=== PATIENT | male | born 1950 | race Hispanic/Latino ===

== ENCOUNTER 2018-12-19 23:35 | Inpatient (IN) | payer OTHER ==
[2018-12-20] MEDS ORDERED: ALBUTEROL 2.5 MG/3 ML NEB SOL ONE (00:13)
[2018-12-20 00:27] LABS: Absolute Monocytes 0.5 K/uL (0.1-1.3); Absolute Neutrophil 3.6 K/uL (1.8-8.0); Basophils % 1.2 % (0-1.3); Eosinophils % 5.4 % (0-4.4); Hematocrit 48.1 % (39.6-49.0); RBC Red Blood Cell Count 5.34 M/uL (4.33-5.43)
[2018-12-20 00:29] LABS: Protime INR 0.92
[2018-12-20 00:40] LABS: ALT/SGPT 19 U/L (12-78); AST/SGOT 14 U/L (15-37); Albumin 3.7 g/dL (3.4-5.0); Alkaline Phosphatase 126 U/L (45-117); BUN Blood Urea Nitrogen 6 mg/dL (7-18); Bicarbonate 24 mmol/L (21-32); Bilirubin Direct < 0.1 mg/dL (0-0.2); Bilirubin Total 0.3 mg/dL (0.2-1.0); CKMB Creatine Kinase MB 4.4 ng/mL (0.3-3.6); Creatine Phosphokinase 112 U/L (39-308); Glucose Level 225 mg/dL (74-106); Lipase 159 U/L (73-393); NT PRO-BNP 84 pg/mL (<125); Potassium 3.4 mmol/L (3.5-5.1); Protein, Total 7.7 g/dL (6.4-8.2); Sodium Level 139 mmol/L (136-145); Troponin (Emerg Dept Use Only) < 0.02 ng/mL (0.0-0.045)
--- NOTE | 2018-12-20 02:30 | ER ---
Nurse's Notes [facility] Name: Prakash Bailey Age: 68 yrs Sex: Male : 1950 Arrival Date: 12/19/2018 Time: 23:44 Bed 14 Private MD: Diagnosis: Chronic obstructive pulmonary disease, unspecified;Hypoxemia Presentation: 12/19 23:30 Presenting complaint: EMS states: general weakness and wheezing. Transition of care: cc3 patient was not received from another setting of care. Onset of symptoms was December 19, 2018. Risk Assessment: Do you want to hurt yourself or someone else? Patient reports no desire to harm self or others. Initial Sepsis Screen: Does the patient meet any 2 criteria? No. Patient's initial sepsis screen is negative. Does the patient have a suspected source of infection? No. Patient's initial sepsis screen is negative. Care prior to arrival: Medication(s) given: Albuterol Neb x 1, Atrovent Neb x 1, given by EMS. 23:30 Method Of Arrival: EMS: [facility] cc3 23:30 Acuity: BILL 3 cc3 Triage Assessment: 23:30 General: Appears in no apparent distress. unkempt, Behavior is calm, cooperative. Pain: cc3 Denies pain. EENT: No signs and/or symptoms were reported regarding the EENT system. Neuro: Level of Consciousness is awake, alert, obeys commands, Oriented to person, place, time, situation, Appropriate for age. Cardiovascular: Denies chest pain. Respiratory: Airway is patent Respiratory effort is even, unlabored, Respiratory pattern is regular, symmetrical. GI: Abdomen is round non-distended. : No signs and/or symptoms were reported regarding the genitourinary system. Derm: No signs and/or symptoms reported regarding the dermatologic system. Musculoskeletal: Circulation, motion, and sensation intact. Range of motion: intact in all extremities. Historical: - Allergies: 23:30 Aspirin; cc3 - PMHx: 23:30 Diabetes - IDDM; Hypertension; Substance Abuse; cc3 - Immunization history:: Adult Immunizations not up to date. - Social history:: Smoking status: Patient uses tobacco products, smokes one pack cigarettes per day. - Ebola Screening: : No symptoms or risks identified at this time. Screenin:30 Abuse screen: Denies threats or abuse. Denies injuries from another. Nutritional cc3 screening: No deficits noted. Tuberculosis screening: No symptoms or risk factors identified. Fall Risk Ambulatory Aid- None/Bed Rest/Nurse Assist (0 pts). Gait- Normal/Bed Rest/Wheelchair (0 pts) Mental Status- Oriented to own ability (0 pts). Assessment: 23:30 General: see triage assessment. cc3 12/20 00:30 Reassessment: Patient appears in no apparent distress at this time. Patient and/or cc3 family updated on plan of care and expected duration. Pain level reassessed. Patient is alert, oriented x 3, equal unlabored respirations, skin warm/dry/pink. 01:09 Reassessment: Patient appears in no apparent distress at this time. Patient and/or cc3 family updated on plan of care and expected duration. Pain level reassessed. Patient is alert, oriented x 3, equal unlabored respirations, skin warm/dry/pink. 02:26 Reassessment: Patient appears in no apparent distress at this time. Patient and/or cc3 family updated on plan of care and expected duration. Pain level reassessed. Patient is alert, oriented x 3, equal unlabored respirations, skin warm/dry/pink. 03:30 Reassessment: Patient appears in no apparent distress at this time. Patient and/or cc3 family updated on plan of care and expected duration. Pain level reassessed. Patient is alert, oriented x 3, equal unlabored respirations, skin warm/dry/pink. Patient came back from CT scan, awaiting result. Patient for admission, Dr. Quach said to wait for the CT scan result before sending the patient for admission. 04:00 Reassessment: Patient appears in no apparent distress at this time. Patient and/or cc3 family updated on plan of care and expected duration. Pain level reassessed. Patient is alert, oriented x 3, equal unlabored respirations, skin warm/dry/pink. CT report is now available with result of negative for PE. Room available at 412, called for report but was told that the nurse who will receive will just call me back. 04:41 Reassessment: Called again extension [phone] for report but was told that the nurse who cc3 will receive will call me back, charge nurse Sangeetha informed. 04:58 Reassessment: Report handed over to RACHEL Arndt for continuity of care. cc3 05:10 Reassessment: Patient appears in no apparent distress at this time. Patient and/or cc3 family updated on plan of care and expected duration. Pain level reassessed. Patient is alert, oriented x 3, equal unlabored respirations, skin warm/dry/pink. Patient left ER for admission vitally stable by wheelchair escorted by senior electronics technician Sathish. Vital Signs: 12/19 23:30 BP 151 / 99; Pulse 103; Resp 20 S; Temp 98.4(O); Pulse Ox 86% on R/A; Weight 63.5 kg cc3 (R); Height 5 ft. 7 in. (170.18 cm) (R); 12/20 00:30 BP 125 / 89; Pulse 98; Resp 18 S; Pulse Ox 90% on 2 lpm NC; cc3 01:08 BP 141 / 75; Pulse 110; Resp 20 S; Pulse Ox 90% on 2 lpm NC; cc3 02:27 BP 134 / 77; Pulse 108; Resp 20 S; Pulse Ox 83% on R/A; cc3 03:10 BP 126 / 77; Pulse 105; Resp 17 S; Pulse Ox 93% on 2 lpm NC; cc3 04:10 BP 124 / 68; Pulse 95; Resp 17 S; Pulse Ox 92% on 2 lpm NC; cc3 04:30 BP 126 / 71; Pulse 106; Resp 18 S; Pulse Ox 95% on 2 lpm NC; cc3 04:50 BP 125 / 67; Pulse 108; Resp 17 S; Pulse Ox 94% on 2 lpm NC; cc3 12/19 23:30 Body Mass Index 21.93 (63.50 kg, 170.18 cm) cc3 12/19 23:30 90% on 2 LPM via nasal cannula cc3 ED Course: 23:30 Patient has correct armband on for positive identification. Bed in low position. Call cc3 light in reach. Side rails up X2. Pulse ox on. NIBP on. 23:30 Arm band placed on right wrist. Patient notified of wait time. cc3 23:30 Maintain EMS IV. Dressing intact. Good blood return noted. Site clean \T\ dry. Gauge \T\ cc 3 site: gauge 20 right forearm. 23:44 Patient arrived in ED. fc 23:45 Main, Eh, MD is Attending Physician. tw4 23:46 Usha Gamez is Primary Nurse. cc3 23:50 Triage completed. cc3 12/20 00:11 X-ray completed. Portable x-ray completed in exam room. Patient tolerated procedure jb2 well. 00:29 XRAY CXR (1 view) In Process Unspecified. EDMS 02:28 Carolyn Rivas MD is Hospitalizing Provider. tw4 03:[address] via stretcher. kw1 03:26 CT completed. Patient tolerated procedure well. Patient moved back from CT. kw1 04:30 No provider procedures requiring assistance completed. Patient admitted, IV remains in cc3 place. Administered Medications: 00:00 Drug: Albuterol 2.5 mg Route: Inhalation; cc3 00:30 Drug: Albuterol 2.5 mg Route: Inhalation; cc3 00:57 Drug: Albuterol 2.5 mg Route: Inhalation; cc3 02:38 Drug: SOLU-Medrol 125 mg Route: IVP; Site: right forearm; cc3 03:00 Follow up: Response: No adverse reaction cc3 Outcome: 02:29 Decision to Hospitalize by Provider. tw4 04:58 Admitted to Tele accompanied by nurse, via stretcher, room 412, with oxygen, with cc3 chart, Report called to Fariha Arndt 04:58 Condition: stable 04:58 Instructed on the need for admit, Demonstrated understanding of instructions. 05:13 Patient left the ED. cc3 Signatures: Dispatcher [employer] EDTX Owen Marie jb2 Sangeetha Elizalde RN RN Fifi Dave kw1 Eh Quach MD MD tw4 Usha Gamez cc3 Corrections: (The following items were deleted from the chart) 01:16 00:30 BP 125 / 89; Pulse 98bpm; Resp 18bpm; Spontaneous; Pulse Ox 94% 2 lpm Nasal cc3 Cannula; cc3 01:16 01:08 BP 141 / 75; Pulse 110bpm; Resp 20bpm; Spontaneous; Pulse Ox 94% 2 lpm Nasal cc3 Cannula; cc3
--- NOTE | 2018-12-20 02:30 | EDPHYS ---
Physician Documentation [facility] Name: Prakash Bailey Age: 68 yrs Sex: Male : 1950 Arrival Date: 12/19/2018 Time: 23:44 Bed 14 Private MD: ED Physician Eh Quach HPI: 12/20 03:24 This 68 yrs old Male presents to ER via EMS with complaints of COPD tw4 Exacerbation. 03:24 The patient has shortness of breath at rest. Onset: The symptoms/episode began/occurred tw4 yesterday. Duration: The symptoms are continuous, and are unchanged since they started. The patient has not experienced similar symptoms in the past. Historical: - Allergies: 12/19 23:30 Aspirin; cc3 - PMHx: 23:30 Diabetes - IDDM; Hypertension; Substance Abuse; cc3 - Immunization history:: Adult Immunizations not up to date. - Social history:: Smoking status: Patient uses tobacco products, smokes one pack cigarettes per day. - Ebola Screening: : No symptoms or risks identified at this time. ROS: 12/20 03:24 Constitutional: Negative for fever, chills, and weight loss, Eyes: Negative for injury, tw4 pain, redness, and discharge, Cardiovascular: Negative for chest pain, palpitations, and edema, Abdomen/GI: Negative for abdominal pain, nausea, vomiting, diarrhea, and constipation, Back: Negative for injury and pain, MS/Extremity: Negative for injury and deformity, Skin: Negative for injury, rash, and discoloration. Respiratory: Positive for cough, shortness of breath, at rest. Negative for dyspnea on exertion, hemoptysis, orthopnea, pleurisy. Exam: 03:24 Constitutional: This is a well developed, well nourished patient who is awake, alert, tw4 and in no acute distress. Head/Face: Normocephalic, atraumatic. Chest/axilla: Normal chest wall appearance and motion. Nontender with no deformity. No lesions are appreciated. Cardiovascular: Regular rate and rhythm with a normal S1 and S2. No gallops, murmurs, or rubs. Normal PMI, no JVD. No pulse deficits. Abdomen/GI: Soft, non-tender, with normal bowel sounds. No distension or tympany. No guarding or rebound. No evidence of tenderness throughout. Back: No spinal tenderness. No costovertebral tenderness. Full range of motion. MS/ Extremity: Pulses equal, no cyanosis. Neurovascular intact. Full, normal range of motion. Neuro: Awake and alert, GCS 15, oriented to person, place, time, and situation. Cranial nerves II-XII grossly intact. Motor strength 5/5 in all extremities. Sensory grossly intact. Cerebellar exam normal. Normal gait. 03:24 Respiratory: mild respiratory distress is noted, Respirations: normal, Breath sounds: wheezing: expiratory is heard diffusely. Vital Signs: 12/19 23:30 BP 151 / 99; Pulse 103; Resp 20 S; Temp 98.4(O); Pulse Ox 86% on R/A; Weight 63.5 kg cc3 (R); Height 5 ft. 7 in. (170.18 cm) (R); 12/20 00:30 BP 125 / 89; Pulse 98; Resp 18 S; Pulse Ox 90% on 2 lpm NC; cc3 01:08 BP 141 / 75; Pulse 110; Resp 20 S; Pulse Ox 90% on 2 lpm NC; cc3 02:27 BP 134 / 77; Pulse 108; Resp 20 S; Pulse Ox 83% on R/A; cc3 03:10 BP 126 / 77; Pulse 105; Resp 17 S; Pulse Ox 93% on 2 lpm NC; cc3 04:10 BP 124 / 68; Pulse 95; Resp 17 S; Pulse Ox 92% on 2 lpm NC; cc3 04:30 BP 126 / 71; Pulse 106; Resp 18 S; Pulse Ox 95% on 2 lpm NC; cc3 04:50 BP 125 / 67; Pulse 108; Resp 17 S; Pulse Ox 94% on 2 lpm NC; cc3 12/19 23:30 Body Mass Index 21.93 (63.50 kg, 170.18 cm) cc3 12/19 23:30 90% on 2 LPM via nasal cannula cc3 MDM: 23:45 Patient medically screened. tw4 12/20 03:24 Differential diagnosis: Anemia Anxiety Reaction pneumonia, Pneumothorax pulmonary tw4 edema, reactive airway disease. Data reviewed: vital signs, nurses notes. Counseling: I had a detailed discussion with the patient and/or guardian regarding: the historical points, exam findings, and any diagnostic results supporting the discharge/admit diagnosis. Physician consultation: Carolyn Rivas MD was called at 02:36, regarding admission, patient's condition, need to evaluate the patient as soon as possible, and will see patient in inpatient room. 03:26 Medication response: albuterol nebulizer treatment(s) partially relieved the patient's tw4 wheezing. Response to treatment: the patient's symptoms have mildly improved after treatment, and as a result, I will admit patient. 12/19 23:54 Order name: Blood Culture Adult (2) 12/19 23:54 Order name: BMP; Complete Time: 02:27 12/20 02:27 Interpretation: Normal except: K 3.4; GLUC 225; BUN 6. 12/19 23:54 Order name: CBC with Diff 12/19 23:54 Order name: Ckmb; Complete Time: 02:27 12/20 02:27 Interpretation: Normal except: CKMB 4.4. 12/19 23:54 Order name: CPK; Complete Time: 02:27 12/20 02:27 Interpretation: Within normal limits: CPK 112. 12/19 23:54 Order name: D-Dimer 12/19 23:54 Order name: Hepatic Function; Complete Time: 02:27 12/20 02:27 Interpretation: Normal except: AST 14; ALK 126; GLOB 4.0; A/G 0.9. 12/19 23:54 Order name: Lipase; Complete Time: 02:27 12/20 02:27 Interpretation: Within normal limits: LIP 159. 12/19 23:54 Order name: Magnesium; Complete Time: 02:27 12/20 02:27 Interpretation: Within normal limits: MG 2.0. 12/19 23:54 Order name: NT PRO-BNP; Complete Time: 02:12/20 02:28 Interpretation: Within normal limits: NT PRO-BNP 84. 12/19 23:54 Order name: PT-INR 12/19 23:54 Order name: Ptt, Activated 12/19 23:54 Order name: Troponin (emerg Dept Use Only); Complete Time: 02:12/20 02:28 Interpretation: Within normal limits: TROPED < 0.02. 12/20 02:10 Order name: Urine Dipstick--Ancillary (enter results) 2 12/19 23:54 Order name: Call for Old EKG; Complete Time: 00:29 12/19 23:54 Order name: XRAY CXR (1 view) 12/19 23:54 Order name: EKG; Complete Time: 23:55 12/20 02:43 Order name: NPO EDMS 12/20 02:43 Order name: Urinalysis EDMS 12/20 02:43 Order name: CBC with Automated Diff EDMS 12/20 02:43 Order name: CBC with Automated Diff EDMS 12/20 02:43 Order name: Comprehensive Metabolic Panel EDMS 12/20 02:43 Order name: Comprehensive Metabolic Panel EDMS 12/20 02:43 Order name: Magnesium EDMS 12/20 02:43 Order name: Magnesium EDMS 12/20 02:43 Order name: Phosphorus EDMS 12/20 02:43 Order name: Phosphorus EDMS 12/20 02:44 Order name: CT Chest For PE Angio 12/19 23:54 Order name: Cardiac monitoring; Complete Time: 23:59 12/19 23:54 Order name: EKG - Nurse/Tech; Complete Time: 00:31 12/19 23:54 Order name: IV Saline Lock; Complete Time: 00:30 12/19 23:54 Order name: Labs collected and sent; Complete Time: 00:30 12/19 23:54 Order name: O2 Per Protocol; Complete Time: 00:00 12/19 23:54 Order name: O2 Sat Monitoring; Complete Time: 00:00 EC:24 Rate is 103 beats/min. Rhythm is regular, Sinus tachycardia. QRS [place] is Normal. DE tw4 interval is normal. QRS interval is normal. QT interval is normal. No Q waves. T waves are Normal. No ST changes noted. Clinical impression: Sinus tachycardia. Interpreted by me. Reviewed by me. Administered Medications: 00:00 Drug: Albuterol 2.5 mg Route: Inhalation; cc3 00:30 Drug: Albuterol 2.5 mg Route: Inhalation; cc3 00:57 Drug: Albuterol 2.5 mg Route: Inhalation; cc3 02:38 Drug: SOLU-Medrol 125 mg Route: IVP; Site: right forearm; cc3 03:00 Follow up: Response: No adverse reaction cc3 Disposition: 12/20/18 02:29 Hospitalization ordered by Carolyn Rivas for Observation. Preliminary diagnosis are Chronic obstructive pulmonary disease, unspecified, Hypoxemia. - Bed requested for Telemetry/MedSurg (observation). - Status is Observation. cc3 - Condition is Fair. - Problem is an ongoing problem. - Symptoms are unchanged. UTI on Admission? No Signatures: Dispatcher [employer] Natasha Pat, RN RN cg Eh Quach MD MD tw4 Usha Gamez cc3 Corrections: (The following items were deleted from the chart) 03:09 02:29 Hospitalization Ordered by Carolyn Rivas MD for Observation. Preliminary cg diagnosis is Chronic obstructive pulmonary disease, unspecified; Hypoxemia. Bed requested for Telemetry/MedSurg (observation). Status is Observation. Condition is Fair. Problem is an ongoing problem. Symptoms are unchanged. UTI on Admission? No. tw4 05:13 03:09 12/20/2018 02:29 Hospitalization Ordered by Carolyn Rivas MD for Observation. cc3 Preliminary diagnosis is Chronic obstructive pulmonary disease, unspecified; Hypoxemia. Bed requested for Telemetry/MedSurg (observation). Status is Observation. Condition is Fair. Problem is an ongoing problem. Symptoms are unchanged. UTI on Admission? No. cg
[2018-12-20] MEDS ORDERED: MAGNESIUM HYDROXIDE 8% 30 ML PO PRN (02:38)
[2018-12-20] MEDS ORDERED: ALPRAZOLAM 0.25 MG TABLET PO PRN (02:38)
[2018-12-20] MEDS ORDERED: ACETAMINOPHEN 500 MG TAB PO PRN (02:38)
[2018-12-20] MEDS ORDERED: ONDANSETRON 4 MG/2 ML VIAL IV PRN (02:38)
[2018-12-20] MEDS ORDERED: METHYLPREDNISOLONE 125 MG INJ ONE (02:44)
[2018-12-20 02:54] LABS: Urine Blood NEGATIVE (NEG); Urine Glucose 1+ (NEG); Urine Protein NEGATIVE (NEG); Urine Specific Gravity <1.005 (1.005-1.030); Urine pH 5.5 (5.0-7.0)
[2018-12-20] MEDS: PANTOPRAZOLE 40MG TABLET PO SCH (05:41)
[2018-12-20] MEDS: LEVOTHYROXINE SOD 0.05 MG TABLET PO SCH (05:42)
[2018-12-20] MEDS ORDERED: METHYLPREDNISOLONE 125 MG INJ IV SCH (06:00)
[2018-12-20 06:02] VITALS: BMI 25.0
[2018-12-20 06:09] LABS: Urine Culture Reflex Order NOT NEEDED; Urine RBC NONE SEEN /HPF (NONE SEEN)
[2018-12-20 06:10] LABS: Urine Bacteria <20 /HPF (NONE SEEN)
[2018-12-20] MEDS: ALBUTEROL 2.5 MG/3 ML NEB SOL NEB SCH ×3 (07:35→20:00)
[2018-12-20] MEDS: IPRATROPIUM BROM 0.5MG/2.5ML NEB SCH ×3 (07:35→20:00)
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
--- NOTE | 2018-12-20 08:16 | RAD REPORT ---
EXAM DESCRIPTION: RAD - Chest Single View - 12/20/2018 12:13 am CLINICAL HISTORY: COUGH Chest pain. COMPARISON: Chest Single View dated 03/04/2017; Chest Single View dated 01/29/2017; Chest Single View dated 01/28/2017; Chest Single View dated 10/14/2016 FINDINGS: Portable technique limits examination quality. The lungs are grossly clear. The heart is normal in size. No displaced fractures.Aortic atheroscleros is. IMPRESSION: No acute intrathoracic process suspected.
--- NOTE | 2018-12-20 08:19 | RAD REPORT ---
EXAM DESCRIPTION: CT - Chest For Pe Angio - 12/20/2018 6:52 am CLINICAL HISTORY: Chest pain. COPD COMPARISON: CTANGIO CHEST FOR PE dated 08/11/2012 TECHNIQUE: CT angiogram of the pulmonary arteries was performed with MIP. All CT scans are performed using dose optimization technique as appropriate and may include automated exposure control or mA/KV adjustment according to patient size. FINDINGS: No evidence of pulmonary thromboembolism. No acute aortic finding demonstrated. The lungs are grossly clear with motion artifact mildly limiting assessment. No significant pericardial or pleural fluid. No concerning bony finding. IMPRESSION: No evidence of pulmonary thromboembolism.
[2018-12-20] MEDS ORDERED: CEFTRIAXONE 1 GM/NS 50 ML 1 GM/50 ML BAG IV SCH (09:00)
[2018-12-20] MEDS ORDERED: PNEUMOCOCCAL VACCINE 0.5 ML IMVAC ONE (09:00)
[2018-12-20] MEDS: CEFTRIAXONE/SWI 1gm 1 GM/10 ML SYR IV SCH ×2 (09:05→22:44)
[2018-12-20] MEDS: ENOXAPARIN 40 MG/0.4 ML SQ SCH (09:05)
[2018-12-20] MEDS ORDERED: INSULIN -REGULAR HUMAN 50 UNIT/0.5 ML ML SQ ONE (11:25)
[2018-12-20] MEDS ORDERED: GLUCAGON 1 MG/VIAL IM PRN ×2 (11:25→14:28)
[2018-12-20] MEDS ORDERED: D50W 25 GM/50 ML SYRINGE IV PRN ×2 (11:25→14:28)
[2018-12-20] MEDS: INSULIN -REGULAR HUMAN 50 UNIT/0.5 ML ML SQ SCH ×2 (15:47→22:44)
--- NOTE | 2018-12-20 17:10 | EKG ---
Test Date: 2018-12-20 Test Time: 00:20:13 Manager Book: VALDO MEASUREMENT RESULTS: Intervals: Rate: 103 FL: 194 QRSD: 74 QT: 354 QTc: 463 [place]: P: 77 FL: 194 QRS: 85 T: 75 INTERPRETIVE STATEMENTS: Sinus tachycardia Otherwise normal ECG Compared to ECG 03/04/2017 19:20:02 Sinus rhythm no longer present Electronically Signed On 12-20-18 17:07:08 RN CORRECTIONAL by Nathan Luis
[2018-12-20 17:23] LABS: Urine Appearance CLEAR; Urine Bilirubin NEGATIVE (NEG); Urine Blood NEGATIVE (NEG); Urine Color YELLOW; Urine Glucose 3+ (NEG); Urine Protein NEGATIVE (NEG); Urine Specific Gravity >=1.030 (1.005-1.030); Urine Urobilinogen 0.2 mg/dL (0.2-1.0); Urine pH 5.5 (5.0-7.0)
[2018-12-20 17:30] LABS: Urine Microscopic Reflex NO UMIC
[2018-12-20] MEDS: NICOTINE 21 MG/PAT TD SCH (18:15)
[2018-12-20] MEDS ORDERED: ALPRAZOLAM 0.25 MG TABLET PO ONE (22:16)
[2018-12-20] MEDS ORDERED: MORPHINE 2 MG/ML SYR IV ONE (22:16)
[2018-12-20] MEDS ORDERED: MORPHINE 4 MG/ML SYR ONE (22:51)
[2018-12-20 23:02] LABS: CKMB Creatine Kinase MB 2.8 ng/mL (0.3-3.6); Creatine Phosphokinase 70 U/L (39-308); Troponin I < 0.02 ng/mL (0.0-0.045)
[2018-12-21] MEDS: ALBUTEROL 2.5 MG/3 ML NEB SOL NEB SCH (02:00)
[2018-12-21] MEDS: IPRATROPIUM BROM 0.5MG/2.5ML NEB SCH (02:00)
[2018-12-21] MEDS ORDERED: ALBUTEROL 2.5 MG/3 ML NEB SOL NEB PRN (02:28)
[2018-12-21] MEDS ORDERED: IPRATROPIUM BROM 0.5MG/2.5ML NEB PRN (02:29)
[2018-12-21 04:19] LABS: Absolute Lymphocytes (CBC) 1.1 K/uL (0.7-4.9); Absolute Monocytes 0.7 K/uL (0.1-1.3); Absolute Neutrophil 16.1 K/uL (1.8-8.0); Basophils % 0.4 % (0-1.3); Hematocrit 42.5 % (39.6-49.0); Lymphocytes % 6.4 % (15.3-44.8); MPV 8.8 fL (7.6-11.3); Monocytes % 3.9 % (3.3-12.3); RBC Red Blood Cell Count 4.66 M/uL (4.33-5.43)
[2018-12-21 04:31] LABS: ALT/SGPT 12 U/L (12-78); AST/SGOT 10 U/L (15-37); Albumin 3.2 g/dL (3.4-5.0); Alkaline Phosphatase 77 U/L (45-117); BUN Blood Urea Nitrogen 16 mg/dL (7-18); Bicarbonate 26 mmol/L (21-32); Bilirubin Total 0.4 mg/dL (0.2-1.0); Glucose Level 218 mg/dL (74-106); Magnesium 1.9 mg/dL (1.8-2.4); Phosphorus 2.8 mg/dL (2.5-4.9); Potassium 4.1 mmol/L (3.5-5.1); Protein, Total 6.9 g/dL (6.4-8.2); Sodium Level 139 mmol/L (136-145)
[2018-12-21 05:24] LABS: Blood Morphology Comment NOT SEEN (NOT SEEN); Platelet Estimate ADEQ
[2018-12-21] MEDS: PANTOPRAZOLE 40MG TABLET PO SCH (06:08)
[2018-12-21] MEDS: LEVOTHYROXINE SOD 0.05 MG TABLET PO SCH (06:08)
--- NOTE | 2018-12-21 06:59 | EKG ---
Test Date: 2018-12-20 Test Time: 22:15:15 Executive Creative Director: RT MEASUREMENT RESULTS: Intervals: Rate: 99 AR: 202 QRSD: 86 QT: 362 QTc: 464 [place]: P: 70 AR: 202 QRS: 63 T: 63 INTERPRETIVE STATEMENTS: Normal sinus rhythm Normal ECG Compared to ECG 12/20/2018 00:20:13 Sinus tachycardia no longer present Electronically Signed On 12-21-18 06:50:55 NUCLEAR EQUIPMENT RESEARCH ENGINEER by Nathan Luis
[2018-12-21] MEDS: INSULIN -REGULAR HUMAN 50 UNIT/0.5 ML ML SQ SCH ×2 (08:42→12:06)
[2018-12-21] MEDS: ENOXAPARIN 40 MG/0.4 ML SQ SCH (08:43)
[2018-12-21] MEDS: CEFTRIAXONE/SWI 1gm 1 GM/10 ML SYR IV SCH (08:43)
[2018-12-21] MEDS: NICOTINE 21 MG/PAT TD SCH (08:44)
[2018-12-21 12:52] VITALS: BP 133/69; TEMP 98.7
[2018-12-21 13:09] VITALS: O2SAT 92
[2018-12-21] MEDS ORDERED: IPRATROPIUM BROM 0.5MG/2.5ML NEB SCH (14:00)
[2018-12-21] MEDS ORDERED: LEVALBUTEROL 0.63 MG/3 ML NEB NEB SCH (14:00)
--- NOTE | 2018-12-21 16:03 | ECHO ---
HEIGHT: 5 ft 7 in WEIGHT: 160 lb 0 oz DATE OF STUDY: 12/21/[address]: Lacy Story MD 2-DIMENSIONAL: YES M.MODE: YES DOPPLER: YES COLOR FLOW: YES TDS: YES PORTABLE: NO DEFINITY: NO BUBBLE STUDY: NO DIAGNOSIS: CHRONIC OBSTRUCTIVE PULMONARY DISEASE CARDIAC HISTORY: CATHERIZATION: NO SURGERY: NO PROSTHETIC VALVE: NO PACEMAKER: NO MEASUREMENTS (cm) DIASTOLIC (NORMALS) SYSTOLIC (NORMALS) IVSd 1.0 (0.6-1.2) LA Diam 3.0 (1.9-4.0) LVEF 60% LVIDd 2.9 (3.5-5.7) LVIDs 2.0 (2.0-3.5) %FS 31% LVPWd 1.3 (0.6-1.2) Ao Diam 2.8 (2.0-3.7) 2 DIMENSIONAL ASSESSMENT: RIGHT ATRIUM: NORMAL LEFT ATRIUM: NORMAL RIGHT VENTRICLE: NORMAL LEFT VENTRICLE: NORMAL TRICUSPID VALVE: NORMAL MITRAL VALVE: NORMAL PULMONIC VALVE: NORMAL AORTIC VALVE: SCLEROSIS PERICARDIAL EFFUSION: NONE AORTIC ROOT: NORMAL LEFT VENTRICULAR WALL MOTION: NORMAL. DOPPLER/COLOR FLOW: NO AORTIC STENOSIS OR AORTIC REGURGITATION. MILD TRICUSPID REGURGITATION. NORMAL RIGHT VENTRICULAR SYSTOLIC PRESSURE. COMMENTS: NORMAL LEFT VENTRICULAR EJECTION FRACTION. AORTIC SCLEROSIS WITH NO AORTIC STENOSIS OR AORTIC REGURGITATION. MILD TRICUSPID REGURGITATION. TECHNOLOGIST: COLIN VILLASEÑOR
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
== END 2018-12-21 18:01 | disposition home or self-care (01) | DRG 191 ==
LOC: ER 23:35 → ERHOLD 12-20 02:44 → 4TH 12-20 05:02
PROVIDERS: ADMIT Hospitalist; ATTEND Family Medicine
DX: J44.1 Chronic obstructive pulmonary disease with (acute) exacerbation (principal); F31.4 Bipolar disorder, current episode depressed, severe, without psychotic features; F17.210 Nicotine dependence, cigarettes, uncomplicated; I10 Essential (primary) hypertension; E11.9 Type 2 diabetes mellitus without complications; Z79.4 Long term (current) use of insulin; E78.5 Hyperlipidemia, unspecified; E03.9 Hypothyroidism, unspecified; K21.9 Gastro-esophageal reflux disease without esophagitis
CPT/HCPCS: 36415; 71045; 71275; 80048; 80053; 80076; 81003; 81015; 82550; 82553; 82947; 82962; 83690; 83735; 83880; 84100; 84484; 85025; 85379; 85610; 85730; 87040; 87205; 93005; 93306; 96374; 99285; J0696; J1650; J2930; Q9967

== ENCOUNTER 2019-01-31 21:49 | Emergency (ER) | payer OTHER ==
[2019-01-31] MEDS ORDERED: IPRATROPIUM BROM 0.5MG/2.5ML ONE (22:30)
[2019-01-31] MEDS ORDERED: ALBUTEROL 2.5 MG/3 ML NEB SOL ONE (22:30)
[2019-01-31 23:07] LABS: Absolute Lymphocytes (CBC) 0.9 K/uL (0.7-4.9); Absolute Monocytes 0.7 K/uL (0.1-1.3); Absolute Neutrophil 8.4 K/uL (1.8-8.0); Basophils % 0.8 % (0-1.3); Eosinophils % 0.4 % (0-4.4); Lymphocytes % 8.5 % (15.3-44.8); MPV 8.6 fL (7.6-11.3); Monocytes % 7.2 % (3.3-12.3)
[2019-01-31 23:08] LABS: Protime INR 1.12
[2019-01-31 23:17] LABS: BUN Blood Urea Nitrogen 11 mg/dL (7-18); Bicarbonate 27 mmol/L (21-32); Glucose Level 150 mg/dL (74-106); NT PRO-BNP 240 pg/mL (<125); Potassium 3.3 mmol/L (3.5-5.1); Sodium Level 138 mmol/L (136-145); Troponin (Emerg Dept Use Only) < 0.02 ng/mL (0.0-0.045)
--- NOTE | 2019-02-01 01:19 | ER ---
Nurse's Notes [facility] Name: Prakash Bailey Age: 68 yrs Sex: Male : 1950 Arrival Date: 01/31/2019 Time: 21:50 Bed 19 Private MD: Diagnosis: Acute bronchitis;Epilepsy and recurrent seizures;Abuse of non-psychoactive substances;Alcohol abuse Presentation: 01/31 21:51 Presenting complaint: EMS states: Hi son said he has been missing for about a week and ed1 he came over for dinner tonight and he has been drinking and smoking synthetic. He may have had a seizure. Transition of care: patient was not received from another setting of care. Onset of symptoms was January 31, 2019. Risk Assessment: Do you want to hurt yourself or someone else? Patient reports no desire to harm self or others. Initial Sepsis Screen: Does the patient meet any 2 criteria? No. Patient's initial sepsis screen is negative. Does the patient have a suspected source of infection? No. Patient's initial sepsis screen is negative. Care prior to arrival: Glucose check: 203. 21:51 Method Of Arrival: EMS: [facility] ed1 21:51 Acuity: BILL 3 ed1 Triage Assessment: 21:52 General: Appears unkempt, Behavior is calm, cooperative, Smells of alcohol, urine. ed1 Pain: Denies pain. EENT: No signs and/or symptoms were reported regarding the EENT system. Neuro: Level of Consciousness is awake, alert, obeys commands, Oriented to person, place. Cardiovascular: Denies chest pain, Heart tones S1 S2 present. Respiratory: Reports shortness of breath at rest Airway is patent Respiratory effort is even, unlabored, Respiratory pattern is regular, symmetrical, Breath sounds are clear bilaterally. Onset: The symptoms/episode began/occurred today, the patient has mild shortness of breath. GI: Abdomen is non-distended, Bowel sounds present X 4 quads. Abd is soft and non tender X 4 quads. Patient currently denies diarrhea, nausea, vomiting. : No signs and/or symptoms were reported regarding the genitourinary system. Derm: Skin is intact, is healthy with good turgor, Skin is dry, Skin is normal, Skin temperature is warm. Musculoskeletal: Circulation, motion, and sensation intact. Range of motion: intact in all extremities. Historical: - Allergies: 21:52 Aspirin; ed1 - Home Meds: 21:52 Unable to obtain [Active]; ed1 - PMHx: 21:52 Diabetes - IDDM; Hypertension; Substance Abuse; ed1 - PSHx: 21:52 Unable to obtain; ed1 - Immunization history:: Adult Immunizations unknown, Flu vaccine status is unknown. - Social history:: Smoking status: Patient uses tobacco products, smokes one pack cigarettes per day. Patient uses alcohol, street drugs. - Ebola Screening: : Patient negative for fever greater than or equal to 101.5 degrees Fahrenheit, and additional compatible Ebola Virus Disease symptoms Patient denies exposure to infectious person Patient denies travel to an Ebola-affected area in the 21 days before illness onset No symptoms or risks identified at this time. Screenin:52 Abuse screen: Denies threats or abuse. Denies injuries from another. Nutritional ed1 screening: No deficits noted. Tuberculosis screening: No symptoms or risk factors identified. Fall Risk None identified. Assessment: 21:55 General: See triage assessment. Cardiovascular: Rhythm is regular. ed1 22:32 Reassessment: Patient appears in no apparent distress at this time. No changes from ed1 previously documented assessment. Patient and/or family updated on plan of care and expected duration. Pain level reassessed. 23:18 Reassessment: Patient appears in no apparent distress at this time. Patient and/or ed1 family updated on plan of care and expected duration. Pain level reassessed. Patient denies pain at this time. Respiratory: Airway is patent Respiratory effort is even, unlabored, Respiratory pattern is regular, symmetrical, Breath sounds are coarse bilaterally. 23:18 Neuro: Level of Consciousness is awake, alert, Oriented to person, place. ed1 0313 00:14 Reassessment: Patient appears in no apparent distress at this time. Patient and/or ed1 family updated on plan of care and expected duration. Pain level reassessed. 01:17 Reassessment: Patient appears in no apparent distress at this time. Patient and/or ed1 family updated on plan of care and expected duration. Pain level reassessed. Patient denies pain at this time. Neuro: Level of Consciousness is awake, alert. 01:33 Reassessment: Patient appears in no apparent distress at this time. Patient and/or ed1 family updated on plan of care and expected duration. Pain level reassessed. Pt medically discharged. No contact information for family member to pick pt up. Pt unable to provide contact information. Rhona Charge Nurse, notified. Ok for pt to stay in bed until morning. 02:35 Reassessment: Patient appears in no apparent distress at this time. Respiratory: Airway ed1 is patent Respiratory effort is even, unlabored, Respiratory pattern is regular, symmetrical. 03:35 Reassessment: Patient appears in no apparent distress at this time. Respiratory: Airway ed1 is patent Respiratory effort is even, unlabored, Respiratory pattern is regular, symmetrical. 04:35 Reassessment: Patient appears in no apparent distress at this time. Respiratory: Airway ed1 is patent Respiratory effort is even, unlabored, Respiratory pattern is regular, symmetrical. 05:15 Reassessment: Pt awake. Pt still unable to provide contact information for ed1 transportation home. Rhona Charge Nurse, notified. Pt assisted with self care, provided with belongings bag and given clean gown. Pt able to clean self and stand to walk to wheelchair. Neuro: Level of Consciousness is awake, alert, obeys commands, Oriented to person, place, situation. 05:42 Reassessment: Upon discharge to the [facility] pt. began to have seizure like activity.. Pt ed1 returned to exam room. Dr. Thrasher at bedside. 05:50 Neuro: Level of Consciousness is post ictal, Oriented to none Seizure activity Patient ed1 is post-ictal at this time. Respiratory: Airway is patent Respiratory effort is even, unlabored, Respiratory pattern is regular, symmetrical. 06:53 Reassessment: Patient appears in no apparent distress at this time. Neuro: Level of ed1 Consciousness is confused, Oriented to none. 07:45 Reassessment: Patient appears in no apparent distress at this time. Patient and/or hb family updated on plan of care and expected duration. Pain level reassessed. Pt resting with eyes closed, arousable to verbal stimuli. No seizure activity noted. Smells strongly of ETOH. 08:45 Reassessment: Patient appears in no apparent distress at this time. No changes from hb previously documented assessment. 09:22 Reassessment: Pt climbed out of bed, removed gown and urinated on the floor, found hb walking hallway naked, refused to get back in bed, very steady on feet. Pt cleaned of incontinence, placed in gown, and assisted back to bed. Dr. Park notified. Smells strongly of ETOH. No new orders at this time. 10:00 Reassessment: Patient appears in no apparent distress at this time. Pt resting with hb eyes closed. 11:00 Reassessment: Patient appears in no apparent distress at this time. No changes from hb previously documented assessment. Patient and/or family updated on plan of care and expected duration. Pain level reassessed. 11:15 Reassessment: Per Dr. Park, let pt sleep until sober. hb 12:00 Reassessment: Patient appears in no apparent distress at this time. No changes from hb previously documented assessment. Patient and/or family updated on plan of care and expected duration. Pain level reassessed. 13:00 Reassessment: Patient appears in no apparent distress at this time. Pt lethargic, hb answering questions appropriately. VSS. 14:15 Reassessment: Pt alert, sitting up in bed eating lunch tray. Unable to contact family hb members, all numbers provided are not in service. Winston called for pt. Vital Signs: 0312 21:52 BP 177 / 103; Pulse 88; Resp 20; Temp 98.3(O); Pulse Ox 100% on R/A; Pain 0/10; ed1 22:32 BP 145 / 76; Pulse 94; Resp 26; Pulse Ox 98% on R/A; Pain 0/10; ed1 23:18 BP 116 / 100; Pulse 79; Resp 17; Pulse Ox 88% on R/A; Pain 0/10; ed1 23:32 BP 122 / 64; Pulse 80; Resp 20; Pulse Ox 92% on 2 lpm NC; ed1 02/01 00:14 BP 119 / 71; Pulse 77; Resp 18; Pulse Ox 94% on 2 lpm NC; Pain 0/10; ed1 01:17 BP 109 / 67; Pulse 59; Resp 18; Pulse Ox 92% on 2 lpm NC; Pain 0/10; ed1 05:42 BP 166 / 94; Pulse 98; Resp 17; Pulse Ox 97% on 2 lpm NC; ed1 06:53 BP 142 / 75; Pulse 76; Resp 20; Pulse Ox 94% on 2 lpm NC; ed1 07:45 BP 138 / 78; Pulse 74; Resp 15; Pulse Ox 96% on R/A; Pain 0/10; hb 10:00 BP 136 / 76; Pulse 70; Resp 16; Pulse Ox 100% on R/A; hb 12:00 BP 130 / 70; Pulse 74; Resp 15; Pulse Ox 100% ; Pain 0/10; hb 14:00 BP 128 / 68; Pulse 70; Resp 16; Pulse Ox 100% on R/A; Pain 0/10; hb 03/12 23:18 O2 applied at 2L NC ed1 ED Course: 21:50 Patient arrived in ED. ed1 21:50 Jamar Thrasher MD is Attending Physician. gs 21:52 Triage completed. ed1 21:52 Arm band placed on. ed1 21:52 Patient has correct armband on for positive identification. Placed in gown. Bed in low ed1 position. Call light in reach. Side rails up X2. Pulse ox on. NIBP on. Warm blanket given. 22:05 Brenda Landaverde RN is Primary Nurse. ed1 22:26 XRAY Chest (1 view) In Process Unspecified. EDMS 22:26 Missed attempt(s): 22 gauge in right forearm. Bleeding controlled, band aid applied, ed1 catheter tip intact. 22:36 Inserted saline lock: 22 gauge in left forearm, using aseptic technique. Blood oe collected. 23:18 Oxygen administration via nasal cannula \T\ 2L/min Response to oxygen therapy: symptoms ed1 improved. 03/13 00:16 Repeat lab(s) drawn. by nv, sent to lab. ed1 01:33 No provider procedures requiring assistance completed. IV discontinued, intact, ed1 bleeding controlled, No redness/swelling at site. Pressure dressing applied. 01:35 Appears to be sleeping. Awaiting transportation. ed1 02:35 Appears to be sleeping. Awaiting transportation. ed1 03:35 Appears to be sleeping. Awaiting transportation. ed1 04:35 Appears to be sleeping. Awaiting transportation. ed1 05:42 Inserted saline lock: 22 gauge in left forearm, using aseptic technique. Oxygen ed1 administration via nasal cannula \T\ 2L/min. 06:53 CT completed. Pt tolerated procedure poorly. Patient moved to CT via stretcher. Patient eh moved back from CT. 07:01 CT Head Brain wo Cont In Process Unspecified. EDMS 07:09 Primary Nurse role handed off by Brenda Landaverde RN ed1 07:45 Shaunna Adam, RN is Primary Nurse. hb Administered Medications: 03 22:23 Drug: Albuterol 2.5 mg Route: Inhalation; tl2 23:00 Follow up: Response: No adverse reaction; No change in condition ed1 22:23 Drug: AtroVENT Aerosol 0.5 mg Route: Inhalation; tl2 23:00 Follow up: Response: No adverse reaction; Marked relief of symptoms ed1 02/01 06:01 Drug: Ativan 2 mg Route: IVP; Site: left forearm; ed1 07:00 Follow up: Response: No adverse reaction hb 08:08 Drug: Potassium Effervescent Tablet 50 mEq Route: PO; hb 08:40 Follow up: Response: No adverse reaction hb 08:08 Drug: Thiamine 100 mg Route: IV; Rate: bolus; Site: left forearm; hb 08:40 Follow up: Response: No adverse reaction; IV Status: Completed infusion hb Outcome: 01:19 Discharge ordered by MD. gonsalves 05:26 Discharged to [facility] ed1 05:26 Condition: good 05:26 Discharge instructions given to patient, Instructed on discharge instructions, follow up and referral plans. Demonstrated understanding of instructions, follow-up care. 05:26 Patient left the ED. ed1 08:26 Discharge ordered by . umer 14:57 Patient left the ED. hb Signatures: Dispatcher [employer] James Donahue MD MD cha Hagler, Ervin Brenda Landaverde RN RN ed1 Shaunna Adam RN RN Toya Pham RN RN tl2 Reid Dykes Gregory, MD MD gs Corrections: (The following items were deleted from the chart) 01/31 21:55 21:52 Pulse 88bpm; Resp 20bpm; Pulse Ox 100% RA; Temp 98.3F Oral; Pain 0/10; ed1 ed1 02/01 00:15 03 22:32 Reassessment: Patient appears in no apparent distress at this time. No ed1 changes from previously documented assessment. Patient and/or family updated on plan of care and expected duration. Pain level reassessed. Patient is alert, oriented x 3, equal unlabored respirations, skin warm/dry/pink. ed1 03/13 01:19 0312 23:18 Reassessment: Patient appears in no apparent distress at this time. Patient ed1 and/or family updated on plan of care and expected duration. Pain level reassessed. Patient is alert, oriented x 3, equal unlabored respirations, skin warm/dry/pink. Patient denies pain at this time. ed1 02/01 01:19 00:14 Reassessment: Patient appears in no apparent distress at this time. Patient ed1 and/or family updated on plan of care and expected duration. Pain level reassessed. Patient is alert, oriented x 3, equal unlabored respirations, skin warm/dry/pink. ed1 13:37 07:45 Reassessment: Patient appears in no apparent distress at this time. Patient hb and/or family updated on plan of care and expected duration. Pain level reassessed. Pt resting with eyes closed, arousable to verbal stimuli 13:37 09:22 Reassessment: Pt climbed out of bed, removed gown and urinated on the floor, hb found walking hallway naked, refused to get back in bed, very steady on feet. Pt cleaned of incontinence, placed in gown, and assisted back to bed. Dr. Park notified. No new orders at this time
--- NOTE | 2019-02-01 01:19 | EDPHYS ---
Physician Documentation [facility] Name: Prakash Bailey Age: 68 yrs Sex: Male : 1950 Arrival Date: 01/31/2019 Time: 21:50 Bed 19 Private MD: ED Physician Jamar Thrasher HPI: 02/01 00:21 This 68 yrs old Male presents to ER via EMS with complaints of Shortness Of gs Breath. 00:21 Onset: The symptoms/episode began/occurred yesterday. Severity of symptoms: At their gs worst the symptoms were moderate, in the emergency department the symptoms are unchanged. Modifying factors: the symptoms are aggravated by smoke. Associated signs and symptoms: Pertinent negatives: fever, vomiting. The patient has experienced similar episodes in the past, several times. Historical: - Allergies: 01/31 21:52 Aspirin; ed1 - Home Meds: 21:52 Unable to obtain [Active]; ed1 - PMHx: 21:52 Diabetes - IDDM; Hypertension; Substance Abuse; ed1 - PSHx: 21:52 Unable to obtain; ed1 - Immunization history:: Adult Immunizations unknown, Flu vaccine status is unknown. - Social history:: Smoking status: Patient uses tobacco products, smokes one pack cigarettes per day. Patient uses alcohol, street drugs. - Ebola Screening: : Patient negative for fever greater than or equal to 101.5 degrees Fahrenheit, and additional compatible Ebola Virus Disease symptoms Patient denies exposure to infectious person Patient denies travel to an Ebola-affected area in the 21 days before illness onset No symptoms or risks identified at this time. ROS: 02/01 00:21 All other systems are negative. gs Exam: 00:21 Head/Face: Normocephalic, atraumatic. Eyes: Pupils equal round and reactive to light, gs extra-ocular motions intact. Lids and lashes normal. Conjunctiva and sclera are non-icteric and not injected. Cornea within normal limits. Periorbital areas with no swelling, redness, or edema. ENT: Nares patent. No nasal discharge, no septal abnormalities noted. Tympanic membranes are normal and external auditory canals are clear. Oropharynx with no redness, swelling, or masses, exudates, or evidence of obstruction, uvula midline. Mucous membranes moist. Neck: Trachea midline, no thyromegaly or masses palpated, and no cervical lymphadenopathy. Supple, full range of motion without nuchal rigidity, or vertebral point tenderness. No Meningismus. Chest/axilla: Normal chest wall appearance and motion. Nontender with no deformity. No lesions are appreciated. Cardiovascular: Regular rate and rhythm with a normal S1 and S2. No gallops, murmurs, or rubs. Normal PMI, no JVD. No pulse deficits. Abdomen/GI: Soft, non-tender, with normal bowel sounds. No distension or tympany. No guarding or rebound. No evidence of tenderness throughout. Back: No spinal tenderness. No costovertebral tenderness. Full range of motion. Skin: Warm, dry with normal turgor. Normal color with no rashes, no lesions, and no evidence of cellulitis. MS/ Extremity: Pulses equal, no cyanosis. Neurovascular intact. Full, normal range of motion. Neuro: Awake and alert, GCS 15, oriented to person, place, time, and situation. Cranial nerves II-XII grossly intact. Motor strength 5/5 in all extremities. Sensory grossly intact. Cerebellar exam normal. Normal gait. 00:21 Constitutional: The patient appears in no acute distress, alert, awake. 00:21 Respiratory: the patient does not display signs of respiratory distress, Respirations: normal, symetrical, no use of accessory muscles, Breath sounds: wheezing: that is mild, is scattered. 00:21 ECG was reviewed by the Attending Physician. Vital Signs: 01/31 21:52 BP 177 / 103; Pulse 88; Resp 20; Temp 98.3(O); Pulse Ox 100% on R/A; Pain 0/10; ed1 22:32 BP 145 / 76; Pulse 94; Resp 26; Pulse Ox 98% on R/A; Pain 0/10; ed1 23:18 BP 116 / 100; Pulse 79; Resp 17; Pulse Ox 88% on R/A; Pain 0/10; ed1 23:32 BP 122 / 64; Pulse 80; Resp 20; Pulse Ox 92% on 2 lpm NC; ed1 0313 00:14 BP 119 / 71; Pulse 77; Resp 18; Pulse Ox 94% on 2 lpm NC; Pain 0/10; ed1 01:17 BP 109 / 67; Pulse 59; Resp 18; Pulse Ox 92% on 2 lpm NC; Pain 0/10; ed1 05:42 BP 166 / 94; Pulse 98; Resp 17; Pulse Ox 97% on 2 lpm NC; ed1 06:53 BP 142 / 75; Pulse 76; Resp 20; Pulse Ox 94% on 2 lpm NC; ed1 07:45 BP 138 / 78; Pulse 74; Resp 15; Pulse Ox 96% on R/A; Pain 0/10; hb 10:00 BP 136 / 76; Pulse 70; Resp 16; Pulse Ox 100% on R/A; hb 12:00 BP 130 / 70; Pulse 74; Resp 15; Pulse Ox 100% ; Pain 0/10; hb 14:00 BP 128 / 68; Pulse 70; Resp 16; Pulse Ox 100% on R/A; Pain 0/10; hb 03/12 23:18 O2 applied at 2L NC ed1 MDM: 21:56 Patient medically screened. 02/01 06:43 Differential Diagnosis: Bronchitis Viral Syndrome Pneumonia Other cad. Data reviewed: vital signs, nurses notes, lab test result(s), EKG, radiologic studies. Response to treatment: the patient's symptoms have markedly improved after treatment, the patient's condition has returned to base line, and as a result, I will discharge patient. ED course: pt had sz after discharge returned to room small lac left side of tongue, will observe. 01/31 22:01 Order name: Basic Metabolic Panel; Complete Time: 23:48 01/31 22:01 Order name: CBC with Diff; Complete Time: 23:48 01/31 22:01 Order name: NT PRO-BNP; Complete Time: 23:48 01/31 22:01 Order name: PT-INR; Complete Time: 23:48 01/31 22:01 Order name: Troponin (emerg Dept Use Only); Complete Time: 23:48 02/01 00:00 Order name: Troponin (emerg Dept Use Only); Complete Time: 01:18 01/31 22:01 Order name: XRAY Chest (1 view) 01/31 22:01 Order name: EKG; Complete Time: 22:05 02/01 06:18 Order name: CT Head Brain wo Cont 01/31 22:01 Order name: Cardiac monitoring; Complete Time: 22:06 01/31 22:01 Order name: EKG - Nurse/Tech; Complete Time: 22:25 01/31 22:01 Order name: IV Saline Lock; Complete Time: 22:32 01/31 22:01 Order name: Labs collected and sent; Complete Time: 22:32 01/31 22:01 Order name: O2 Per Protocol; Complete Time: 22:06 01/31 22:01 Order name: O2 Sat Monitoring; Complete Time: 22:06 02/01 07:41 Order name: Diet Heart Healthy; Complete Time: 07:42 [facility] 02/01 07:41 Order name: Seizure Precautions; Complete Time: 07:46 [facility] 02/01 13:29 Order name: Diet Regular; Complete Time: 13:30 hb EC:21 Rate is 69 beats/min. Rhythm is regular. RI interval is normal. QRS interval is normal. gs No Q waves. T waves are Normal. No ST changes noted. Clinical impression: Normal ECG. Interpreted by me. Administered Medications: 01/31 22:23 Drug: Albuterol 2.5 mg Route: Inhalation; tl2 23:00 Follow up: Response: No adverse reaction; No change in condition ed1 22:23 Drug: AtroVENT Aerosol 0.5 mg Route: Inhalation; tl2 23:00 Follow up: Response: No adverse reaction; Marked relief of symptoms ed1 02/01 06:01 Drug: Ativan 2 mg Route: IVP; Site: left forearm; ed1 07:00 Follow up: Response: No adverse reaction hb 08:08 Drug: Potassium Effervescent Tablet 50 mEq Route: PO; hb 08:40 Follow up: Response: No adverse reaction hb 08:08 Drug: Thiamine 100 mg Route: IV; Rate: bolus; Site: left forearm; hb 08:40 Follow up: Response: No adverse reaction; IV Status: Completed infusion hb Disposition: 02/01/19 08:26 Discharged to Home. Impression: Acute bronchitis, Epilepsy and recurrent seizures, Abuse of non-psychoactive substances, Alcohol abuse. - Condition is Stable. - Discharge Instructions: Alcohol Intoxication, Alcohol Abuse and Nutrition, Acute Bronchitis, Adult, Seizure, Adult. - Prescriptions for Albuterol Sulfate 90 mcg/actuation - inhale 1-2 puff by INHALATION route every 4-6 hours; 1 Inhaler. - Medication Reconciliation Form, Thank You Letter, Antibiotic Education, Prescription Opioid Use form. - Follow up: Private Physician; When: 2 - 3 days; Reason: Re-evaluation by your physician. Signatures: Dispatcher [employer] EDMS [place] MD MD cha Riggs, Erika RN RN ed1 Shaunna Adam, RACHEL RN Toya Pham, RN RN tl2 Jamar Thrasher MD MD gs Corrections: (The following items were deleted from the chart) 05:26 01:19 02/01/2019 01:19 Discharged to Home. Impression: Acute bronchitis. Condition is ed1 Stable. Forms are Medication Reconciliation Form, Thank You Letter, Antibiotic Education, Prescription Opioid Use. Follow up: Private Physician; When: 2 - 3 days; Reason: Re-evaluation by your physician. 06:48 05:02/01/2019 01:19 Discharged to Home. Impression: Acute bronchitis. Condition is gs Stable. Discharge Instructions: Acute Bronchitis, Adult. Forms are Medication Reconciliation Form, Thank You Letter, Antibiotic Education, Prescription Opioid Use. Follow up: Private Physician; When: 2 - 3 days; Reason: Re-evaluation by your physician. ed1 14:57 08:26 02/01/2019 08:26 Discharged to Home. Impression: Acute bronchitis; Epilepsy and hb recurrent seizures; Abuse of non-psychoactive substances; Alcohol abuse. Condition is Stable. Discharge Instructions: Acute Bronchitis, Adult, Seizure, Adult, Alcohol Intoxication, Alcohol Abuse and Nutrition. Prescriptions for Albuterol Sulfate 90 mcg/actuation - inhale 1-2 puff by INHALATION route every 4-6 hours; 1 Inhaler. and Forms are Medication Reconciliation Form, Thank You Letter, Antibiotic Education, Prescription Opioid Use. Follow up: Private Physician; When: 2 - 3 days; Reason: Re-evaluation by your physician. umer
[2019-02-01 05:32] VITALS: TEMP 98.3
[2019-02-01] MEDS ORDERED: LORazepam 2 MG/ML VIAL ONE (06:04)
--- NOTE | 2019-02-01 08:09 | RAD REPORT ---
EXAM DESCRIPTION: RAD - Chest Single View - 01/31/2019 10:26 pm CLINICAL HISTORY: COPD Chest pain. COMPARISON: Chest Single View dated 12/20/2018; Chest Single View dated 03/04/2017; Chest Single View dated 01/29/2017; Chest Single View dated 01/28/2017 FINDINGS: Portable technique limits examination quality. The lungs are emphysematous but grossly clear. The heart is normal in size. No displaced fractures. IMPRESSION: No acute intrathoracic process suspected. COPD.
[2019-02-01] MEDS ORDERED: POTASSIUM 25 MEQ EFFERV TAB ONE (08:12)
[2019-02-01] MEDS ORDERED: FOLIC ACID 5 MG/ML VIAL ONE (08:12)
--- NOTE | 2019-02-01 08:17 | RAD REPORT ---
EXAM DESCRIPTION: CT - Head Brain Wo Cont - 02/01/2019 7:00 am CLINICAL HISTORY: SEIZURE Headache, drowsiness, seizure COMPARISON: Head Brain Wo Cont dated 09/10/2017; Head Brain Wo Cont dated 01/28/2017 TECHNIQUE: All CT scans are performed using dose optimization technique as appropriate and may inclu de automated exposure control or mA/KV adjustment according to patient size. FINDINGS: No intracranial hemorrhage, hydrocephalus or extra-axial fluid collection.No areas of brai n edema or evidence of midline shift. The paranasal sinuses and mastoids are clear. The calvarium is intact. IMPRESSION: No acute intracranial abnormality.
[2019-02-01 15:16] VITALS: O2SAT 100
[2019-02-01 15:17] VITALS: BP 130/70
--- NOTE | 2019-02-02 10:29 | EKG ---
Test Date: 2019-01-31 Test Time: 22:09:48 Percussion Instructor: ADAMS MEASUREMENT RESULTS: Intervals: Rate: 69 KS: 156 QRSD: 86 QT: 380 QTc: 407 [place]: P: 66 KS: 156 QRS: 75 T: 66 INTERPRETIVE STATEMENTS: Normal sinus rhythm with sinus arrhythmia Normal ECG Compared to ECG 12/20/2018 22:15:15 No significant changes Electronically Signed On 02-01-19 08:09:03 CDT by Nehemiah Skaggs
== END 2019-02-01 14:57 | disposition home or self-care (01) ==
LOC: ER 21:49
DX: J20.9 Acute bronchitis, unspecified (principal); F10.10 Alcohol abuse, uncomplicated; F55.8 Abuse of other non-psychoactive substances; G40.909 Epilepsy, unspecified, not intractable, without status epilepticus
CPT/HCPCS: 36415; 70450; 71045; 80048; 83880; 84484; 85025; 85610; 93005; 96365; 96375; 99285

== ENCOUNTER 2019-02-22 17:54 | Emergency (ER) | payer OTHER ==
[2019-02-22 18:32] LABS: Absolute Lymphocytes (CBC) 2.4 K/uL (0.7-4.9); Absolute Monocytes 0.4 K/uL (0.1-1.3); Absolute Neutrophil 2.2 K/uL (1.8-8.0); Basophils % 1.3 % (0-1.3); Eosinophils % 1.4 % (0-4.4); Hematocrit 44.2 % (39.6-49.0); Lymphocytes % 46.6 % (15.3-44.8); Monocytes % 7.1 % (3.3-12.3)
[2019-02-22 18:40] LABS: Urine Blood TRACE (NEG); Urine Glucose 2+ (NEG); Urine Protein NEGATIVE (NEG); Urine Specific Gravity <1.005 (1.005-1.030)
[2019-02-22 18:49] LABS: Barbiturates NEGATIVE (NEGATIVE); Benzodiazepines NEGATIVE (NEGATIVE); Cocaine NEGATIVE (NEGATIVE); METHAMPHETAM NEGATIVE (NEGATIVE); Methadone NEGATIVE (NEGATIVE); Opiates NEGATIVE (NEGATIVE); Phencyclidine NEGATIVE (NEGATIVE); THC Cannibis POSITIVE (NEGATIVE)
[2019-02-22 19:09] LABS: ALT/SGPT 18 U/L (12-78); AST/SGOT 14 U/L (15-37); Albumin 3.4 g/dL (3.4-5.0); Alkaline Phosphatase 122 U/L (45-117); BUN Blood Urea Nitrogen 5 mg/dL (7-18); Bicarbonate 25 mmol/L (21-32); Bilirubin Direct < 0.1 mg/dL (0-0.2); Bilirubin Total 0.3 mg/dL (0.2-1.0); Glucose Level 213 mg/dL (74-106); Potassium 3.4 mmol/L (3.5-5.1); Protein, Total 7.3 g/dL (6.4-8.2); Sodium Level 139 mmol/L (136-145)
[2019-02-22 20:13] LABS: Protime INR 0.96
[2019-02-22 20:35] LABS: Blood Morphology Comment NOT SEEN (NOT SEEN); Platelet Estimate ADEQ; Urine White Blood Cell Casts OK
[2019-02-22] MEDS ORDERED: NA CHLORIDE 0.9% 500 ML ONE (22:54)
--- NOTE | 2019-02-23 01:39 | ER ---
Nurse's Notes [facility] Name: Prakash Bailey Age: 68 yrs Sex: Male : 1950 Arrival Date: 02/22/2019 Time: 17:54 Bed 15 Private MD: Diagnosis: Suicidal Ideation;Depression Presentation: 02/22 17:55 Presenting complaint: EMS states: neighbors called Sean for this pt seen having hj hallucinations, per pt, pt is seeing demons, admitted to have used meth drugs; per EMS, no active plan, but wants to end the hallucinations; A\\T\\O x3; BP- 169/93; HR- 118; RR- 18; O2 sat- 95%; BGL- 120; on triage, pt states "i drank beer yesterday, i bought 18 packs, i dont do drugs anymore, its been 3 months since i used meth, but im okay now, if i see demons again i will tell you, but at one pint im planning to use a knife to kill myself but not now";. Transition of care: patient was not received from another setting of care. Onset of symptoms was February 22, 2019. Risk Assessment: Do you want to hurt yourself or someone else? Patient reports no desire to harm self or others. Initial Sepsis Screen: Does the patient meet any 2 criteria? No. Patient's initial sepsis screen is negative. Does the patient have a suspected source of infection? No. Patient's initial sepsis screen is negative. Care prior to arrival: None. 17:55 Method Of Arrival: EMS: [facility] 17:55 Acuity: BILL 2 hj Triage Assessment: 17:58 General: Appears in no apparent distress. uncomfortable, Behavior is anxious. Pain: hj Denies pain. Historical: - Allergies: 17:58 Aspirin; hj - Home Meds: 17:58 Unable to obtain [Active]; hj - PMHx: 17:58 Diabetes - IDDM; Hypertension; Substance Abuse; hj - PSHx: 17:58 Unable to obtain; hj - Immunization history:: Adult Immunizations unknown. - Social history:: Smoking status: Patient uses tobacco products, Patient uses alcohol, street drugs, Methamphetamine (Meth). - Ebola Screening: : Patient negative for fever greater than or equal to 101.5 degrees Fahrenheit, and additional compatible Ebola Virus Disease symptoms Patient denies exposure to infectious person Patient denies travel to an Ebola-affected area in the 21 days before illness onset. Screenin:59 Abuse screen: Denies threats or abuse. Denies injuries from another. Nutritional hj screening: No deficits noted. Tuberculosis screening: No symptoms or risk factors identified. Fall Risk None identified. Assessment: 18:09 General: Appears uncomfortable, unkempt, Behavior is calm, cooperative, appropriate for hj age. Pain: Denies pain. Neuro: Level of Consciousness is awake, alert, obeys commands, Oriented to person, place, time, situation, Appropriate for age. Cardiovascular: Capillary refill < 3 seconds Patient's skin is warm and dry. Respiratory: Airway is patent Respiratory effort is even, unlabored, Respiratory pattern is regular, symmetrical. GI: No signs and/or symptoms were reported involving the gastrointestinal system. : No signs and/or symptoms were reported regarding the genitourinary system. EENT: No signs and/or symptoms were reported regarding the EENT system. Derm: No signs and/or symptoms reported regarding the dermatologic system. Musculoskeletal: No signs and/or symptoms reported regarding the musculoskeletal system. 19:00 General: Appears in no apparent distress. comfortable, Behavior is calm, cooperative. rr5 Pain: Denies pain. Neuro: Level of Consciousness is awake, alert, obeys commands, Oriented to person. Cardiovascular: Capillary refill < 3 seconds Patient's skin is warm and dry. Respiratory: Airway is patent Respiratory effort is even, unlabored, Respiratory pattern is regular, symmetrical. GI: No signs and/or symptoms were reported involving the gastrointestinal system. : No signs and/or symptoms were reported regarding the genitourinary system. EENT: No signs and/or symptoms were reported regarding the EENT system. Derm: No signs and/or symptoms reported regarding the dermatologic system. Musculoskeletal: Capillary refill < 3 seconds, Range of motion: intact in all extremities. 19:00 Reassessment: awaiting for [facility] evaluation. rr5 20:30 Reassessment: Patient appears in no apparent distress at this time. juice and water rr5 given as per patient request. 22:28 Reassessment: Patient appears in no apparent distress at this time. asleep comfortably rr5 on bed. 02/23 00:00 Reassessment: Patient appears in no apparent distress at this time. No changes from rr5 previously documented assessment. Patient is alert, oriented x 3, equal unlabored respirations, skin warm/dry/pink. 00:50 Reassessment: Patient appears in no apparent distress at this time. No changes from rr5 previously documented assessment. Patient is alert, oriented x 3, equal unlabored respirations, skin warm/dry/pink. [facility] staff came and assess the patient. 01:14 Reassessment: valuables given to security. rr5 01:30 Reassessment: Patient appears in no apparent distress at this time. behavioral [facility] rr5 Mohini gave nurse to nurse endorsement. 01:40 Reassessment: [facility], gave the nurse to nurse endorsement. rr5 01:45 Reassessment: [facility] accepted the case. rr5 02:30 Reassessment: Patient appears in no apparent distress at this time. awaiting for EMS rr5 transport. 03:10 Reassessment: [facility] arrived and endorsed the patient. vitally stable, rr5 cooperative calm. 03:10 Reassessment: valuables endorsed to EMS [facility]. rr5 Psych: 02/22 17:59 Subjective: Patient's mood is sad, Delusions are denied, Hallucinations are visual, hj Having thoughts of suicide. Objective: Patient is cooperative, Speech is normal, Affect is appropriate. Interventions: Removed personal items and placed in bag. Patient placed in hospital gown. Searched person for dangerous items. Belonging list filled out. Restraints: Patient placed in soft restraints as ordered by physician. Patient's physical safety, cardiac and respiratory status will continue to be monitored while in restraints. Suicide Risk Assessment: Sad Person Scale: Sex of patient: Male: Score 1 point. Age of patient: Score 1 point if patient is over 65. Depression: Score 1 point if signs of depression are present. Previous Attempt: Score 1 point if patient has previously attempted suicide. Substance Abuse: Score 1 point if patient abuses alcohol or drugs. Rational Thinking: Score 1 point if patient is lacking rational thinking. Social Support: Score 1 point if social support is lacking and/or unavailable. Organized Plan: Score 0 if patient did not have an organized plan in place. Relationship: Chronic Sickness: Score 1 point if patient has illness, chronic, debilitating, or severe. Safety Checks: Personal items have been removed. Door is open. No visitors are present at this time. Patient uses methamphetamines. 17:59 Commitment: Patient will be a voluntary commitment. hj Vital Signs: 18:01 BP 122 / 81; Pulse 113; Resp 18; Temp 98.1(O); Pulse Ox 100% on R/A; Weight 72.57 kg; hj Height 5 ft. 9 in. (175.26 cm); Pain 0/10; 02/23 00:00 BP 120 / 85; Pulse 102; Resp 16; Temp 98.3; Pulse Ox 100% ; rr5 01:35 BP 115 / 92; Pulse 80; Resp 16; Temp 98.4(T); Pulse Ox 99% on R/A; ag4 03:00 BP 118 / 75; Pulse 81; Resp 17; Pulse Ox 99% ; rr5 0403 18:01 Body Mass Index 23.63 (72.57 kg, 175.26 cm) ED Course: 02/22 17:54 Patient arrived in ED. hj 17:55 Safety checks: Items removed: yes. Door open/sign placed on door: yes. Family/friend mh5 present: no. Sitter present: Yes. 17:57 Becca Vega FNP-C is [facility] snw 17:57 Richi Vazquez MD is Attending Physician. snw 17:57 Triage completed. hj 17:59 Arm band placed on right wrist. hj 18:02 EKG done, by quality lab technician. reviewed by Becca GIRALDO. sm3 18:09 Patient has correct armband on for positive identification. Placed in gown. Bed in low hj position. Call light in reach. Side rails up X 1. 18:10 Calin Chung, RACHEL is Primary Nurse. hj 18:15 Safety checks: Items removed: yes. Door open/sign placed on door: yes. Family/friend mh5 present: no. Sitter present: Yes. 18:30 Safety checks: Items removed: yes. Door open/sign placed on door: yes. Family/friend mh5 present: no. Sitter present: Yes. 18:30 Inserted saline lock: 22 gauge in right hand, using aseptic technique. hj 18:34 Initial lab(s) drawn, by me, sent to lab. Urine collected: clean catch specimen, cloudy.[facility] 18:39 Acetaminophen Sent. [facility] 18:39 Basic Metabolic Panel Sent. [facility] 18:39 CBC with Diff Sent. [facility] 18:39 ETOH Level Sent. [facility] 18:39 Hepatic Function Sent. [facility] 18:39 PT-INR Sent. [facility] 18:40 Patient has correct armband on for positive identification. Side rails up X2. Warm [facility] blanket given. Diet: Patient given a regular meal tray. 18:40 Ptt, Activated Sent. [facility] 18:40 Salicylate Sent. [facility] 18:40 Urine Drug Screen Sent. [facility] 18:40 Urine Dipstick--Ancillary (enter results) Sent. [facility] 18:45 Safety checks: Items removed: yes. Door open/sign placed on door: yes. Family/friend mh5 present: no. Sitter present: Yes. 19:00 Safety Checks: Personal items have been removed. The door is open or patient has been rr5 placed in a hallway bed/chair. Sitter present at this time. 19:02 Safety checks: Items removed: yes. Door open/sign placed on door: yes. Family/friend mh5 present: no. Sitter present: Yes. 19:15 Safety Checks: Personal items have been removed. The door is open or patient has been rr5 placed in a hallway bed/chair. Sitter present at this time. 19:15 Safety checks: Items removed: yes. Door open/sign placed on door: Patient placed in ag4 hallway bed. yes. Family/friend present: no. Sitter present: Yes. 19:30 Safety Checks: Personal items have been removed. The door is open or patient has been rr5 placed in a hallway bed/chair. Sitter present at this time. 19:30 Safety checks: Items removed: yes. Door open/sign placed on door: Patient placed in ag4 hallway bed. yes. Family/friend present: no. Sitter present: Yes. 19:45 Safety Checks: Personal items have been removed. The door is open or patient has been rr5 placed in a hallway bed/chair. Sitter present at this time. 19:45 Safety checks: Items removed: yes. Door open/sign placed on door: Patient placed in ag4 hallway bed. Family/friend present: no. Sitter present: Yes. 20:00 Safety Checks: Personal items have been removed. The door is open or patient has been rr5 placed in a hallway bed/chair. Sitter present at this time. 20:00 Safety checks: Items removed: yes. Door open/sign placed on door: yes. Family/friend ag4 present: no. Sitter present: Yes. 20:15 Safety Checks: Personal items have been removed. The door is open or patient has been rr5 placed in a hallway bed/chair. Sitter present at this time. 20:15 Safety checks: Items removed: yes. Door open/sign placed on door: Patient placed in ag4 hallway bed. yes. Family/friend present: no. Sitter present: Yes. 20:30 Safety Checks: Personal items have been removed. The door is open or patient has been rr5 placed in a hallway bed/chair. Sitter present at this time. 20:30 Safety checks: Items removed: yes. Door open/sign placed on door: yes. Family/friend ag4 present: no. Sitter present: Yes. 20:45 Safety Checks: Personal items have been removed. The door is open or patient has been rr5 placed in a hallway bed/chair. Sitter present at this time. 20:45 Safety checks: Items removed: yes. Door open/sign placed on door: Patient placed in ag4 hallway bed. yes. Family/friend present: no. Sitter present: Yes. 21:00 Safety Checks: Personal items have been removed. The door is open or patient has been rr5 placed in a hallway bed/chair. Sitter present at this time. 21:00 Safety checks: Items removed: yes. Safety checks: Door open/sign placed on door: ag4 Patient placed in hallway bed. Family/friend present: no. Sitter present: Yes. 21:15 Safety Checks: Personal items have been removed. The door is open or patient has been rr5 placed in a hallway bed/chair. Sitter present at this time. 21:15 Safety checks: Items removed: yes. Door open/sign placed on door: Patient placed in ag4 hallway bed. yes. Family/friend present: no. Sitter present: Yes. 21:30 Safety Checks: Personal items have been removed. The door is open or patient has been rr5 placed in a hallway bed/chair. Sitter present at this time. 21:30 Safety checks: Items removed: yes. Door open/sign placed on door: Patient placed in ag4 hallway bed. yes. Family/friend present: no. Sitter present: Yes. 21:45 Safety Checks: Personal items have been removed. The door is open or patient has been rr5 placed in a hallway bed/chair. Sitter present at this time. 21:45 Safety checks: Items removed: yes. Door open/sign placed on door: Patient placed in ag4 hallway bed. yes. Family/friend present: no. Sitter present: Yes. 22:00 Safety checks: Items removed: yes. Door open/sign placed on door: Patient placed in ag4 hallway bed. yes. Family/friend present: no. Sitter present: Yes. 22:15 Safety checks: Items removed: yes. Door open/sign placed on door: Patient placed in ag4 hallway bed. yes. Family/friend present: no. Sitter present: Yes. 22:30 Safety checks: Items removed: yes. Door open/sign placed on door: Patient placed in ag4 hallway bed. yes. Family/friend present: no. Sitter present: Yes. 22:33 Becca Vega FNP-C is [facility]. snw 22:33 Attending Physician role handed off by Richi Vazquez MD sn 22:33 Mor Larson MD is Attending Physician. snw 22:45 Safety checks: Items removed: yes. Door open/sign placed on door: Patient placed in ag4 hallway bed. yes. Family/friend present: no. Sitter present: Yes. 23:00 Safety checks: Items removed: yes. Door open/sign placed on door: Patient placed in ag4 hallway bed. Family/friend present: no. Sitter present: Yes. 23:15 Safety checks: Items removed: yes. Door open/sign placed on door: Patient placed in ag4 hallway bed. yes. Family/friend present: no. Sitter present: Yes. 23:30 Safety checks: Items removed: yes. Door open/sign placed on door: Patient placed in ag4 hallway bed. yes. Family/friend present: no. Sitter present: Yes. 23:45 Safety checks: Items removed: yes. Door open/sign placed on door: Patient placed in ag4 hallway bed. yes. Family/friend present: no. Sitter present: Yes. 02/23 03:16 No provider procedures requiring assistance completed. IV discontinued, intact, rr5 bleeding controlled, No redness/swelling at site. Pressure dressing applied. Administered Medications: 02/22 23:09 Drug: NS 0.9% 500 ml Route: IV; Rate: bolus; Site: right hand; rr5 02/23 00:10 Follow up: Response: No adverse reaction; IV Status: Completed infusion; IV Intake: rr5 500ml Intake: 00:10 IV: 500ml; Total: 500ml. rr5 Outcome: 01:39 ER care complete, transfer ordered by MD. seth 03:16 Transferred by ground EMS to other acute care facility: [facility]. rr5 Transfer form completed. 03:16 Condition: stable 03:16 Instructed on the need for transfer. 03:17 Patient left the ED. rr5 Signatures: Becca Vega, LICENSED INSURANCE AGENT-C LICENSED INSURANCE AGENT-Csnw Calin Chung RN RN Dee Hdez 5 Mor Larson MD MD wa Montes, Shakira 3 Maximiliano Thorne RN RN rr5 Dequan Ferris ag4 Corrections: (The following items were deleted from the chart) 02/22 18:09 17:55 Presenting complaint: EMS states: neighbors called [facility] for this pt seen hj having hallucinations, per pt, pt is seeing demons, admitted to have used meth drugs; per EMS, no active plan, but wants to end the hallucinations; A\\T\\O x3; BP- 169/93; HR- 118; RR- 18; O2 sat- 95%; BGL- 120; hj 21:38 21:37 Safety checks: Items removed: yes. Door open/sign placed on door: Patient placed ag4 in hallway bed. yes. Family/friend present: no. Sitter present: Yes. ag4
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
[2019-02-23 04:18] VITALS: TEMP 98.4; O2SAT 99
[2019-02-23 04:19] VITALS: BP 118/75
== END 2019-02-23 03:17 ==
LOC: ER 17:54
DX: F32.9 Major depressive disorder, single episode, unspecified (principal); I10 Essential (primary) hypertension; Z72.0 Tobacco use; Z88.6 Allergy status to analgesic agent
CPT/HCPCS: 36415; 80048; 80076; 80307; 80320; 80329; 81003; 85025; 85610; 85730; 93005; 96360; 99285

== ENCOUNTER 2019-03-17 15:34 | Emergency (ER) | payer OTHER ==
--- NOTE | 2019-03-17 16:23 | EDPHYS ---
Physician Documentation [facility] Name: Prakash Bailey Age: 68 yrs Sex: Male : 1950 Arrival Date: 03/17/2019 Time: 15:40 Bed 17 Private MD: ED Physician Carolyn Bowen HPI: 03/17 16:10 This 68 yrs old Male presents to ER via Law Enforcement with complaints of ma2 Psych Problem. 16:10 The patient presents to the emergency department with anxiety, psychosis. Onset: The ma2 symptoms/episode began/occurred gradually, 2 week(s) ago. Associated signs and symptoms: Pertinent negatives: delusions. Severity of symptoms: At their worst the symptoms were mild in the emergency department the symptoms are unchanged. The patient has not experienced similar symptoms in the past. Historical: - Allergies: 16:07 Aspirin; aj - PMHx: 16:07 Diabetes - IDDM; Hypertension; Substance Abuse; aj - PSHx: 16:07 Knee surgery; aj - Immunization history:: Adult Immunizations. - Social history:: Smoking status: Patient/guardian denies using tobacco, Patient uses alcohol, Patient/guardian denies using alcohol, street drugs, The patient lives with family. - Ebola Screening: : Patient negative for fever greater than or equal to 101.5 degrees Fahrenheit, and additional compatible Ebola Virus Disease symptoms Patient denies exposure to infectious person Patient denies travel to an Ebola-affected area in the 21 days before illness onset No symptoms or risks identified at this time. - Family history:: not pertinent. ROS: 16:10 Constitutional: Negative for fever, chills, and weight loss. ma2 16:10 Psych: Positive for auditory hallucinations, visual hallucinations, Negative for alcohol dependence, suicidal ideation. 16:10 All other systems are negative. Exam: 16:10 Constitutional: This is a well developed, well nourished patient who is awake, alert, ma2 and in no acute distress. Chest/axilla: Normal chest wall appearance and motion. Nontender with no deformity. No lesions are appreciated. Cardiovascular: Regular rate and rhythm with a normal S1 and S2. No gallops, murmurs, or rubs. Normal PMI, no JVD. No pulse deficits. Respiratory: Lungs have equal breath sounds bilaterally, clear to auscultation and percussion. No rales, rhonchi or wheezes noted. No increased work of breathing, no retractions or nasal flaring. Abdomen/GI: Soft, non-tender, with normal bowel sounds. No distension or tympany. No guarding or rebound. No evidence of tenderness throughout. 16:10 Psych: Behavior/mood is cooperative, anxious, Affect is calm, Patient has no thoughts/intents to harm self or others. Delusions/hallucinations are present and described as he state no AVD now however he sees shadows sometimes . Vital Signs: 15:44 BP 145 / 83; Pulse 90; Resp 18; Temp 98.0(O); Pulse Ox 98% on R/A; Weight 92.53 kg; aj Height 5 ft. 7 in. (170.18 cm); 15:44 Body Mass Index 31.95 (92.53 kg, 170.18 cm) aj MDM: 15:53 Patient medically screened. ma2 16:10 Differential diagnosis: drug withdrawal. depression, psychosis secondary to ma2 non-compliance. 16:21 Data reviewed: vital signs, nurses notes. Counseling: I had a detailed discussion with ma2 the patient and/or guardian regarding: the historical points, exam findings, and any diagnostic results supporting the discharge/admit diagnosis, the presence of at least one elevated blood pressure reading (>120/80) during this emergency department visit, the need for outpatient follow up. ED course: patient has no si now, no plan, no suicidal attempt in past,. 03/17 16:12 Order name: Blood Sugar; Complete Time: 16:25 [facility] Administered Medications: 17:04 Drug: ZyPREXA 20 mg Route: PO; em 17:04 Follow up: Response: Medication administered at discharge. em Disposition: 03/17/19 16:22 Discharged to Home. Impression: Delusional disorders. - Condition is Stable. - Prescriptions for Tylenol- Codeine #3 300-30 mg Oral Tablet - take 2 tablet by ORAL route every 6 hours As needed; 6 tablet. Zyprexa 10 mg Oral Tablet - take 1 tablet by ORAL route once daily; 20 tablet. Metformin 500 mg Oral Tablet - take 1 tablet by ORAL route once daily for 7 days Then take 1 tablet with morning meals AND evening meals; 21 tablet. - Medication Reconciliation Form, Thank You Letter, Antibiotic Education, Prescription Opioid Use form. - Follow up: Private Physician; When: Tomorrow; Reason: Continuance of care. Signatures: Afshan Salvador RN Erik Stein, SUNDAY BANERJEEN Carolyn Marti MD MD ma2 Corrections: (The following items were deleted from the chart) 17:06 16:22 03/17/2019 16:22 Discharged to Home. Impression: Delusional disorders. Condition em is Stable. Forms are Medication Reconciliation Form, Thank You Letter, Antibiotic Education, Prescription Opioid Use. Follow up: Private Physician; When: Tomorrow; Reason: Continuance of care. ma2
--- NOTE | 2019-03-17 16:23 | ER ---
Nurse's Notes [facility] Name: Prakash Bailey Age: 68 yrs Sex: Male : 1950 Arrival Date: 03/17/2019 Time: 15:40 Bed 17 Private MD: Diagnosis: Delusional disorders Presentation: 03/17 15:41 Presenting complaint: Patient states: "I have been seeing shadows that I know are not aj there since I got out of the [facility] 2 months ago. I couldn't afford to get my medications filled. My knees are hurting because I don't want to stay in my house with the shadows so I walk around. I don't think I should be here anymore.". Transition of care: patient was not received from another setting of care. Onset of symptoms was December 2018. Risk Assessment: Do you want to hurt yourself or someone else? Patient reports no desire to harm self or others. Initial Sepsis Screen: Does the patient meet any 2 criteria? No. Patient's initial sepsis screen is negative. Does the patient have a suspected source of infection? No. Patient's initial sepsis screen is negative. Care prior to arrival: None. 15:41 Method Of Arrival: Law Enforcement: Ender saab 15:41 Acuity: BILL 2 aj Triage Assessment: 15:48 General: Appears in no apparent distress. comfortable, Behavior is calm, cooperative, aj appropriate for age. Pain: Complains of pain in right knee and left knee. Neuro: Level of Consciousness is awake, alert, obeys commands, Oriented to person, place, time, situation, Appropriate for age. Respiratory: Airway is patent Respiratory effort is even, unlabored, Respiratory pattern is regular, symmetrical. Derm: Skin is intact, is healthy with good turgor, Skin is pink, warm \\T\\ dry. normal. Historical: - Allergies: 16:07 Aspirin; aj - PMHx: 16:07 Diabetes - IDDM; Hypertension; Substance Abuse; aj - PSHx: 16:07 Knee surgery; aj - Immunization history:: Adult Immunizations. - Social history:: Smoking status: Patient/guardian denies using tobacco, Patient uses alcohol, Patient/guardian denies using alcohol, street drugs, The patient lives with family. - Ebola Screening: : Patient negative for fever greater than or equal to 101.5 degrees Fahrenheit, and additional compatible Ebola Virus Disease symptoms Patient denies exposure to infectious person Patient denies travel to an Ebola-affected area in the 21 days before illness onset No symptoms or risks identified at this time. - Family history:: not pertinent. Screenin:10 Abuse screen: Denies threats or abuse. Nutritional screening: No deficits noted. em Tuberculosis screening: No symptoms or risk factors identified. Fall Risk None identified. Assessment: 16:10 General: Appears in no apparent distress. comfortable, Behavior is calm, cooperative, em reports visual hallucinations, denies SI/HI at this time, reports was unable to fill medication scripts due to not having any money. Pain: Complains of pain in right knee and left knee. Neuro: Level of Consciousness is awake, alert, obeys commands, Oriented to person, place, time, situation. Cardiovascular: Capillary refill < 3 seconds Patient's skin is warm and dry. Respiratory: Airway is patent Respiratory effort is even, unlabored, Respiratory pattern is regular, symmetrical. Derm: Skin is intact, is healthy with good turgor, Skin is pink, warm \\T\\ dry. Musculoskeletal: Capillary refill < 3 seconds, Range of motion: intact in all extremities. Psych: 15:50 Subjective: Patient's mood is sad, Delusions are denied, Hallucinations are visual, aj Having thoughts of suicide. Denies suicidal plan. Objective: Patient is cooperative, Speech is normal, Affect is blunted. Interventions: Removed personal items and placed in bag. Patient placed in hospital gown. Searched person for dangerous items. Suicide Risk Assessment: Sad Person Scale: Sex of patient: Male: Score 1 point. Age of patient: Score 1 point if patient is over 65. Depression: Score 1 point if signs of depression are present. Previous Attempt: Score 0 point if patient has not previously attempted suicide. Substance Abuse: Score 0 point if patient does not abuse alcohol or drugs. Rational Thinking: Score 0 point if patient has rational thinking. Social Support: Score 1 point if social support is lacking and/or unavailable. Organized Plan: Score 0 if patient did not have an organized plan in place. Relationship: Score 1 point if patient is , , , or for a single male Chronic Sickness: Score 1 point if patient has illness, chronic, debilitating, or severe. Pt denies substance abuse. Vital Signs: 15:44 BP 145 / 83; Pulse 90; Resp 18; Temp 98.0(O); Pulse Ox 98% on R/A; Weight 92.53 kg; aj Height 5 ft. 7 in. (170.18 cm); 15:44 Body Mass Index 31.95 (92.53 kg, 170.18 cm) ED Course: 15:40 Patient arrived in ED. aj 15:43 Triage completed. 15:44 Erik Rahman LVN is Primary Nurse. em 15:44 Arm band placed on right wrist. Patient placed in an exam room, on a stretcher. aj 15:44 Safety checks: Items removed: yes. Door open/sign placed on door: yes. Family/friend dh3 present: no. Sitter present: Yes. 15:45 Safety checks: Items removed: yes. Door open/sign placed on door: yes. Family/friend dh3 present: no. Sitter present: Yes. 15:53 Carolyn Bowen MD is Attending Physician. [facility] 16:00 Safety checks: Items removed: yes. Door open/sign placed on door: yes. Family/friend dh3 present: no. Sitter present: Yes. 16:15 Safety checks: Items removed: yes. Door open/sign placed on door: yes. Family/friend dh3 present: no. Sitter present: Yes. 16:30 Safety checks: Items removed: yes. Door open/sign placed on door: yes. Family/friend dh3 present: no. Sitter present: Yes. 17:05 No provider procedures requiring assistance completed. Patient did not have IV access em during this emergency room visit. Administered Medications: 17:04 Drug: ZyPREXA 20 mg Route: PO; em 17:04 Follow up: Response: Medication administered at discharge. em Outcome: 16:22 Discharge ordered by . [facility] 17:05 Discharged to home ambulatory. em 17:05 Condition: good 17:05 Discharge instructions given to patient, Instructed on discharge instructions, follow up and referral plans. medication usage, Demonstrated understanding of instructions, follow-up care, medications, Prescriptions given X 3. 17:06 Patient left the ED. em Signatures: Afshan Salvador RN RN Erik Rahman LVN LVN Georgiana Farmer [facility] Carolyn Bowen MD MD ma2 Corrections: (The following items were deleted from the chart) 15:49 15:44 BP 145 / 83; Pulse 90bpm; Resp 18bpm; Pulse Ox 98% RA; Temp 98.0F Oral; dh3 aj
[2019-03-17] MEDS ORDERED: OLANZapine 10 MG TABLET PO ONE (17:00)
[2019-03-17 17:46] VITALS: BP 145/83; TEMP 98; O2SAT 98
== END 2019-03-17 17:06 | disposition home or self-care (01) ==
LOC: ER 15:34
DX: F22 Delusional disorders (principal)
CPT/HCPCS: 82962; 99284

== ENCOUNTER 2019-03-26 20:36 | Emergency (ER) | payer OTHER ==
[2019-03-26] MEDS ORDERED: NA CHLORIDE 0.9% 1,000 ML ONE (20:59)
[2019-03-26] MEDS ORDERED: LORazepam 2 MG/ML VIAL ONE (20:59)
[2019-03-26 21:13] LABS: Absolute Lymphocytes (CBC) 3.2 K/uL (0.7-4.9); Absolute Monocytes 0.9 K/uL (0.1-1.3); Absolute Neutrophil 4.8 K/uL (1.8-8.0); Basophils % 0.8 % (0-1.3); Eosinophils % 4.2 % (0-4.4); Hematocrit 42.3 % (39.6-49.0); Lymphocytes % 34.3 % (15.3-44.8); MPV 8.3 fL (7.6-11.3); Monocytes % 9.3 % (3.3-12.3); RBC Red Blood Cell Count 4.53 M/uL (4.33-5.43)
[2019-03-26 21:17] LABS: Protime INR 0.89
[2019-03-26] MEDS ORDERED: ZIPRASIDONE MESYLA 20 MG/VIAL IM ONE (21:17)
[2019-03-26] MEDS ORDERED: WATER FOR INJ,STERILE 10 ML ONE (21:17)
[2019-03-26 21:19] LABS: Barbiturates NEGATIVE (NEGATIVE); Benzodiazepines NEGATIVE (NEGATIVE); Cocaine POSITIVE (NEGATIVE); METHAMPHETAM NEGATIVE (NEGATIVE); Methadone NEGATIVE (NEGATIVE); Opiates NEGATIVE (NEGATIVE); Phencyclidine NEGATIVE (NEGATIVE); THC Cannibis POSITIVE (NEGATIVE)
[2019-03-26 21:28] LABS: ALT/SGPT 16 U/L (12-78); AST/SGOT 18 U/L (15-37); Albumin 3.6 g/dL (3.4-5.0); Alkaline Phosphatase 164 U/L (45-117); BUN Blood Urea Nitrogen 8 mg/dL (7-18); Bicarbonate 25 mmol/L (21-32); Bilirubin Direct < 0.1 mg/dL (0-0.2); Bilirubin Total 0.2 mg/dL (0.2-1.0); Glucose Level 187 mg/dL (74-106); Potassium 3.8 mmol/L (3.5-5.1); Protein, Total 7.3 g/dL (6.4-8.2); Sodium Level 142 mmol/L (136-145)
[2019-03-26 21:47] LABS: Urine Blood NEGATIVE (NEG); Urine Glucose TRACE (NEG); Urine Protein NEGATIVE (NEG); Urine Specific Gravity <1.005 (1.005-1.030); Urine pH 5.5 (5.0-7.0)
--- NOTE | 2019-03-27 08:46 | EKG ---
Test Date: 2019-03-26 Test Time: 21:50:04 Water Inspector: GRETA MEASUREMENT RESULTS: Intervals: Rate: 103 IA: 198 QRSD: 88 QT: 348 QTc: 455 [place]: P: 75 IA: 198 QRS: 77 T: 61 INTERPRETIVE STATEMENTS: Sinus tachycardia Otherwise normal ECG Compared to ECG 02/22/2019 17:56:49 Atrial abnormality no longer present Electronically Signed On 03-27-19 08:46:21 CDT by Nehemiah Skaggs
[2019-03-27] MEDS ORDERED: IPRATROPIUM BROM 0.5MG/2.5ML ONE (09:32)
[2019-03-27] MEDS ORDERED: ALBUTEROL 2.5 MG/3 ML NEB SOL ONE (09:32)
[2019-03-27] MEDS ORDERED: METHYLPREDNISOLONE 125 MG INJ ONE (09:32)
--- NOTE | 2019-03-27 09:49 | EDPHYS ---
Physician Documentation [facility] Name: Prakash Bailey Age: 68 yrs Sex: Male : 1950 Arrival Date: 03/26/2019 Time: 20:39 Bed 7 Private MD: ED Physician James Park HPI: 03/27 00:48 This 68 yrs old Male presents to ER via EMS with complaints of AMS, suicidal rn ideation. 00:48 The patient presents with agitation. Onset: The symptoms/episode began/occurred at an rn unknown time. Possible causes: alcohol. Current symptoms: In the emergency department the patient's symptoms are unchanged from the initial presentation. The patient has experienced similar episodes in the past. Found rolling around agitated in [place], + ETOH, reported to police he wants to , denies overdose or attempt, + multiple similar presentations in the past. . Historical: - Allergies: 03/26 21:11 Aspirin; bb - PMHx: 21:11 Diabetes - IDDM; Hypertension; Substance Abuse; bb - PSHx: 21:11 Knee surgery; bb - Immunization history:: Adult Immunizations unknown. - Social history:: Smoking status: unknown Patient uses alcohol, patient/guardian reports recent binge of alcohol consumption. - Ebola Screening: : No symptoms or risks identified at this time. - Family history:: not pertinent. - Hospitalizations: : No recent hospitalization is reported. ROS: 03/27 00:48 Constitutional: Negative for fever, chills, and weight loss, Eyes: Negative for injury, rn pain, redness, and discharge, Neck: Negative for injury, pain, and swelling, Cardiovascular: Negative for chest pain, palpitations, and edema, Respiratory: Negative for shortness of breath, cough, wheezing, and pleuritic chest pain, Abdomen/GI: Negative for abdominal pain, nausea, vomiting, diarrhea, and constipation, MS/Extremity: Negative for injury and deformity, Skin: Negative for injury, rash, and discoloration, Neuro: Negative for headache, weakness, numbness, tingling, and seizure, Psych: + suicidal ideations, neg for homicidal ideation Exam: 00:48 Constitutional: Dissheveled patient, agitated and intoxicated Head/Face: rn Normocephalic, atraumatic. Eyes: Pupils equal round and reactive to light, extra-ocular motions intact. Lids and lashes normal. Conjunctiva and sclera are non-icteric and not injected. Cornea within normal limits. Periorbital areas with no swelling, redness, or edema. ENT: dry MM Neck: Trachea midline, no thyromegaly or masses palpated, and no cervical lymphadenopathy. Supple, full range of motion without nuchal rigidity, or vertebral point tenderness. No Meningismus. Cardiovascular: tachycardic, regular, no murmur Respiratory: Lungs have equal breath sounds bilaterally, clear to auscultation Abdomen/GI: soft, non-tender Skin: Warm, dry, no lacerations MS/ Extremity: Pulses equal, no cyanosis. Neurovascular intact. Full, normal range of motion. Equal circumference. Neuro: Awake and alert, GCS 15, moves all 4 extremities, + slurred speech and smells of ETOH. Vital Signs: 03/26 21:11 BP 120 / 95; Pulse 114; Resp 18 S; Pulse Ox 95% on R/A; bb 21:30 BP 113 / 66; Pulse 103; Resp 18 S; Pulse Ox 90% on R/A; jv1 21:58 Temp 97.8(A); bb 22:00 BP 111 / 74; Pulse 100; Resp 18 S; Temp 97.8; Pulse Ox 94% on 2 lpm NC; jv1 23:00 BP 126 / 73; Pulse 97; Resp 20 S; Temp 98(A); Pulse Ox 92% on 2 lpm NC; jv1 05/ 00:00 BP 128 / 82; Pulse 90; Resp 18 S; Temp 98; Pulse Ox 93% on 2 lpm NC; jv1 01:00 BP 129 / 80; Pulse 88; Resp 18; Temp 98; Pulse Ox 91% on R/A; jv1 02:00 BP 124 / 70; Pulse 90; Resp 18 S; Temp 97.9(A); Pulse Ox 93% on R/A; jv1 03:00 BP 125 / 75; Pulse 88; Resp 18 S; Temp 97.8; Pulse Ox 95% on R/A; jv1 04:00 BP 107 / 67; Pulse 84; Resp 18 S; Temp 98(A); Pulse Ox 93% on R/A; jv1 05:00 BP 110 / 70; Pulse 96; Resp 18; Temp 98(A); Pulse Ox 94% on R/A; jv1 06:00 BP 120 / 70; Pulse 94; Resp 18 S; Temp 98; Pulse Ox 93% on R/A; jv1 07:00 BP 123 / 79; Pulse 90; Resp 18; Temp 98.9; Pulse Ox 90% on R/A; jv1 07:20 BP 121 / 74; Pulse 90; Resp 20 S; Pulse Ox 92% on 2 lpm NC; aa5 08:01 BP 139 / 90; Pulse 91; Resp 21; Pulse Ox 96% on R/A; Pain 0/10; em1 09:02 BP 145 / 80; Pulse 92; Resp 22; Pulse Ox 94% on R/A; Pain 0/10; aa5 10:20 BP 158 / 79; Pulse 97; Resp 20 S; Temp 98.0(TE); Pulse Ox 94% on R/A; Pain 0/10; aa5 MDM: 03/26 20:39 Patient medically screened. rn 03/27 06:08 ED course: Attempted to wake patient and reassess, still intoxicated, not making sense. rn Will reassess. . 07:09 Transition of care: After a detail discussion of the patient's case, care is rn transferred to James Park MD. 07:19 Patient medically screened. [facility] 07:22 Data reviewed: vital signs, nurses notes, lab test result(s), EKG. [facility] 03/26 20:40 Order name: Acetaminophen rn 03/26 20:40 Order name: Basic Metabolic Panel rn 03/26 20:40 Order name: CBC with Diff 03/26 20:40 Order name: ETOH Level rn 03/26 20:40 Order name: Hepatic Function rn 03/26 20:40 Order name: PT-INR rn 03/26 20:40 Order name: Ptt, Activated rn 03/26 20:40 Order name: Salicylate rn 03/26 20:40 Order name: Urine Drug Screen 03/26 21:05 Order name: Urine Dipstick--Ancillary (enter results) [facility] 03/26 21:19 Order name: CBC with Automated Diff; Complete Time: 21:55 EDWI 03/26 21:19 Order name: Urine Drug Screen; Complete Time: 21:55 EDWI 03/26 21:20 Order name: Protime (+INR); Complete Time: 21:55 EDMS 03/26 21:20 Order name: PTT, Activated Partial Thromb; Complete Time: 21:55 EDMS 03/26 20:40 Order name: EKG; Complete Time: 20:42 rn 03/26 21:26 Order name: Alcohol Serum/Plasma; Complete Time: 21:55 EDMS 03/26 21:29 Order name: Basic Metabolic Panel; Complete Time: 21:55 EDMS 03/26 21:29 Order name: Liver (Hepatic) Function; Complete Time: 21:55 EDMS 03/26 21:29 Order name: Acetaminophen Level; Complete Time: 21:55 EDMS 03/26 21:38 Order name: Salicylates Level; Complete Time: 21:55 EDMS 03/26 21:47 Order name: Urine Dipstick-Ancillary; Complete Time: 21:55 EDMS 03/27 07:17 Order name: Diet Ada 1800 Jacob; Complete Time: 07:18 aa 03/27 08:51 Order name: Chest Single View XRAY [facility] 03/26 20:40 Order name: EKG - Nurse/Tech; Complete Time: 22:11 rn 03/26 20:40 Order name: IV Saline Lock; Complete Time: 21:16 rn 03/26 20:40 Order name: Labs collected and sent; Complete Time: 21:16 rn 03/26 20:40 Order name: Urine Dipstick-Ancillary (obtain specimen); Complete Time: 21:16 rn 03/26 20:40 Order name: Glucose Level; Complete Time: 22:20 rn Administered Medications: 03/26 20:43 Drug: Ativan 1 mg Route: IVP; Site: right forearm; aa1 22:20 Follow up: Response: No adverse reaction; Marked relief of symptoms aa1 20:58 Drug: Ativan 1 mg Route: IVP; Site: right forearm; aa1 22:20 Follow up: Response: No adverse reaction; Marked relief of symptoms aa1 21:14 Drug: Geodon 10 mg Route: IM; Site: right vastus lateralis; aa1 22:20 Follow up: Response: No adverse reaction; Marked relief of symptoms aa1 21:45 Drug: NS 0.9% 1000 ml Route: IV; Rate: 1000 ml; Site: right forearm; jv1 22:30 Follow up: IV Status: Completed infusion; IV Intake: 1000ml aa1 03/27 09:10 Drug: Albuterol - atroVENT (3:1) (2.5 mg - 0.5 mg) 3 ml Route: Nebulizer; bp 09:25 Follow up: Response: No adverse reaction; Wheezing diminished aa5 09:10 Drug: SOLU-Medrol 125 mg Route: IVP; Site: right forearm; bp 09:20 Follow up: Response: No adverse reaction aa5 10:51 CANCELLED (Physician Discretion): Thiamine 100 mg IV at bolus once aa5 Disposition: 03/27/19 09:48 Discharged to Home. Impression: Major depressive disorder, recurrent, Suicidal ideations, Alcohol abuse with intoxication, Cocaine abuse, Tobacco use, Tobacco abuse counseling, Chronic obstructive pulmonary disease, unspecified, Type 1 diabetes mellitus. - Condition is Fair. - Discharge Instructions: Chronic Bronchitis, Type 1 Diabetes Mellitus, Diagnosis, Adult, How to Use an Inhaler, Steps to Quit Smoking, Smoking Hazards, Chronic Obstructive Pulmonary Disease Exacerbation, Suicidal Feelings: How to Help Yourself, Helping Someone Who is Suicidal, Health Maintenance, Male, Cough, Adult, [id number], Cough, Adult, Chronic Obstructive Pulmonary Disease Exacerbation, [id number], Type 1 Diabetes Mellitus, Self Care, Adult, Type 1 Diabetes Mellitus, Diagnosis, Adult, [id number]. - Prescriptions for Medrol (Pedro) 4 mg Oral Tablets, Dose Pack - take 1 tablet by ORAL route as directed - follow package instructions; 1 packet. Albuterol Sulfate 90 mcg/actuation - inhale 1-2 puff by INHALATION route every 4-6 hours; 1 Inhaler. - Medication Reconciliation Form, Thank You Letter, Antibiotic Education, Prescription Opioid Use form. - Follow up: Private Physician; When: 2 - 3 days; Reason: Recheck today's complaints, Continuance of care, Re-evaluation by your physician. - Problem is new. - Symptoms have improved. Signatures: Dispatcher [employer] EDDeanna Cooper RN RN aa1 James Park MD MD cha Ballard, Brenda, RN RN bb Richi Vazquez MD MD rn Calderon, Audri RN RN aa5 Ben Kaye RN RN bp Vicente, Joyce RN RN jv1 Corrections: (The following items were deleted from the chart) 10:51 09:17 Thiamine 100 mg IV at bolus once ordered. [facility] aa5 10:51 10:51 Thiamine 100 mg IV at bolus once ordered. aa5 aa5 10:55 09:48 03/27/2019 09:48 Discharged to Home. Impression: Major depressive disorder, aa5 recurrent; Suicidal ideations; Alcohol abuse with intoxication; Cocaine abuse; Tobacco use; Tobacco abuse counseling; Chronic obstructive pulmonary disease, unspecified; Type 1 diabetes mellitus. Condition is Fair. Discharge Instructions: Chronic Bronchitis, How to Use an Inhaler, Steps to Quit Smoking, Smoking Hazards, Chronic Obstructive Pulmonary Disease Exacerbation, Suicidal Feelings: How to Help Yourself, Helping Someone Who is Suicidal, Health Maintenance, Male, Cough, Adult, [id number], Cough, Adult, Chronic Obstructive Pulmonary Disease Exacerbation, [id number]. Prescriptions for Medrol (Pedro) 4 mg Oral Tablets, Dose Pack - take 1 tablet by ORAL route as directed - follow package instructions; 1 packet, Albuterol Sulfate 90 mcg/actuation - inhale 1-2 puff by INHALATION route every 4-6 hours; 1 Inhaler. and Forms are Medication Reconciliation Form, Thank You Letter, Antibiotic Education, Prescription Opioid Use. Follow up: Private Physician; When: 2 - 3 days; Reason: Recheck today's complaints, Continuance of care, Re-evaluation by your physician. Problem is new. Symptoms have improved. umer
--- NOTE | 2019-03-27 09:49 | ER ---
Nurse's Notes [facility] Name: Prakash Bailey Age: 68 yrs Sex: Male : 1950 Arrival Date: 03/26/2019 Time: 20:39 Bed 7 Private MD: Diagnosis: Major depressive disorder, recurrent;Suicidal ideations;Alcohol abuse with intoxication;Cocaine abuse;Tobacco use;Tobacco abuse counseling;Chronic obstructive pulmonary disease, unspecified;Type 1 diabetes mellitus Presentation: 03/26 20:45 Presenting complaint: EMS states: they were toned out for report of pt found in a ditch bb intoxicated, saying he wants to kill himself. Transition of care: patient was not received from another setting of care. Onset of symptoms is unknown. Risk Assessment: Do you want to hurt yourself or someone else? Patient reports desire/thoughts of hurting themselves or someone else. Provider notified. Initial Sepsis Screen: Does the patient meet any 2 criteria? No. Patient's initial sepsis screen is negative. Does the patient have a suspected source of infection? No. Patient's initial sepsis screen is negative. Care prior to arrival: Glucose check: 176. 20:45 Method Of Arrival: EMS: [facility] bb 20:45 Acuity: BILL 2 bb Historical: - Allergies: 21:11 Aspirin; bb - PMHx: 21:11 Diabetes - IDDM; Hypertension; Substance Abuse; bb - PSHx: 21:11 Knee surgery; bb - Immunization history:: Adult Immunizations unknown. - Social history:: Smoking status: unknown Patient uses alcohol, patient/guardian reports recent binge of alcohol consumption. - Ebola Screening: : No symptoms or risks identified at this time. - Family history:: not pertinent. - Hospitalizations: : No recent hospitalization is reported. Screenin:50 Abuse screen: Denies threats or abuse. Denies injuries from another. Nutritional aa1 screening: No deficits noted. Tuberculosis screening: No symptoms or risk factors identified. Fall Risk Mental Status- Overestimates/Forgets Limitations (15 pts.). Assessment: 20:50 General: Appears in no apparent distress. unkempt, Behavior is inappropriate for age, aa1 restless, uncooperative, Smells of alcohol. Pain: Denies pain. Neuro: Level of Consciousness is awake, alert, Oriented to person, Moves all extremities. Full function Speech garbled. Facial symmetry appears normal, Pupils are PERRLA. Cardiovascular: Heart tones S1 S2 present Rhythm is regular. Respiratory: Airway is patent Respiratory effort is even, unlabored, Respiratory pattern is regular, symmetrical. GI: No signs and/or symptoms were reported involving the gastrointestinal system. Abdomen is non-distended. : No signs and/or symptoms were reported regarding the genitourinary system. EENT: Poor dentition noted. Derm: Skin is intact, is healthy with good turgor, Skin is pink, warm \\T\\ dry. Musculoskeletal: Circulation, motion, and sensation intact. Capillary refill < 3 seconds, Range of motion: intact in all extremities. 21:05 Reassessment: Rosa Ren RN to assume primary nurse role of pt at this time. aa1 22:20 Reassessment: Patient appears in no apparent distress at this time. Pt resting quietly, aa1 eyes closed. Respirations even \\T\\ unlabored. Pt no longer attempting to climb out of bed or fight with staff Patient states symptoms have improved. 23:22 Reassessment: Patient appears in no apparent distress at this time. No changes from aa1 previously documented assessment. Pt still resting quietly, eyes closed. 03/27 02:30 Reassessment: Patient appears in no apparent distress at this time. No changes from aa1 previously documented assessment. 04:46 Reassessment: Patient appears in no apparent distress at this time. No changes from aa1 previously documented assessment. Pt still resting quietly, eyes closed. Will continue to monitor to determine appropriate disposition for pt once he awakes. 06:08 Reassessment: Patient appears in no apparent distress at this time. No changes from aa1 previously documented assessment. Dr. Vazquez at bedside. Pt remains drowsy and mumbles when answering questions. Will continue to monitor. 07:20 Pain: Denies pain. Neuro: Level of Consciousness is obeys commands, Oriented to person, aa5 place, time, situation, Pt is drowsy and resting with eyes closed, pt awakens with verbal and tactile stimuli. . Business Process Associate are equal bilaterally Moves all extremities. Speech is normal, Facial symmetry appears normal, Pupils are PERRLA. Cardiovascular: Rhythm is sinus rhythm. Respiratory: Airway is patent Respiratory effort is even, unlabored, Respiratory pattern is regular, symmetrical. GI: No signs and/or symptoms were reported involving the gastrointestinal system. : No signs and/or symptoms were reported regarding the genitourinary system. Derm: Skin is pink, warm \\T\\ dry. Musculoskeletal: Range of motion: intact in all extremities. 08:30 Reassessment: Dr. Park at bedside speaking to pt. Pt denies suicidal ideation. . aa5 08:30 Neuro: Level of Consciousness is awake, alert, obeys commands, Oriented to person, aa5 place, time, situation. Respiratory: Airway is patent Respiratory effort is even, unlabored, Respiratory pattern is regular, symmetrical. Derm: Skin is pink, warm \\T\\ dry. 09:00 Reassessment: Pt given breakfast tray. Pt sitting up in bed eating breakfast. Pt aa5 tolerating well. . 09:00 Reassessment: Patient is alert, oriented x 3, equal unlabored respirations, skin aa5 warm/dry/pink. 10:00 Reassessment: Pt notified of d/c home order. Pt states "I live in [place] and I aa5 have nobody to pick me up", pt states "when I have to go out I just ride my bike". records supervisor was contacted and ticket for cab was obtained, pt agrees with riding the cab home. . 10:30 Reassessment: Patient is alert, oriented x 3, equal unlabored respirations, skin aa5 warm/dry/pink. Patient denies pain at this time. Vital Signs: 05 21:11 BP 120 / 95; Pulse 114; Resp 18 S; Pulse Ox 95% on R/A; bb 21:30 BP 113 / 66; Pulse 103; Resp 18 S; Pulse Ox 90% on R/A; jv1 21:58 Temp 97.8(A); bb 22:00 BP 111 / 74; Pulse 100; Resp 18 S; Temp 97.8; Pulse Ox 94% on 2 lpm NC; jv1 23:00 BP 126 / 73; Pulse 97; Resp 20 S; Temp 98(A); Pulse Ox 92% on 2 lpm NC; jv1 05 00:00 BP 128 / 82; Pulse 90; Resp 18 S; Temp 98; Pulse Ox 93% on 2 lpm NC; jv1 01:00 BP 129 / 80; Pulse 88; Resp 18; Temp 98; Pulse Ox 91% on R/A; jv1 02:00 BP 124 / 70; Pulse 90; Resp 18 S; Temp 97.9(A); Pulse Ox 93% on R/A; jv1 03:00 BP 125 / 75; Pulse 88; Resp 18 S; Temp 97.8; Pulse Ox 95% on R/A; jv1 04:00 BP 107 / 67; Pulse 84; Resp 18 S; Temp 98(A); Pulse Ox 93% on R/A; jv1 05:00 BP 110 / 70; Pulse 96; Resp 18; Temp 98(A); Pulse Ox 94% on R/A; jv1 06:00 BP 120 / 70; Pulse 94; Resp 18 S; Temp 98; Pulse Ox 93% on R/A; jv1 07:00 BP 123 / 79; Pulse 90; Resp 18; Temp 98.9; Pulse Ox 90% on R/A; jv1 07:20 BP 121 / 74; Pulse 90; Resp 20 S; Pulse Ox 92% on 2 lpm NC; aa5 08:01 BP 139 / 90; Pulse 91; Resp 21; Pulse Ox 96% on R/A; Pain 0/10; em1 09:02 BP 145 / 80; Pulse 92; Resp 22; Pulse Ox 94% on R/A; Pain 0/10; aa5 10:20 BP 158 / 79; Pulse 97; Resp 20 S; Temp 98.0(TE); Pulse Ox 94% on R/A; Pain 0/10; aa5 ED Course: 03/26 20:39 Patient arrived in ED. rn 20:39 Richi Vazquez MD is Attending Physician. rn 20:45 Safety Checks: Personal items have been removed. The door is open or patient has been aa1 placed in a hallway bed/chair. Sitter present at this time. 20:45 Urine collected: clean catch specimen, clear. aa1 20:50 Arm band placed on Patient placed in an exam room, on a stretcher, on pulse oximetry, bb security called to bedside pt combative. 20:50 Patient has correct armband on for positive identification. Bed in low position. Side aa1 rails up X2. 20:50 Pulse ox on. NIBP on. aa1 20:55 Inserted saline lock: 20 gauge in right forearm, using aseptic technique. ,using bb aseptic technique. by Deanna RAMOS. 21:00 Safety Checks: Personal items have been removed. The door is open or patient has been jv1 placed in a hallway bed/chair. Sitter present at this time. 21:01 Initial lab(s) drawn, by me, sent to lab. aa1 21:05 Report given to Rosa Ren RN. aa1 21:11 Triage completed. bb 21:15 Safety Checks: Personal items have been removed. The door is open or patient has been jv1 placed in a hallway bed/chair. Sitter present at this time. 21:26 Assisted with urinal. Linen changed. aa1 21:30 Safety Checks: Personal items have been removed. The door is open or patient has been jv1 placed in a hallway bed/chair. Sitter present at this time. 21:45 Safety Checks: Personal items have been removed. The door is open or patient has been jv1 placed in a hallway bed/chair. Sitter present at this time. 22:00 Safety Checks: Personal items have been removed. The door is open or patient has been jv1 placed in a hallway bed/chair. Sitter present at this time. 22:15 Safety Checks: Personal items have been removed. The door is open or patient has been jv1 placed in a hallway bed/chair. Sitter present at this time. 22:30 Safety Checks: Personal items have been removed. The door is open or patient has been jv1 placed in a hallway bed/chair. Sitter present at this time. 22:45 Safety Checks: Personal items have been removed. The door is open or patient has been jv1 placed in a hallway bed/chair. Sitter present at this time. 23:00 Safety Checks: Personal items have been removed. The door is open or patient has been jv1 placed in a hallway bed/chair. Sitter present at this time. 23:15 Safety Checks: Personal items have been removed. The door is open or patient has been jv1 placed in a hallway bed/chair. There are no family/friend visitors at this time Sitter present at this time. 23:30 Safety Checks: Personal items have been removed. The door is open or patient has been jv1 placed in a hallway bed/chair. There are no family/friend visitors at this time Sitter present at this time. 23:45 Safety Checks: Personal items have been removed. The door is open or patient has been jv1 placed in a hallway bed/chair. There are no family/friend visitors at this time Sitter present at this time. 03/27 00:00 Safety Checks: Personal items have been removed. The door is open or patient has been jv1 placed in a hallway bed/chair. There are no family/friend visitors at this time Sitter present at this time. 00:15 Safety Checks: Personal items have been removed. The door is open or patient has been jv1 placed in a hallway bed/chair. Sitter present at this time. 00:30 Safety Checks: Personal items have been removed. The door is open or patient has been jv1 placed in a hallway bed/chair. Sitter present at this time. 00:45 Safety Checks: Personal items have been removed. The door is open or patient has been jv1 placed in a hallway bed/chair. Sitter present at this time. 01:00 Safety Checks: Personal items have been removed. The door is open or patient has been jv1 placed in a hallway bed/chair. There are no family/friend visitors at this time Sitter present at this time. 01:15 Safety Checks: Personal items have been removed. The door is open or patient has been jv1 placed in a hallway bed/chair. Sitter present at this time. 01:30 Safety Checks: Personal items have been removed. The door is open or patient has been jv1 placed in a hallway bed/chair. Sitter present at this time. 01:45 Safety Checks: Personal items have been removed. The door is open or patient has been jv1 placed in a hallway bed/chair. Sitter present at this time. 02:00 Safety Checks: Personal items have been removed. The door is open or patient has been jv1 placed in a hallway bed/chair. Sitter present at this time. 02:15 Safety Checks: Personal items have been removed. The door is open or patient has been jv1 placed in a hallway bed/chair. Sitter present at this time. 02:30 Safety Checks: Personal items have been removed. The door is open or patient has been jv1 placed in a hallway bed/chair. Sitter present at this time. 02:45 Safety Checks: Personal items have been removed. The door is open or patient has been jv1 placed in a hallway bed/chair. Sitter present at this time. 03:00 Safety Checks: Personal items have been removed. The door is open or patient has been jv1 placed in a hallway bed/chair. Sitter present at this time. 03:15 Safety Checks: Personal items have been removed. The door is open or patient has been jv1 placed in a hallway bed/chair. Sitter present at this time. 03:30 Safety Checks: Personal items have been removed. The door is open or patient has been jv1 placed in a hallway bed/chair. Sitter present at this time. 03:45 Safety Checks: Personal items have been removed. The door is open or patient has been jv1 placed in a hallway bed/chair. Sitter present at this time. 04:00 Safety Checks: Personal items have been removed. The door is open or patient has been jv1 placed in a hallway bed/chair. Sitter present at this time. 04:15 Safety Checks: Personal items have been removed. The door is open or patient has been jv1 placed in a hallway bed/chair. Sitter present at this time. 04:30 Safety Checks: Personal items have been removed. The door is open or patient has been jv1 placed in a hallway bed/chair. Sitter present at this time. 04:45 Safety Checks: Personal items have been removed. The door is open or patient has been jv1 placed in a hallway bed/chair. Sitter present at this time. 05:00 Safety Checks: Personal items have been removed. The door is open or patient has been jv1 placed in a hallway bed/chair. Sitter present at this time. 05:15 Safety Checks: Personal items have been removed. The door is open or patient has been jv1 placed in a hallway bed/chair. Sitter present at this time. 05:30 Safety Checks: Personal items have been removed. The door is open or patient has been jv1 placed in a hallway bed/chair. Sitter present at this time. 05:45 Safety Checks: Personal items have been removed. The door is open or patient has been jv1 placed in a hallway bed/chair. Sitter present at this time. 06:00 Safety Checks: Personal items have been removed. The door is open or patient has been jv1 placed in a hallway bed/chair. Sitter present at this time. 06:15 Safety Checks: Personal items have been removed. The door is open or patient has been jv1 placed in a hallway bed/chair. Sitter present at this time. 06:30 Safety Checks: Personal items have been removed. The door is open or patient has been jv1 placed in a hallway bed/chair. Sitter present at this time. 06:45 Safety Checks: Personal items have been removed. The door is open or patient has been jv1 placed in a hallway bed/chair. Sitter present at this time. 07:00 Safety Checks: Personal items have been removed. The door is open or patient has been jv1 placed in a hallway bed/chair. Sitter present at this time. 07:00 Safety checks: Items removed: yes. Door open/sign placed on door: yes. Family/friend em1 present: no. Sitter present: Yes. 07:00 Report received from Deanna Galo RN. aa5 07:15 Safety Checks: Personal items have been removed. The door is open or patient has been aa5 placed in a hallway bed/chair. There are no family/friend visitors at this time Sitter present at this time. 07:15 Safety checks: Items removed: yes. Door open/sign placed on door: yes. Family/friend em1 present: no. Sitter present: Yes. 07:17 Deanna Simmons RN is Primary Nurse. aa1 07:18 Attending Physician role handed off by Richi Vazquez MD [facility] 07:18 James Park MD is Attending Physician. [facility] 07:30 Safety checks: Items removed: yes. Door open/sign placed on door: yes. Family/friend em1 present: no. Sitter present: Yes. 07:45 Safety checks: Items removed: yes. Door open/sign placed on door: yes. Family/friend em1 present: no. Sitter present: Yes. 08:00 Safety checks: Items removed: yes. Door open/sign placed on door: yes. Family/friend em1 present: no. Sitter present: Yes. 08:15 Safety checks: Items removed: yes. Door open/sign placed on door: yes. Family/friend em1 present: no. Sitter present: Yes. 08:30 Safety checks: Items removed: yes. Door open/sign placed on door: yes. Family/friend em1 present: no. Sitter present: Yes. 08:45 Safety checks: Items removed: yes. Door open/sign placed on door: yes. Family/friend em1 present: no. Sitter present: Yes. 08:49 Diet tray given. Head of bed elevated. em1 09:00 Safety checks: Items removed: yes. Door open/sign placed on door: yes. Family/friend em1 present: no. Sitter present: Yes. 09:15 Safety checks: Items removed: yes. Door open/sign placed on door: yes. Family/friend em1 present: no. Sitter present: Yes. 09:54 Chest Single View XRAY In Process Unspecified. EDMS 10:30 No provider procedures requiring assistance completed. IV discontinued, intact, aa5 bleeding controlled, No redness/swelling at site. Pressure dressing applied. Administered Medications: 03/26 20:43 Drug: Ativan 1 mg Route: IVP; Site: right forearm; aa1 22:20 Follow up: Response: No adverse reaction; Marked relief of symptoms aa1 20:58 Drug: Ativan 1 mg Route: IVP; Site: right forearm; aa1 22:20 Follow up: Response: No adverse reaction; Marked relief of symptoms aa1 21:14 Drug: Geodon 10 mg Route: IM; Site: right vastus lateralis; aa1 22:20 Follow up: Response: No adverse reaction; Marked relief of symptoms aa1 21:45 Drug: NS 0.9% 1000 ml Route: IV; Rate: 1000 ml; Site: right forearm; jv1 22:30 Follow up: IV Status: Completed infusion; IV Intake: 1000ml aa1 03/27 09:10 Drug: Albuterol - atroVENT (3:1) (2.5 mg - 0.5 mg) 3 ml Route: Nebulizer; bp 09:25 Follow up: Response: No adverse reaction; Wheezing diminished aa5 09:10 Drug: SOLU-Medrol 125 mg Route: IVP; Site: right forearm; bp 09:20 Follow up: Response: No adverse reaction aa5 10:51 CANCELLED (Physician Discretion): Thiamine 100 mg IV at bolus once aa5 Intake: 03/26 22:30 IV: 1000ml; Total: 1000ml. aa1 03/27 06:30 PO: 0ml; IV: 1000ml; Total: 2000ml. jv1 Output: 06:30 Urine: 1800ml (Voided); Total: 1800ml. jv1 Outcome: 09:48 Discharge ordered by MD. umer 10:35 Discharged to home ambulatory. aa5 10:35 Condition: stable 10:35 Discharge instructions given to patient, Instructed on discharge instructions, follow up and referral plans. medication usage, Demonstrated understanding of instructions, follow-up care, medications, Prescriptions given X 2. 10:55 Patient left the ED. aa5 Signatures: Dispatcher [employer] EDMS Deanna Simmons RN RN aa1 James Park MD MD cha Ballard, Brenda, RN RN bb Nieto, Roman, MD MD rn Martinez, Eric em1 Kathryn Waller RN RN aa5 Ben Kaye RN RN bp Vicente, Joyce, RN RN jv1 Corrections: (The following items were deleted from the chart) 03/26 22:47 22:39 Safety Checks: Personal items have been removed. The door is open or patient has jv1 been placed in a hallway bed/chair. Sitter present at this time. jv1 23:46 23:15 Safety Checks: Personal items have been removed. The door is open or patient has jv1 been placed in a hallway bed/chair. There are no family/friend visitors at this time Sitter present at this time. jv1 03/27 03:32 03:27 Safety Checks: Personal items have been removed. The door is open or patient has jv1 been placed in a hallway bed/chair. Sitter present at this time. jv1 06:34 06:17 PO 0, IV 1000, Intake Total 1000; Urine 1800, (Voided), Output Total 1800. jv1 jv1 07:20 07:11 Safety checks: em1 em1 07:27 07:15 Safety Checks: Personal items have been removed. The door is open or patient has aa5 been placed in a hallway bed/chair. There are no family/friend visitors at this time Sitter present at this time. aa1 : 07:00 Report received from Deanna Galo RN aa1 aa5 07:23 BP 121 / 74; Pulse 90bpm; Resp 20bpm; Spontaneous; Pulse Ox 92% 2 lpm Nasal aa5 Cannula; aa 07:20 Pain: Denies pain. aa1 07:20 Neuro: Level of Consciousness is obeys commands, Oriented to person, place, time, aa5 situation, Pt is drowsy and resting with eyes closed, pt awakens with verbal and tactile stimuli. . Business Process Associate are equal bilaterally Moves all extremities. Speech is normal, Facial symmetry appears normal, Pupils are PERRLA, aa 07:20 Cardiovascular: Rhythm is sinus rhythm aa1 07:20 Respiratory: Airway is patent Respiratory effort is even, unlabored, Respiratory aa5 pattern is regular, symmetrical, aa 07:20 Derm: Skin is pink, warm \\T\\ dry. aa1 07:20 Musculoskeletal: Range of motion: intact in all extremities, aa1 07:20 GI: No signs and/or symptoms were reported involving the gastrointestinal system. aa5 07:20 : No signs and/or symptoms were reported regarding the genitourinary system. aa1aa5 09:32 09:31 SOLU-Medrol 125 mg IVP in right forearm bp bp 10:53 09:02 BP 145 / 100; Pulse 102bpm; Resp 22bpm; Pulse Ox 94% RA; Pain 0/10; em1 aa5
--- NOTE | 2019-03-27 10:15 | RAD REPORT ---
EXAM DESCRIPTION: RAD - Chest Single View - 03/27/2019 9:54 am CLINICAL HISTORY: COPD Chest pain. COMPARISON: Chest Single View dated 01/31/2019; Chest Single View dated 12/20/2018; Chest Single View dated 03/04/2017; Chest Single View dated 01/29/2017 FINDINGS: Portable technique limits examination quality. The lungs are emphysematous but grossly clear. The heart is normal in size. No displaced fractures. IMPRESSION: COPD.
[2019-03-27] MEDS ORDERED: NA CHLORIDE 0.9% 0 ML IV ONE (10:45)
[2019-03-27] MEDS ORDERED: THIAMINE 200 MG/2 ML INJ ONE (10:45)
[2019-03-27 11:32] VITALS: O2SAT 94
[2019-03-27 11:33] VITALS: BP 158/79; TEMP 98
== END 2019-03-27 10:55 | disposition home or self-care (01) ==
LOC: ER 20:36
DX: F33.9 Major depressive disorder, recurrent, unspecified (principal); F10.129 Alcohol abuse with intoxication, unspecified; F14.10 Cocaine abuse, uncomplicated; J44.9 Chronic obstructive pulmonary disease, unspecified; E10.9 Type 1 diabetes mellitus without complications; R45.851 Suicidal ideations; I10 Essential (primary) hypertension; Z88.6 Allergy status to analgesic agent; Z79.4 Long term (current) use of insulin
CPT/HCPCS: 96361; 93005; 85025; 80048; 36415; 80320; 80329 ×2; 85610; 80076; 80307 ×8; 85730; 81003; 71045; 94640; 96375; 96372; 96374; 99285; J3486; J7030; J2930; J3411

== ENCOUNTER 2019-05-03 07:57 | Emergency (ER) | payer OTHER ==
--- NOTE | 2019-05-03 09:00 | RAD REPORT ---
EXAM DESCRIPTION: CT - Head C Spine Mpr Wo Con - 05/03/2019 8:25 am CLINICAL HISTORY: Head and neck injury status post fall. Head and neck pain COMPARISON: 2014 TECHNIQUE: Computed axial tomography of the head and cervical spine was obtained. Sagittal and coronal reconstruction was performed. All CT scans are performed using dose optimization technique as appropriate and may include automated exposure control or mA/KV adjustment according to patient size. FINDINGS: Left frontal scalp swelling. No skull fracture noted. An intracranial bleed is not seen. The ventricles are normal in caliber. An extra-axial fluid collect ion is not noted.Fluid within the visualized sinuses and mastoids is not seen A cervical fracture is not visualized. No dislocation is noted. Spondylosis involves mid and distal c ervical spine IMPRESSION: No acute intracranial abnormality is seen. A cervical fracture is not visualized. If the patient continues to have symptoms to suggest intracra nial /spinal cord pathology then MRI would be recommended
[2019-05-03] MEDS ORDERED: KETOROLAC 30 MG/ML INJ ONE (09:06)
[2019-05-03 09:21] LABS: Absolute Lymphocytes (CBC) 1.4 K/uL (0.7-4.9); Basophils % 0.6 % (0-1.3); Eosinophils % 1.9 % (0-4.4); Hematocrit 48.6 % (39.6-49.0); MPV 8.6 fL (7.6-11.3); RBC Red Blood Cell Count 5.01 M/uL (4.33-5.43)
[2019-05-03 09:31] LABS: ALT/SGPT 14 U/L (12-78); AST/SGOT 15 U/L (15-37); Albumin 3.6 g/dL (3.4-5.0); Alkaline Phosphatase 148 U/L (45-117); BUN Blood Urea Nitrogen 10 mg/dL (7-18); Bicarbonate 29 mmol/L (21-32); Bilirubin Total 0.6 mg/dL (0.2-1.0); Glucose Level 165 mg/dL (74-106); Potassium 3.7 mmol/L (3.5-5.1); Protein, Total 7.6 g/dL (6.4-8.2); Sodium Level 138 mmol/L (136-145)
--- NOTE | 2019-05-03 09:41 | RAD REPORT ---
EXAM DESCRIPTION: Kristen Single View05/03/2019 8:57 am CLINICAL HISTORY: Chest pain COMPARISON: March 2019 FINDINGS: The lungs appear clear of acute infiltrate. The heart is normal size IMPRESSION: No acute abnormalities displayed
--- NOTE | 2019-05-03 10:05 | ER ---
Nurse's Notes [facility] Name: Prakash Bailey Age: 68 yrs Sex: Male : 1950 Arrival Date: 05/03/2019 Time: 08:01 Bed 2 Private MD: Diagnosis: Intercostal pain, right;Acute bronchitis;Fall Presentation: 05/03 08:01 Presenting complaint: Patient states: fall 3 weeks ago. Pt states "I was walking to the [facility] restroom and fell onto the bathtub". Unknown LOC, pt reports he hit left side of forehead. Pt c/o pain to right lower rib cage and right knee. Care prior to arrival: Glucose check: 193. Mechanism of Injury: Fall from standing position. Trauma event details: Injury occurred in the [facility]. 08:01 Method Of Arrival: EMS: [facility] 08:01 Acuity: BILL 3 aa5 08:01 Transition of care: patient was not received from another setting of care. Onset of aa5 symptoms was 2019. Risk Assessment: Do you want to hurt yourself or someone else? Patient reports no desire to harm self or others. Initial Sepsis Screen: Does the patient meet any 2 criteria? No. Patient's initial sepsis screen is negative. Does the patient have a suspected source of infection? No. Patient's initial sepsis screen is negative. Trauma Activation: Not Applicable Physician: ED Physician; Name: ; Notified At: ; Arrived At: Physician: General Surgeon; Name: ; Notified At: ; Arrived At: Physician: Radiology; Name: ; Notified At: ; Arrived At: Physician: Respiratory; Name: ; Notified At: ; Arrived At: Physician: Lab; Name: ; Notified At: ; Arrived At: Historical: - Allergies: 08:01 Aspirin; aa5 - PMHx: 08:01 Diabetes - IDDM; Hypertension; Substance Abuse; aa5 - PSHx: 08:01 Knee surgery; aa5 - Immunization history:: Adult Immunizations unknown. - Social history:: Smoking status: Patient uses tobacco products, smokes one pack cigarettes per day. - Ebola Screening: : No symptoms or risks identified at this time. Screenin:10 Abuse screen: Denies threats or abuse. Nutritional screening: No deficits noted. aa5 Tuberculosis screening: No symptoms or risk factors identified. Fall Risk Fall in past 12 months (25 points). Total Ibanez Fall Scale indicates Low Risk Score (25-44 pts). Fall prevention measures have been instituted. Side Rails Up X 2. Primary Survey: 08:01 NO uncontrolled hemorrhage observed. A: The patient is alert. Breathing/Chest: Chest aa5 inspection: symmetrical rise and fall of the chest. Circulation: Skin color: normal. Disability Alert. Exposure/Environment: There is no evidence of uncontrolled external bleeding. 08:15 Reassessment Airway Airway Patent Breathing/Chest Respiratory pattern Regular aa5 Respiratory effort Spontaneous Chest inspection Symmetrical Circulation Color Other normal Disability Alert. Assessment: 08:02 General: Appears uncomfortable, Behavior is calm, cooperative. Pain: Complains of pain aa5 in right lower lateral aspect of chest and right knee Pain does not radiate. Pain currently is 8 out of 10 on a pain scale. Quality of pain is described as sharp, shooting, Pain began 3 weeks ago Is continuous, Aggravated by increased activity, repositioning, Noted to be resistant to movement. Neuro: Level of Consciousness is awake, alert, obeys commands, Oriented to person, place, time, situation. EENT: No signs and/or symptoms were reported regarding the EENT system. Cardiovascular: Heart tones S1 S2 present Rhythm is regular. Respiratory: Reports difficulty taking a deep breath due to pain Airway is patent Respiratory effort is even, unlabored, Respiratory pattern is regular, symmetrical, Breath sounds are coarse bilaterally. GI: No signs and/or symptoms were reported involving the gastrointestinal system. : No signs and/or symptoms were reported regarding the genitourinary system. Derm: Skin is dry, Skin is normal, Skin temperature is warm Bruising that is dark purple, on left side of forehead Scab noted to right presybeterian, pt states "this scab (right presybeterian) is from another incident". Scab noted to right knee. . Musculoskeletal: Range of motion: intact in all extremities. 08:20 Reassessment: Pt to radiology via stretcher at this time . aa5 08:54 Reassessment: Pt requesting pain medication, Dr. Greenwood was notified at 0853. Pt rates aa5 pain 8/10 on a pain scale. Pt now resting in bed with eyes closed, respirations even and unlabored,skin is normal/warm/dry . 08:55 Reassessment: Pt notified of need for urine specimen, pt verbalized understanding. . aa5 09:30 Reassessment: Pt resting in bed with eyes closed, respirations even and unlabored, skin aa5 is normal/warm/dry . 11:07 Reassessment: Pt states he does not have any way of getting home or filling his ss prescriptions. Pt verbalizes understanding importance of using incentive spirometer, follow up and returning to ED for any worsening symptoms. [employer] approved TAXI to return patient home. Vital Signs: 08:01 BP 135 / 90; Pulse 93; Resp 14 S; Temp 98.2(O); Pulse Ox 96% on R/A; Weight 81.65 kg aa5 (R); Height 5 ft. 7 in. (170.18 cm) (R); Pain 8/10; 09:00 BP 127 / 82; Pulse 67; Resp 16 S; Pulse Ox 96% on R/A; Pain 8/10; aa5 11:12 BP 134 / 83; Pulse 85; Resp 18; Pulse Ox 100% on R/A; ss 08:01 Body Mass Index 28.19 (81.65 kg, 170.18 cm) aa5 [place] Coma Score: 08:01 Eye Response: spontaneous(4). Verbal Response: oriented(5). Motor Response: obeys aa5 commands(6). Total: 15. Trauma Score (Adult): 08:01 Eye Response: spontaneous(1); Verbal Response: oriented(1); Motor Response: obeys aa5 commands(2); Systolic BP: > 89 mm Hg(4); Respiratory Rate: 10 to 29 per min(4); [place] Score: 15; Trauma Score: 12 09:00 Eye Response: spontaneous(1); Verbal Response: oriented(1); Motor Response: obeys aa5 commands(2); Systolic BP: > 89 mm Hg(4); Respiratory Rate: 10 to 29 per min(4); Najma Score: 15; Trauma Score: 12 ED Course: 08:01 Patient arrived in ED. aa5 08:01 Scotty Greenwood MD is Attending Physician. ps1 08:01 Arm band placed on Patient placed in an exam room, on a stretcher. aa5 08:01 Patient has correct armband on for positive identification. Bed in low position. Call aa5 light in reach. Side rails up X2. 08:03 Triage completed. aa5 08:10 Kathryn Waller, RN is Primary Nurse. aa5 08:11 Patient maintains SpO2 saturation greater than 95% on room air. Thermoregulation: warm aa5 blanket given to patient. 08:18 No provider procedures requiring assistance completed. aa5 08:27 CT Head C Spine In Process Unspecified. EDMS 08:43 Initial lab(s) drawn, by me, sent to lab. T\\T\\S collected, blood band applied to patient. jb1 Inserted saline lock: 22 gauge in right antecubital area, using aseptic technique. Blood collected. 08:53 XRAY Chest (1 view) In Process Unspecified. EDMS 11:07 IV discontinued, intact, bleeding controlled, No redness/swelling at site. Pressure ss dressing applied. Administered Medications: 08:54 Drug: TORadol 30 mg Route: IVP; Site: right antecubital; aa5 09:00 Follow up: Response: No adverse reaction aa5 Intake: 09:30 PO: 0ml; Total: 0ml. aa5 Outcome: 10:04 Discharge ordered by . ps1 10:04 Patient's length of stay was not longer than 2 hours. aa5 11:12 Discharged to home via wheelchair, TAXI service 11:12 Condition: good 11:12 Discharge instructions given to patient, Instructed on discharge instructions, follow up and referral plans. safe sex practices, IS Demonstrated understanding of instructions, follow-up care, medications, IS 11:13 Patient left the ED. ss Signatures: Dispatcher [employer] EDMS Unruly Carlitos jb1 Kathryn Waller, RACHEL RAMOS aa5 Lyla Lopez RN RN ss Scotty Greenwood MD MD ps1 Corrections: (The following items were deleted from the chart) 08:07 08:01 Acuity: BILL 4 aa5 aa5 08:10 08:01 Care prior to arrival: None. aa5 aa5 08:21 08:02 Pain: Complains of pain in right lower lateral aspect of chest Pain does not aa5 radiate. Pain currently is 8 out of 10 on a pain scale. Quality of pain is described as sharp, shooting, Pain began 3 weeks ago Is continuous, Aggravated by increased activity, repositioning, Noted to be resistant to movement, aa5 08:55 08:54 Reassessment: Pt requesting pain medication, Dr. Greenwood was notified. Pt rates aa5 pain 8/10 on a pain scale. Pt now resting in bed with eyes closed, respirations even and unlabored,skin is normal/warm/dry . aa5
--- NOTE | 2019-05-03 10:05 | EDPHYS ---
Physician Documentation [facility] Name: Prakash Bailey Age: 68 yrs Sex: Male : 1950 Arrival Date: 05/03/2019 Time: 08:01 Bed 2 Private MD: ED Physician Scotty Greenwood Historical: - Allergies: 05/03 08:01 Aspirin; aa5 - PMHx: 08:01 Diabetes - IDDM; Hypertension; Substance Abuse; aa5 - PSHx: 08:01 Knee surgery; aa5 - Immunization history:: Adult Immunizations unknown. - Social history:: Smoking status: Patient uses tobacco products, smokes one pack cigarettes per day. - Ebola Screening: : No symptoms or risks identified at this time. Vital Signs: 08:01 BP 135 / 90; Pulse 93; Resp 14 S; Temp 98.2(O); Pulse Ox 96% on R/A; Weight 81.65 kg aa5 (R); Height 5 ft. 7 in. (170.18 cm) (R); Pain 8/10; 09:00 BP 127 / 82; Pulse 67; Resp 16 S; Pulse Ox 96% on R/A; Pain 8/10; aa5 11:12 BP 134 / 83; Pulse 85; Resp 18; Pulse Ox 100% on R/A; ss 08:01 Body Mass Index 28.19 (81.65 kg, 170.18 cm) aa5 [place] Coma Score: 08:01 Eye Response: spontaneous(4). Verbal Response: oriented(5). Motor Response: obeys aa5 commands(6). Total: 15. Trauma Score (Adult): 08:01 Eye Response: spontaneous(1); Verbal Response: oriented(1); Motor Response: obeys aa5 commands(2); Systolic BP: > 89 mm Hg(4); Respiratory Rate: 10 to 29 per min(4); Najma Score: 15; Trauma Score: 12 09:00 Eye Response: spontaneous(1); Verbal Response: oriented(1); Motor Response: obeys aa5 commands(2); Systolic BP: > 89 mm Hg(4); Respiratory Rate: 10 to 29 per min(4); Najma Score: 15; Trauma Score: 12 MDM: 08:14 Patient medically screened. ps1 05/03 08:13 Order name: CBC with Diff; Complete Time: 09:42 ps1 05/03 08:13 Order name: Type And Screen; Complete Time: 10:37 ps1 05/03 08:13 Order name: CT Head C Spine; Complete Time: 09:10 ps1 05/03 08:13 Order name: XRAY Chest (1 view); Complete Time: 09:47 ps1 05/03 08:13 Order name: CMP; Complete Time: 09:42 [facility] 05/03 10:06 Order name: INCENTIVE SPIROMETRY [facility] 05/03 08:13 Order name: Labs collected and sent; Complete Time: 08:44 ps1 Administered Medications: 08:54 Drug: TORadol 30 mg Route: IVP; Site: right antecubital; aa5 09:00 Follow up: Response: No adverse reaction aa5 Disposition: 05/03/19 10:04 Discharged to Home. Impression: Intercostal pain, right, Acute bronchitis, Fall. - Condition is Stable. - Discharge Instructions: Rib Contusion, Incentive Spirometer. - Prescriptions for Anaprox DS 550 mg Oral Tablet - take 1 tablet by ORAL route every 12 hours As needed; 20 tablet. Zithromax Z- Pedro 250 mg Oral Tablet - take 1 tablet by ORAL route as directed for 5 days Day 1 - take two (2) tablets one time. Day 2, 3, 4 , 5 take one (1) tablet once daily.; 6 tablet. Medrol (Pedro) 4 mg Oral Tablets, Dose Pack - take 1 tablet by ORAL route as directed - follow package instructions; 1 packet. - Medication Reconciliation Form, Thank You Letter, Antibiotic Education, Prescription Opioid Use form. - Follow up: Private Physician; When: As needed; Reason: Further diagnostic work-up, Recheck today's complaints, Continuance of care, Re-evaluation by your physician. Follow up: Emergency Department; When: As needed; Reason: Worsening of condition. - Problem is an ongoing problem. - Symptoms are unchanged. Addendum: 05/23/2019 13:32 Addendum: 68 y/o M presenting s/p fall 3 weeks ago and now being evaluated for MSK p s1 pain. Pain in neck, right ribs, and knee. No obvious injury or deformity. Unknown LOC. Has been ambulatory since. Pain is described as shooting pain. Has not tried any medications up to this point but has a history of substance abuse. Rates pain as moderate ans worse with movement. ROS: postive for msk pain as described. No YO, CP, SOB, fever, or leg swelling. PHY: NCAT, no pereira signs or concern for BSF, PERRL, EOMI, CTAB, RRR, Abd SNT, tenderness to right rib and knee. No effusion or ob fx., no pulse deficit. VSS. reviewed. POC: Imaging of H,N no ICH or traumatic injury. Probable rib contusion. Home with symptomatic meds and azithromycin for cough, IS for pulmonary rehab 2/2 pain. Can follow up OP after OP trial of NSAIDS for further diagnostic imaging if pain is persistent. Stable for discharge. . Signatures: Dispatcher [employer] EDKathryn Cunningham RN RN aa5 Lyla Lopez RN RN ss Scotty Greenwood MD MD ps1 Corrections: (The following items were deleted from the chart) 05/03 11:13 10:04 05/03/2019 10:04 Discharged to Home. Impression: Intercostal pain, right; Acute ss bronchitis; Fall. Condition is Stable. Forms are Medication Reconciliation Form, Thank You Letter, Antibiotic Education, Prescription Opioid Use. Follow up: Private Physician; When: As needed; Reason: Further diagnostic work-up, Recheck today's complaints, Continuance of care, Re-evaluation by your physician. Follow up: Emergency Department; When: As needed; Reason: Worsening of condition. Problem is an ongoing problem. Symptoms are unchanged. ps1 05/23 13:40 13:32 Addendum: 68 y/o M presenting s/p fall 3 weeks ago and now being evaluated for ps1 MSK pain. Pain in neck, right ribs, and knee. No obvious injury or deformity. Unknown LOC. Has been ambulatory since. Pain is described as shooting pain. Has not tried any medications up to this point but has a history of substance abuse. Rates pain as moderate ans worse with movement. ROS: postive for msk pain as described. No YO, CP, SOB, fever, or leg swelling. PHY: NCAT, no pereira signs or concern for BSF, PERRL, EOMI, CTAB, RRR, Abd SNT, tenderness to right rib and knee. No effusion or ob fx., no pulse deficit. VSS. reviewed. POC: Imaging of H,N no ICH or traumatic injury. Home with symptomatic meds. Can follow up OP after OP trial of NSAIDS for further diagnostic imaging if pain is persistent. Stable for discharge. . ps1
[2019-05-03 11:26] VITALS: TEMP 98.2
[2019-05-03 11:29] VITALS: BP 134/83; O2SAT 100
== END 2019-05-03 11:13 | disposition home or self-care (01) ==
LOC: ER 07:57
DX: R07.82 Intercostal pain (principal); J20.9 Acute bronchitis, unspecified; W19.XXXA Unspecified fall, initial encounter; Y93.9 Activity, unspecified; Y92.9 Unspecified place or not applicable; Z88.6 Allergy status to analgesic agent; I10 Essential (primary) hypertension; F17.210 Nicotine dependence, cigarettes, uncomplicated
CPT/HCPCS: 36415; 70450; 71045; 72125; 80053; 85025; 86850; 86900; 86901; 96374; 99284

== ENCOUNTER 2019-06-23 19:30 | Inpatient (IN) | payer OTHER ==
[2019-06-23] MEDS ORDERED: WATER FOR INJ,STERILE 10 ML ONE (19:35)
[2019-06-23] MEDS ORDERED: ZIPRASIDONE MESYLA 20 MG/VIAL IM ONE ×2 (19:35→23:02)
--- NOTE | 2019-06-23 20:10 | RAD REPORT ---
EXAM DESCRIPTION: RAD - Chest Single View - 06/23/2019 7:50 pm CLINICAL HISTORY: COPD, shortness of breath COMPARISON: April 2019 TECHNIQUE: AP portable chest image was obtained 1947 hours . FINDINGS: Lungs are clear. Heart and vasculature are normal. No measurable pleural effusion and no p neumothorax. No acute bony abnormality seen. No acute aortic findings suspected. IMPRESSION: No acute cardiopulmonary process. No significant interval change.
[2019-06-23] MEDS ORDERED: THIAMINE 200 MG/2 ML INJ ONE ×2 (20:22→22:25)
[2019-06-23] MEDS ORDERED: NA CHLORIDE 0.9% 0 ML ONE (20:24)
[2019-06-23] MEDS ORDERED: FOLIC ACID 5 MG/ML VIAL ONE (20:24)
[2019-06-23] MEDS ORDERED: MULTIVITAMINS 10 ML VIAL (INJ) IV ONE (20:24)
[2019-06-23 21:03] LABS: Absolute Lymphocytes (CBC) 1.7 K/uL (0.7-4.9); Basophils % 0.9 % (0-1.3); Hematocrit 47.3 % (39.6-49.0); Lymphocytes % 23.4 % (15.3-44.8); MPV 8.9 fL (7.6-11.3)
[2019-06-23 21:13] LABS: Protime INR 1.01
[2019-06-23] MEDS ORDERED: NA CHLORIDE 0.9% 1,000 ML ONE ×2 (21:14→22:26)
[2019-06-23 21:23] LABS: ALT/SGPT 16 U/L (12-78); AST/SGOT 16 U/L (15-37); Albumin 3.7 g/dL (3.4-5.0); Alkaline Phosphatase 81 U/L (45-117); BUN Blood Urea Nitrogen 8 mg/dL (7-18); Bicarbonate 17 mmol/L (21-32); Bilirubin Direct 0.2 mg/dL (0-0.2); Bilirubin Total 0.7 mg/dL (0.2-1.0); CKMB Creatine Kinase MB 4.7 ng/mL (0.3-3.6); Creatine Phosphokinase 293 U/L (39-308); Glucose Level 137 mg/dL (74-106); Magnesium 1.9 mg/dL (1.8-2.4); NT PRO-BNP 391 pg/mL (<125); Protein, Total 7.2 g/dL (6.4-8.2); Sodium Level 138 mmol/L (136-145); Troponin (Emerg Dept Use Only) < 0.02 ng/mL (0.0-0.045)
[2019-06-23 21:26] LABS: Potassium 2.5 mmol/L (3.5-5.1)
[2019-06-23] MEDS ORDERED: MAGNESIUM SULFATE 1 gm IVPB 1 GM/100 ML BAG IV ONE (21:29)
[2019-06-23] MEDS ORDERED: METOPROLOL TARTRATE 5 MG/5 ML INJ IV ONE (21:29)
[2019-06-23 21:47] LABS: Barbiturates NEGATIVE (NEGATIVE); Benzodiazepines NEGATIVE (NEGATIVE); Cocaine NEGATIVE (NEGATIVE); METHAMPHETAM NEGATIVE (NEGATIVE); Methadone NEGATIVE (NEGATIVE); Opiates NEGATIVE (NEGATIVE); Phencyclidine NEGATIVE (NEGATIVE); THC Cannibis NEGATIVE (NEGATIVE)
[2019-06-23] MEDS ORDERED: LORazepam 2 MG/ML VIAL ONE (21:57)
[2019-06-23 22:05] LABS: Urine Blood TRACE (NEG); Urine Glucose TRACE (NEG); Urine Protein NEGATIVE (NEG)
--- NOTE | 2019-06-23 22:07 | ER ---
Nurse's Notes [facility] Name: Prakash Bailey Age: 68 yrs Sex: Male : 1950 Arrival Date: 06/23/2019 Time: 19:32 Bed 3 Private MD: Diagnosis: Altered mental status, unspecified;Alcohol abuse with intoxication;Hypokalemia;Type 1 diabetes mellitus;Atrial fibrillation and flutter Presentation: 06/23 19:40 Presenting complaint: EMS states: "we were called out for a person having suicidal jd3 thoughts. police had him restrained when we arrived. we had to put him in soft restraints or he would be trying hit everyone. he reported to us that he had taken drugs and drank some alcohol and that he wanted to kill himself." when asking the patient if he wants to hurt himself the patient stated: "I don't want to hurt myself, I want to kill myself, there is a difference.". Transition of care: patient was not received from another setting of care. Onset of symptoms was June 23, 2019. Risk Assessment: Do you want to hurt yourself or someone else? Patient reports desire/thoughts of hurting themselves or someone else. Provider notified. Note on the patient's arrival, soft restraints remained on the patient for his safety as he continuously tried to get out of bed and kick or hit medical staff. the patient continued to cuss at nursing staff and EMS at bedside. Care prior to arrival: Restraints applied. 19:40 Method Of Arrival: EMS: [facility] jd3 19:40 Acuity: BILL 2 jd3 20:00 Initial Sepsis Screen: Does the patient meet any 2 criteria? RR > 20 per min. Altered lp1 Mental Status. HR > 90 bpm. Yes Does the patient have a suspected source of infection? No. Patient's initial sepsis screen is negative. Historical: - Allergies: 19:33 Aspirin; fc - Home Meds: 19:33 Unable to obtain [Active]; fc - PMHx: 19:33 Diabetes - IDDM; Substance Abuse; Hypertension; COPD; fc - PSHx: 19:33 Knee surgery; fc - Immunization history:: Last tetanus immunization: unknown. - Social history:: Smoking status: unknown Patient uses unknown. - Ebola Screening: : Unable to complete screening because. - Family history:: not pertinent. Screenin:49 Abuse screen: Denies threats or abuse. Nutritional screening: No deficits noted. jd3 Tuberculosis screening: No symptoms or risk factors identified. Fall Risk Fall in past 12 months (25 points). Mental Status- Overestimates/Forgets Limitations (15 pts.). Total Ibanez Fall Scale indicates Low Risk Score (25-44 pts). Fall prevention measures have been instituted. Side Rails Up X 2 Placed close to Nursing Station Frequent Obs/Assesments occuring. Assessment: 19:30 General: Appears unkempt, Behavior is anxious, combative. Neuro: Level of Consciousness lp1 is awake, Oriented to person, place. Respiratory: Airway is patent. Derm: Skin is intact, Skin is dry, Skin is normal. 19:30 Reassessment: Patient continuing to yell at staff, "You're just trying to fuck me, just lp1 let me !". 20:00 Reassessment: Patient attempting to get out of bed, pulling on arm restraints; lp1 drowsiness noted; nurse at bedside to calm patient. 20:15 Reassessment: Patient resting, eyes closed, respirations unlabored; appears calm at lp1 this time. Cardiovascular: Pulses are all present. 20:41 Reassessment: Lab at bedside for recollect; Patient noted with O2 at 89% on RA, NC at lp1 2L applied to patient. 21:30 Reassessment: Patient noted with HR in 150's, EKG done, Provider notified; Patient lp1 restless in bed, restraints continued. 21:30 General: Behavior is restless. Pain: Unable to use pain scale. FLACC scale score is 0 lp1 out of 10. Psych: 19:45 Subjective: Patient's mood is irritable, Delusions are denied, Hallucinations are lp1 denied Having thoughts of suicide. unknown plan, patient combative at this time. Objective: Patient is uncooperative, aggressive, belligerent, irritable, restless, Speech is normal, Affect is appropriate. Interventions: Searched person for dangerous items. Restraints: Patient placed in soft restraints as ordered by physician. Patient's physical safety, cardiac and respiratory status will continue to be monitored while in restraints. Suicide Risk Assessment: Sad Person Scale: Sex of patient: Male: Score 1 point. Age of patient: Score 1 point if patient is over 65. Depression: Score 1 point if signs of depression are present. Previous Attempt: Score 0 point if patient has not previously attempted suicide. Substance Abuse: Score 1 point if patient abuses alcohol or drugs. Rational Thinking: Score 1 point if patient is lacking rational thinking. Social Support: Score 1 point if social support is lacking and/or unavailable. Organized Plan: Score 0 if patient did not have an organized plan in place. Relationship: Score 1 point if patient is , , , or for a single male Chronic Sickness: Score 1 point if patient has illness, chronic, debilitating, or severe. TOTAL POINTS: If total points are 7-10, the proposed clinical action is to hospitalize or commit. Implement suicide precautions. Safety Checks: Personal items have not been removed. Patient combative, unable to remove clothing at this time Door is open. No visitors are present at this time. Patient uses unknown amount of ETOH unknown other substances. 20:00 Safety Checks: Personal items have been removed. Door is open. No visitors are present lp1 at this time. 20:15 Safety Checks: Personal items have been removed. Door is open. No visitors are present lp1 at this time. 20:30 Safety Checks: Personal items have been removed. Door is open. No visitors are present lp1 at this time. 20:45 Safety Checks: Personal items have been removed. Door is open. No visitors are present lp1 at this time. 20:55 Safety Checks: fa1 Vital Signs: 19:45 BP 142 / 89; Pulse 135; Resp 24; Temp 97(TE); Pulse Ox 94% on R/A; Weight 68.04 kg; lp1 20:00 BP 134 / 74; Pulse 125; Resp 21; Pulse Ox 97% on R/A; lp1 20:30 BP 112 / 73; Pulse 100; Resp 18; Pulse Ox 90% on R/A; lp1 21:00 BP 154 / 85; Pulse 113; Resp 19; Pulse Ox 94% on 2 lpm NC; lp1 21:30 BP 146 / 88; Pulse 118; Resp 20; Pulse Ox 97% on 2 lpm NC; lp1 22:00 BP 142 / 88; Pulse 100; Resp 20; Pulse Ox 95% on 2 lpm NC; lp1 23:00 BP 179 / 103; Pulse 137; Resp 22; Pulse Ox 98% on R/A; lp1 23:10 BP 156 / 88; Pulse 95; Resp 24; Pulse Ox 96% ; oe 23:14 BP 156 / 88; Pulse 105; Resp 24 S; Pulse Ox 96% on R/A; jd3 20:30 NC 2L applied lp1 ED Course: 19:32 Patient arrived in ED. fc 19:32 James Park MD is Attending Physician. umer 19:44 Gloria Arrieta RN is Primary Nurse. lp1 19:48 Triage completed. jd3 19:49 XRAY Chest (1 view) In Process Unspecified. EDMS 19:49 Arm band placed on Patient placed in an exam room, on a stretcher. jd3 19:50 Patient has correct armband on for positive identification. Bed in low position. Side jd3 rails up X2. Security at bedside. 20:15 Inserted saline lock: 20 gauge in right forearm, using aseptic technique. Blood lp1 collected. 21:00 Safety checks: Items removed: yes. Door open/sign placed on door: yes. Family/friend oe present: no. Sitter present: Yes. campus monitor on. Pulse ox on. Sitter at bedside. 21:00 Report given to RACHEL Kirk. lp1 21:25 Notified ED physician of a critical lab result(s). potassium of 2.5. fc 21:30 20 g IV to right FA DC'd due to infiltration. lp1 21:35 Inserted saline lock: 20 gauge in right forearm, using aseptic technique. lp1 21:40 Inserted saline lock: 22 gauge in left wrist, using aseptic technique. lp1 22:00 Safety checks: Items removed: Door open/sign placed on door: Sitter present: Yes. Bed oe in low position. Side rails up X2. 22:05 Carolyn Rivas MD is Hospitalizing Provider. umer 22:43 CT Head Brain wo Cont In Process Unspecified. EDMS 23:00 Safety checks: Door open/sign placed on door: yes. Sitter present: Yes. Bed in low oe position. Side rails up X2. 06/24 00:01 No provider procedures requiring assistance completed. lp1 Restraints: 06/23 19:30 Violent/Self Destructive Restraint: Order: obtained. Initiated June 23, 2019 at 19:30 lp1 Staff present during the Initiation of Restraint: Gloria Arrieta, RACHEL, Afshan Salvador, RN, Sangeetha Elizalde, RACHEL, Dr. Park. Family Notification/Education: Observed actions/behavior: destructive, violent, actively suicidal, severely aggressive, harming self/others, impaired decision making, unable to follow instructions, rptd attempts to remove/tamper lines/tubes/IV/med devices \\T\\ wnd dressing, verbally abusive, Less restrictive alternatives attempted: 1:1 patient care, placed near Nurse station, reoriented to location, verbal de-escalation performed, Alternative interventions: Ineffective. Clinical justification for use: Violent/self destructing behavior impacts therapeutic environment. Poses a serious danger to physical safety of self \\T\\ others. Face to Face Evaluatn: Immediate Situation: Patient combative on arrival to ED; Dr. Park at bedside Response of Patient to Restraint: Patient continued attempt to remove restraints, yelling at staff. 19:45 Violent/Self Destructive Restraint: Monitoring: Mental status: agitated/restless, lp1 Cognition: Impulsive, Circulation: Within defined parameters (based on Cardiovascular assessment). Skin integrity: Within defined parameters (based on Integumentary assessment). 20:00 Violent/Self Destructive Restraint: Monitoring: Mental status: agitated/restless, lp1 Cognition: poor safety awareness, Impulsive, Circulation: Within defined parameters (based on Cardiovascular assessment). Skin integrity: Within defined parameters (based on Integumentary assessment). 20:15 Violent/Self Destructive Restraint: Monitoring: Mental status: agitated/restless, lp1 Cognition: poor safety awareness, Circulation: Within defined parameters (based on Cardiovascular assessment). Skin integrity: Within defined parameters (based on Integumentary assessment). 20:30 Violent/Self Destructive Restraint: Monitoring: Mental status: patient asleep, lp1 Cognition: Unable to assess. Circulation: Within defined parameters (based on Cardiovascular assessment). Skin integrity: Within defined parameters (based on Integumentary assessment). 20:45 Violent/Self Destructive Restraint: Monitoring: Mental status: patient asleep, lp1 Cognition: Unable to assess. Circulation: Within defined parameters (based on Cardiovascular assessment). Skin integrity: Within defined parameters (based on Integumentary assessment). 21:15 Violent/Self Destructive Restraint: Order: Observed actions/behavior: actively fa1 suicidal, confusion/disorientation, impaired decision making, repeated attempts to get up from bed/chair without assistance. unable to follow instructions, Monitoring: Mental status: agitated/restless, confused. Cognition: poor judgement, poor safety awareness, unable to follow commands, Circulation: Within defined parameters (based on Cardiovascular assessment). Skin integrity: Within defined parameters (based on Integumentary assessment) Restraint status: Soft wrist restraint (Right) Soft wrist restraint (Left) Soft ankle restraint (Right) Soft ankle restraint (Left) Continued. 21:30 Violent/Self Destructive Restraint: Monitoring: Mental status: agitated/restless, fa1 confused. Cognition: poor judgement, poor safety awareness, Impulsive, Circulation: Within defined parameters (based on Cardiovascular assessment). Skin integrity: Within defined parameters (based on Integumentary assessment). 21:45 Violent/Self Destructive Restraint: Monitoring: Mental status: agitated/restless, fa1 confused. Cognition: poor judgement, poor safety awareness, Impulsive, Circulation: Within defined parameters (based on Cardiovascular assessment). Skin integrity: Within defined parameters (based on Integumentary assessment). 22:00 Violent/Self Destructive Restraint: Monitoring: Mental status: agitated/restless, fa1 confused. Cognition: poor judgement, poor safety awareness, Impulsive, Circulation: Within defined parameters (based on Cardiovascular assessment). Skin integrity: Within defined parameters (based on Integumentary assessment). 22:15 Violent/Self Destructive Restraint: Monitoring: Mental status: agitated/restless, fa1 confused. Cognition: poor judgement, poor safety awareness, Impulsive, poor attention/concentration, Circulation: Within defined parameters (based on Cardiovascular assessment). Skin integrity: Within defined parameters (based on Integumentary assessment). 22:30 Violent/Self Destructive Restraint: Monitoring: Mental status: agitated/restless, fa1 confused. Cognition: poor judgement, poor safety awareness, Impulsive, poor attention/concentration, Circulation: Within defined parameters (based on Cardiovascular assessment). Skin integrity: Within defined parameters (based on Integumentary assessment). 22:45 Violent/Self Destructive Restraint: Monitoring: Mental status: agitated/restless, fa1 confused. Cognition: poor judgement, poor safety awareness, Impulsive, Circulation: Within defined parameters (based on Cardiovascular assessment). Skin integrity: Within defined parameters (based on Integumentary assessment). 23:00 Violent/Self Destructive Restraint: Monitoring: Mental status: agitated/restless, fa1 confused. Cognition: poor judgement, poor safety awareness, Impulsive, Circulation: Within defined parameters (based on Cardiovascular assessment). Skin integrity: Within defined parameters (based on Integumentary assessment). 23:15 Violent/Self Destructive Restraint: Monitoring: Mental status: agitated/restless, fa1 confused. Cognition: Unable to assess. poor judgement, poor safety awareness, Impulsive, Circulation: Within defined parameters (based on Cardiovascular assessment). Skin integrity: Within defined parameters (based on Integumentary assessment) Restraint status:. 23:30 Violent/Self Destructive Restraint: Monitoring: Mental status: agitated/restless, fa1 confused. Cognition: poor judgement, poor safety awareness, Impulsive, Circulation: Within defined parameters (based on Cardiovascular assessment). Skin integrity: Within defined parameters (based on Integumentary assessment). 23:50 Violent/Self Destructive Restraint: Monitoring: Mental status: agitated/restless, fa1 confused. Cognition: poor judgement, poor safety awareness, Impulsive, Circulation: Within defined parameters (based on Cardiovascular assessment). Skin integrity: Within defined parameters (based on Integumentary assessment). Administered Medications: 19:39 Drug: Geodon 20 mg Route: IM; Site: left deltoid; lp1 20:15 Follow up: Response: Marked relief of symptoms lp1 20:30 Drug: Banana Bag - (NS 0.9% 1000 ml, foLIC Acid 1 mg, Thiamine 100 mg, Multivitamin 1 lp1 amp) Route: IV; Rate: 125 calculated rate; Site: right forearm; 21:03 CANCELLED (Duplicate Order): Thiamine 100 mg IV at bolus once lp1 21:03 CANCELLED (Duplicate Order): foLIC Acid 1 mg IVPB once lp1 21:04 CANCELLED (Duplicate Order): NS 0.9% 1000 ml IV at 1 bolus Per protocol; 1000 mL bolus lp1 21:30 Drug: NS 0.9% 1000 ml Route: IV; Rate: 1000 ml; Site: right forearm; lp1 0803 00:07 Follow up: Response: No adverse reaction; IV Status: Completed infusion; IV Intake: jd3 1000ml 06/23 21:39 Drug: Lopressor 5 mg Route: IVP; Site: right forearm; lp1 22:07 Follow up: Response: Marked relief of symptoms lp1 21:40 Drug: Magnesium Sulfate 1 grams Route: IVPB; Infused Over: 1 hrs; Site: right forearm; lp1 22:23 Drug: Ativan 2 mg Route: IVP; Site: right antecubital; jd3 23:15 Drug: Thiamine 100 mg Route: IV; Rate: bolus; Site: right antecubital; jd3 23:15 Drug: Potassium Chloride 20 mEq Route: IV; Rate: per protocol; Site: right antecubital; jd3 06/24 00:08 Not Given (Patient Refused): Potassium Effervescent Tablet 50 mEq PO once; dissolve in jd3 4 ounces of water or juice Intake: 00:07 IV: 1000ml; Total: 1000ml. jd3 Output: 06/23 21:30 Urine: 300ml (Voided); Total: 300ml. lp1 22:02 Urine: 800ml (Voided); Total: 1100ml. lp1 Outcome: 22:06 Decision to Hospitalize by Provider. umer 06/24 00:02 Admitted to ICU accompanied by nurse, via stretcher, on monitor, with chart, Report lp1 called to RACHEL Kirk, nurse at bedside as sitter critical Instructed on the need for admit. 00:09 Patient left the ED. fc Signatures: Dispatcher [employer] EDMS James Park MD MD cha Chretien, Felicia, RN RN Gloria Arrieta RN RN lp1 Reagan Rose RN RN fa1 Reid Dkyes Jonathon RN RN jd3 Corrections: (The following items were deleted from the chart) 06/23 20:43 20:41 Reassessment: Lab at bedside for recollect lp1 lp1 23:15 23:14 BP 156 / 88; Pulse 105bpm; Resp 24bpm; Spontaneous; Pulse Ox 96% 2 lpm Nasal jd3 Cannula; jd3 23:15 23:15 Pain: Complains of pain in Right first toenail jd3 jd3
--- NOTE | 2019-06-23 22:08 | EDPHYS ---
Physician Documentation [facility] Name: Prakash Bailey Age: 68 yrs Sex: Male : 1950 Arrival Date: 06/23/2019 Time: 19:32 Bed 3 Private MD: ED Physician [place] HPI: 06/23 19:35 This 68 yrs old Male presents to ER via Unassigned with complaints of ETOH umer Abuse, Suicidal Ideation. 19:35 The patient presents to the emergency department with psychosis. Onset: The umer symptoms/episode began/occurred 1 day(s) ago. Past psychiatric history: Prior diagnosis: schizophrenia, Psychiatric medications include: none. Associated signs and symptoms: Pertinent positives; anxiety, delusions, paranoia, substance abuse. Severity of symptoms: At their worst the symptoms were moderate in the emergency department the symptoms are unchanged. It is unknown whether or not the patient has had similar symptoms in the past. Historical: - Allergies: 19:33 Aspirin; fc - Home Meds: 19:33 Unable to obtain [Active]; fc - PMHx: 19:33 Diabetes - IDDM; Substance Abuse; Hypertension; COPD; fc - PSHx: 19:33 Knee surgery; fc - Immunization history:: Last tetanus immunization: unknown. - Social history:: Smoking status: unknown Patient uses unknown. - Ebola Screening: : Unable to complete screening because. - Family history:: not pertinent. ROS: 19:35 Constitutional: Negative for fever, chills, and weight loss, Eyes: Negative for injury, umer pain, redness, and discharge, ENT: Negative for injury, pain, and discharge, Neck: Negative for injury, pain, and swelling, Cardiovascular: Negative for chest pain, palpitations, and edema, Respiratory: Negative for shortness of breath, cough, wheezing, and pleuritic chest pain, Abdomen/GI: Negative for abdominal pain, nausea, vomiting, diarrhea, and constipation, Back: Negative for injury and pain, : Negative for injury, bleeding, discharge, and swelling, MS/Extremity: Negative for injury and deformity, Skin: Negative for injury, rash, and discoloration, Neuro: Negative for headache, weakness, numbness, tingling, and seizure, Endocrine: Negative for neck swelling, polydipsia, polyuria, polyphagia, and marked weight changes, Hematologic/Lymphatic: Negative for swollen nodes, abnormal bleeding, and unusual bruising. 19:35 Psych: Positive for alcohol dependence. Exam: 19:35 Head/Face: Normocephalic, atraumatic. Eyes: Pupils equal round and reactive to light, umer extra-ocular motions intact. Lids and lashes normal. Conjunctiva and sclera are non-icteric and not injected. Cornea within normal limits. Periorbital areas with no swelling, redness, or edema. ENT: Nares patent. No nasal discharge, no septal abnormalities noted. Tympanic membranes are normal and external auditory canals are clear. Oropharynx with no redness, swelling, or masses, exudates, or evidence of obstruction, uvula midline. Mucous membranes moist. Neck: Trachea midline, no thyromegaly or masses palpated, and no cervical lymphadenopathy. Supple, full range of motion without nuchal rigidity, or vertebral point tenderness. No Meningismus. Chest/axilla: Normal chest wall appearance and motion. Nontender with no deformity. No lesions are appreciated. Abdomen/GI: Soft, non-tender, with normal bowel sounds. No distension or tympany. No guarding or rebound. No evidence of tenderness throughout. Back: No spinal tenderness. No costovertebral tenderness. Full range of motion. Male : Normal genitalia with no discharge or lesions. Skin: Warm, dry with normal turgor. Normal color with no rashes, no lesions, and no evidence of cellulitis. MS/ Extremity: Pulses equal, no cyanosis. Neurovascular intact. Full, normal range of motion. 19:35 Cardiovascular: Rate: tachycardic, Rhythm: regular, Heart sounds: normal, JVD: is not appreciated. 19:35 Respiratory: the patient does not display signs of respiratory distress, Respirations: normal, Breath sounds: rhonchi. 19:35 Neuro: Orientation: unable to test, Mentation: inappropriate for stated age, Memory: unable to test, Cranial nerves: grossly normal, is grossly normal based on the patient's age, no acute changes, Cerebellar function: is grossly normal, is grossly normal based on the patient's age, no acute changes, Gait: not tested. Deep tendon reflexes are 2+ (normal) in the bilateral brachioradialis, bicep, tricep and patellar and Achilles tendons, seizure activity, is not displayed by the patient. Vital Signs: 19:45 BP 142 / 89; Pulse 135; Resp 24; Temp 97(TE); Pulse Ox 94% on R/A; Weight 68.04 kg; lp1 20:00 BP 134 / 74; Pulse 125; Resp 21; Pulse Ox 97% on R/A; lp1 20:30 BP 112 / 73; Pulse 100; Resp 18; Pulse Ox 90% on R/A; lp1 21:00 BP 154 / 85; Pulse 113; Resp 19; Pulse Ox 94% on 2 lpm NC; lp1 21:30 BP 146 / 88; Pulse 118; Resp 20; Pulse Ox 97% on 2 lpm NC; lp1 22:00 BP 142 / 88; Pulse 100; Resp 20; Pulse Ox 95% on 2 lpm NC; lp1 23:00 BP 179 / 103; Pulse 137; Resp 22; Pulse Ox 98% on R/A; lp1 23:10 BP 156 / 88; Pulse 95; Resp 24; Pulse Ox 96% ; oe 23:14 BP 156 / 88; Pulse 105; Resp 24 S; Pulse Ox 96% on R/A; jd3 20:30 NC 2L applied lp1 MDM: 19:32 Patient medically screened. [facility] 19:39 Data reviewed: vital signs, nurses notes, lab test result(s), EKG, radiologic studies, [facility] CT scan, plain films. 06/23 19:34 Order name: Basic Metabolic Panel [facility] 06/23 19:34 Order name: CBC with Diff [facility] 06/23 19:34 Order name: LFT's [facility] 06/23 19:34 Order name: Magnesium; Complete Time: 21:50 [facility] 06/23 19:34 Order name: NT PRO-BNP; Complete Time: 21:49 [facility] 06/23 19:34 Order name: PT-INR; Complete Time: 21:20 [facility] 06/23 19:34 Order name: Troponin (emerg Dept Use Only); Complete Time: 21:50 [facility] 06/23 19:34 Order name: Acetaminophen; Complete Time: 21:49 [facility] 06/23 19:34 Order name: ETOH Level; Complete Time: 21:20 [facility] 06/23 19:34 Order name: Ptt, Activated; Complete Time: 21:20 [facility] 06/23 19:34 Order name: Salicylate; Complete Time: 21:20 [facility] 06/23 19:34 Order name: Urine Drug Screen; Complete Time: 21:50 [facility] 06/23 19:35 Order name: CK; Complete Time: 21:50 [facility] 06/23 19:35 Order name: Ckmb; Complete Time: 21:50 [facility] 06/23 19:34 Order name: XRAY Chest (1 view); Complete Time: 21:20 [facility] 06/23 19:35 Order name: Basic Metabolic Panel; Complete Time: 21:50 EDMS 06/23 19:35 Order name: CBC with Automated Diff; Complete Time: 21:20 EDMS 06/23 19:35 Order name: Liver (Hepatic) Function; Complete Time: 21:50 EDMS 06/23 21:19 Order name: CT Head Brain wo Cont [facility] 06/23 21:51 Order name: Phosphorus [facility] 06/23 21:57 Order name: Urine Dipstick--Ancillary (enter results) cm6 06/23 23:03 Order name: CBC with Automated Diff EDMS 06/23 23:03 Order name: CBC with Automated Diff EDMS 06/23 23:03 Order name: Comprehensive Metabolic Panel EDMT 06/23 23:03 Order name: Comprehensive Metabolic Panel EDMT 06/23 19:34 Order name: EKG; Complete Time: 19:36 [facility] 06/23 19:34 Order name: Cardiac monitoring; Complete Time: 21:08 [facility] 06/23 19:34 Order name: EKG - Nurse/Tech; Complete Time: 21:56 [facility] 06/23 19:34 Order name: IV Saline Lock; Complete Time: 21:08 [facility] 06/23 19:34 Order name: Labs collected and sent; Complete Time: 21:08 [facility] 06/23 19:34 Order name: O2 Per Protocol; Complete Time: 21:09 [facility] 06/23 19:34 Order name: O2 Sat Monitoring; Complete Time: 21:08 [facility] 06/23 19:34 Order name: Urine Dipstick-Ancillary (obtain specimen); Complete Time: 21:56 [facility] 06/23 19:34 Order name: Restrain Patient; Complete Time: 19:45 [facility] 06/23 23:03 Order name: CONS Pharmacy Consult [facility] 06/23 23:03 Order name: Regular EDMS Administered Medications: 19:39 Drug: Geodon 20 mg Route: IM; Site: left deltoid; lp1 20:15 Follow up: Response: Marked relief of symptoms lp1 20:30 Drug: Banana Bag - (NS 0.9% 1000 ml, foLIC Acid 1 mg, Thiamine 100 mg, Multivitamin 1 lp1 amp) Route: IV; Rate: 125 calculated rate; Site: right forearm; 21:03 CANCELLED (Duplicate Order): Thiamine 100 mg IV at bolus once lp1 21:03 CANCELLED (Duplicate Order): foLIC Acid 1 mg IVPB once lp1 21:04 CANCELLED (Duplicate Order): NS 0.9% 1000 ml IV at 1 bolus Per protocol; 1000 mL bolus lp1 21:30 Drug: NS 0.9% 1000 ml Route: IV; Rate: 1000 ml; Site: right forearm; lp1 08 00:07 Follow up: Response: No adverse reaction; IV Status: Completed infusion; IV Intake: jd3 1000ml 06/23 21:39 Drug: Lopressor 5 mg Route: IVP; Site: right forearm; lp1 22:07 Follow up: Response: Marked relief of symptoms lp1 21:40 Drug: Magnesium Sulfate 1 grams Route: IVPB; Infused Over: 1 hrs; Site: right forearm; lp1 22:23 Drug: Ativan 2 mg Route: IVP; Site: right antecubital; jd3 23:15 Drug: Thiamine 100 mg Route: IV; Rate: bolus; Site: right antecubital; jd3 23:15 Drug: Potassium Chloride 20 mEq Route: IV; Rate: per protocol; Site: right antecubital; jd3 06/24 00:08 Not Given (Patient Refused): Potassium Effervescent Tablet 50 mEq PO once; dissolve in jd3 4 ounces of water or juice Disposition: 06/23/19 22:06 Hospitalization ordered by Carolyn Rivas for Inpatient Admission. Preliminary diagnosis are Altered mental status, unspecified, Alcohol abuse with intoxication, Hypokalemia, Type 1 diabetes mellitus, Atrial fibrillation and flutter. - Bed requested for Intensive Care Unit. - Status is Inpatient Admission. fc - Condition is Fair. - Problem is new. - Symptoms have improved. UTI on Admission? No Signatures: Dispatcher [employer] EDJames Patel MD MD cha Chretien, Felicia, RN RN Gloria Arrieta RN RN lp1 Javier Benitez RN RN jd3 Maximiliano Thorne RN RN rr5 Corrections: (The following items were deleted from the chart) 06/23 21:03 19:40 Thiamine 100 mg IV at bolus once ordered. [facility] lp1 21:03 19:40 foLIC Acid 1 mg IVPB once ordered. [place] [id number] : 19:34 NS 0.9% 1000 ml IV at 1 bolus Per protocol; 1000 mL bolus ordered. [facility] lp1 22:08 22:06 Hospitalization Ordered by Carolyn Rivas MD for Inpatient Admission. Preliminary [facility] diagnosis is Altered mental status, unspecified; Alcohol abuse with intoxication; Hypokalemia; Type 1 diabetes mellitus. Bed requested for Telemetry/MedSurg (Inpatient). Status is Inpatient Admission. Condition is Fair. Problem is new. Symptoms have improved. UTI on Admission? No. [facility] :24 22:08 06/23/2019 22:06 Hospitalization Ordered by Carolyn Rivas MD for Inpatient rr5 Admission. Preliminary diagnosis is Altered mental status, unspecified; Alcohol abuse with intoxication; Hypokalemia; Type 1 diabetes mellitus; Atrial fibrillation and flutter. Bed requested for Telemetry/MedSurg (Inpatient). Status is Inpatient Admission. Condition is Fair. Problem is new. Symptoms have improved. UTI on Admission? No. uemr 06/24 00:09 06/23 22:24 06/23/2019 22:06 Hospitalization Ordered by Carolyn Rivas MD for Inpatient fc Admission. Preliminary diagnosis is Altered mental status, unspecified; Alcohol abuse with intoxication; Hypokalemia; Type 1 diabetes mellitus; Atrial fibrillation and flutter. Bed requested for Intensive Care Unit. Status is Inpatient Admission. Condition is Fair. Problem is new. Symptoms have improved. UTI on Admission? No. rr5
[2019-06-23] MEDS ORDERED: KCL 20 MEQ/100 mL IVPB 40 MEQ/200 ML BAG IV ONE (22:25)
[2019-06-23] MEDS ORDERED: POTASSIUM 25 MEQ EFFERV TAB ONE (22:25)
[2019-06-23] MEDS ORDERED: NA CHLORIDE 0.9% 100 ML IV ONE (22:28)
[2019-06-23] MEDS ORDERED: METOPROLOL TARTRATE 5 MG/5 ML INJ IV STA (22:57)
[2019-06-23] MEDS ORDERED: ONDANSETRON 4 MG/2 ML VIAL IV PRN (22:58)
[2019-06-23] MEDS ORDERED: ACETAMINOPHEN 500 MG TAB PO PRN (22:58)
[2019-06-23] MEDS ORDERED: MORPHINE 2 MG/ML SYR IV PRN (22:58)
[2019-06-23] MEDS: D5 0.9 NS 1,000 ML IV SCH (23:00)
[2019-06-23] MEDS ORDERED: WATER FOR INJ,STERILE 10 ML IM PRN (23:02)
[2019-06-23] MEDS ORDERED: LORazepam 2 MG/ML VIAL IV PRN (23:02)
[2019-06-23] MEDS ORDERED: METOPROLOL TARTRATE 5 MG/5 ML INJ IV PRN (23:03)
[2019-06-23] MEDS ORDERED: CLONIDINE 0.2 MG/PATCH TD SCH (23:04)
[2019-06-24] MEDS: chlordiazePOXIDE HCl 25 MG CAP PO SCH ×3 (01:00→16:11)
[2019-06-24 05:16] LABS: Absolute Lymphocytes (CBC) 1.6 K/uL (0.7-4.9); Basophils % 0.9 % (0-1.3); Hematocrit 49.4 % (39.6-49.0); Lymphocytes % 18.8 % (15.3-44.8); MPV 8.8 fL (7.6-11.3); RBC Red Blood Cell Count 5.25 M/uL (4.33-5.43)
[2019-06-24 05:38] LABS: ALT/SGPT 12 U/L (12-78); AST/SGOT 15 U/L (15-37); Albumin 3.7 g/dL (3.4-5.0); Alkaline Phosphatase 88 U/L (45-117); BUN Blood Urea Nitrogen 7 mg/dL (7-18); Bicarbonate 22 mmol/L (21-32); Bilirubin Total 0.5 mg/dL (0.2-1.0); Glucose Level 151 mg/dL (74-106); Potassium 3.6 mmol/L (3.5-5.1); Protein, Total 7.2 g/dL (6.4-8.2); Sodium Level 144 mmol/L (136-145)
[2019-06-24] MEDS: D5 0.9 NS 1,000 ML IV SCH (05:57)
[2019-06-24] MEDS: METOPROLOL TAR 25 MG TAB PO SCH ×2 (05:57→18:16)
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
--- NOTE | 2019-06-24 06:47 | EKG ---
Test Date: 2019-06-23 Test Time: 21:12:21 Medical Secretary Teacher: ADAMS MEASUREMENT RESULTS: Intervals: Rate: 165 MS: QRSD: 84 QT: 298 QTc: 493 [place]: P: MS: QRS: 88 T: 78 INTERPRETIVE STATEMENTS: Atrial fibrillation with rapid ventricular response Septal infarct, age undetermined Abnormal ECG Compared to ECG 03/26/2019 21:50:04 Myocardial infarct finding now present Sinus tachycardia no longer present Electronically Signed On 06-24-19 06:45:59 CDT by Nathan Luis
[2019-06-24] MEDS ORDERED: D50W 25 GM/50 ML SYRINGE IV PRN (10:17)
[2019-06-24] MEDS ORDERED: GLUCAGON 1 MG/VIAL IM PRN (10:17)
[2019-06-24] MEDS: NICOTINE 21 MG/PAT TD SCH (11:10)
[2019-06-24] MEDS: INSULIN -REGULAR HUMAN 50 UNIT/0.5 ML ML SQ SCH ×3 (11:30→20:32)
--- NOTE | 2019-06-24 12:29 | P.PN ---
Subjective Date of Service: 06/24/19 Chief Complaint: Alcohol intoxication/suicidal ideations Patient seen and examined at bedside. No family at bedside. Chart reviewed and case discussed with nursing staff. Unsure of family, but patient states that he lives alone. Son's phone number listed on board but patient states that he does not see him that often. Patient does seem a little confused at this time. Passed bedside swallow study Currently with one-on-one for suicidal precautions Review of Systems 10-point ROS is otherwise unremarkable Physical Examination - Vital Signs Temperature: 97.6 F Blood Pressure: 139/74 Pulse: 61 Respirations: 21 Pulse Ox (%): 95 - Physical Exam General: Alert, In no apparent distress, Confused HEENT: Atraumatic, PERRLA, EOMI Neck: Supple, JVD not distended Respiratory: Clear to auscultation bilaterally, Normal air movement Cardiovascular: Regular rate/rhythm, Normal S1 S2 Gastrointestinal: Normal bowel sounds, No tenderness Musculoskeletal: No tenderness Integumentary: No rashes Neurological: Other (confusion) - Studies Laboratory Data (last 24 hrs) 06/23/19 20:49: Phosphorus 3.3 06/23/19 20:49: PT 11.9, INR 1.01, APTT 25.9 06/23/19 20:49: WBC 7.1, Hgb 16.2, Hct 47.3, Plt Count 173 06/23/19 20:49: Sodium 138, Potassium 2.5 L*, BUN 8, Creatinine 0.91, Glucose 137 H, Magnesium 1.9, Total Bilirubin 0.7, AST 16, ALT 16, Alkaline Phosphatase 81 Assessment And Plan - Current Problems (Diagnosis) (1) Suicidal ideation Current Visit: Yes Status: Acute Plan: Per chart review, patient was suicidal ideation and attempt by using drugs and alcohol. Patient still confused and unable to tell me or give me a good history. He will likely need a psych eval prior to discharge due to patient's prior history of suicidal ideation and assumed attempt this time. (2) Alcohol use Onset Date: 01/29/17 Current Visit: Yes Status: Acute Plan: Monitor for withdrawal symptoms - Switch fluids to banana bag - Continue PO librium - IV ativan prn agitation/withdrawal symptoms (3) Altered mental status Onset Date: 01/29/17 Current Visit: Yes Status: Acute Plan: Likely related to synthetic marijuana plus other drug usage along with alcohol - Unable to get a proper hx due to continued confusion - Will get PT evaluation once more awake Qualifiers: Altered mental status type: unspecified Qualified Code(s): R41.82 - Altered mental status, unspecified (4) Bipolar disorder Onset Date: 01/29/17 Current Visit: No Status: Chronic Qualifiers: Active/Remission status: currently active Current bipolar episode type: depressed Current episode severity: severe Psychotic features: without psychotic features Qualified Code(s): F31.4 - Bipolar disorder, current episode depressed, severe, without psychotic features (5) COPD (chronic obstructive pulmonary disease) Onset Date: 01/29/17 Current Visit: No Status: Chronic Plan: Continue breathing treatments as needed Qualifiers: Chronic bronchitis type: unspecified (6) Drug abuse Onset Date: 01/29/17 Current Visit: No Status: Chronic (7) Diabetes mellitus Onset Date: 01/29/17 Current Visit: No Status: Chronic Plan: Accu-checks and mild sliding scale insulin. Monitor and adjust as needed. Qualifiers: Diabetes mellitus type: type 2 Diabetes mellitus longterm insulin use: unspecified longterm insulin use status Diabetes mellitus complication status : without complication Qualified Code(s): E11.9 - Type 2 diabetes mellitus without complications (8) GERD (gastroesophageal reflux disease) Onset Date: 01/29/17 Current Visit: No Status: Chronic Qualifiers: Esophagitis presence: esophagitis presence not specified Qualified Code(s) : K21.9 - Gastro-esophageal reflux disease without esophagitis (9) Hyperlipidemia Onset Date: 01/29/17 Current Visit: No Status: Chronic Qualifiers: Hyperlipidemia type: unspecified Qualified Code(s): E78.5 - Hyperlipidemia , unspecified (10) Hypertension Onset Date: 01/29/17 Current Visit: No Status: Chronic Qualifiers: Hypertension type: essential hypertension Qualified Code(s): I10 - Essential (primary) hypertension (11) Hypothyroidism Onset Date: 01/29/17 Current Visit: No Status: Chronic Qualifiers: Hypothyroidism type: unspecified Qualified Code(s): E03.9 - Hypothyroidism , unspecified (12) Nicotine dependence Current Visit: No Status: Chronic Plan: Nicotine patch ordered for patient. Qualifiers: Nicotine product type: cigarettes Substance use status: uncomplicated Qualified Code(s): F17.210 - Nicotine dependence, cigarettes, uncomplicated - Plan DVT prophylaxis: Lovenox Diet: Diabetic diet (patient passed bedside swallow study) GI Prophylaxis: None Plan: Continue monitoring in ICU for withdrawal symptoms and suicide precautions. He will need psych eval prior to discharge
[2019-06-24] MEDS: FOLIC ACID 1 MG, MULTIVITAMINS INJ 10 ML, THIAMINE HCL 100 MG in NA CHLORIDE 0.9% 1,000 ML IV SCH (13:01)
[2019-06-24] MEDS ORDERED: WATER FOR INJ,STERILE 10 ML IM PRN (16:04)
[2019-06-24] MEDS ORDERED: ZIPRASIDONE MESYLA 20 MG/VIAL IM PRN (16:04)
[2019-06-24] MEDS ORDERED: LORazepam 2 MG/ML VIAL IV ONE (16:05)
[2019-06-24] MEDS: LORazepam 2 MG/ML VIAL IV PRN ×2 (16:15→19:40)
[2019-06-25] MEDS: chlordiazePOXIDE HCl 25 MG CAP PO SCH ×3 (01:04→18:38)
[2019-06-25] MEDS: METOPROLOL TAR 25 MG TAB PO SCH ×2 (05:19→18:37)
[2019-06-25] MEDS: INSULIN -REGULAR HUMAN 50 UNIT/0.5 ML ML SQ SCH ×4 (07:30→21:00)
[2019-06-25] MEDS: NICOTINE 21 MG/PAT TD SCH (08:36)
[2019-06-25] MEDS: FOLIC ACID 1 MG, MULTIVITAMINS INJ 10 ML, THIAMINE HCL 100 MG in NA CHLORIDE 0.9% 1,000 ML IV SCH (09:54)
[2019-06-25] MEDS: LORazepam 2 MG/ML VIAL IV PRN ×2 (11:57→14:00)
--- NOTE | 2019-06-25 12:05 | P.PN ---
Subjective Date of Service: 06/25/19 Chief Complaint: Alcohol intoxication/suicidal ideations Patient seen and examined at bedside. No family at bedside. Chart reviewed and case discussed with nursing staff. Unsure of family, but patient states that he lives alone. Son's phone number listed on board but patient states that he does not see him that often. Patient does seem a little confused at this time. Patient continues to endorse suicidal thoughts and ideations. States he wants to go home but not his house, but wants to kill himself. Currently with one-on-one for suicidal precautions Review of Systems 10-point ROS is otherwise unremarkable Physical Examination - Vital Signs Temperature: 97.2 F Blood Pressure: 159/75 Pulse: 59 Respirations: 18 Pulse Ox (%): 96 - Physical Exam General: Confused HEENT: Atraumatic, PERRLA, EOMI Neck: Supple, JVD not distended Respiratory: Clear to auscultation bilaterally, Normal air movement Cardiovascular: Regular rate/rhythm, Normal S1 S2 Gastrointestinal: Normal bowel sounds, No tenderness Musculoskeletal: No tenderness Integumentary: No rashes Assessment And Plan - Current Problems (Diagnosis) (1) Suicidal ideation Current Visit: Yes Status: Acute Plan: Per chart review, patient was suicidal ideation and attempt by using drugs and alcohol. Patient still confused and unable to tell me or give me a good history. He will need a psych eval prior to discharge due to patient's prior history of suicidal ideation and continued statements of wanting to kill himself. (2) Alcohol use Onset Date: 01/29/17 Current Visit: Yes Status: Acute Plan: Monitor for withdrawal symptoms - continue IV fluid - Continue PO librium - IV ativan prn agitation/withdrawal symptoms (3) Altered mental status Onset Date: 01/29/17 Current Visit: Yes Status: Acute Plan: Likely related to synthetic marijuana plus other drug usage along with alcohol - Unable to get a proper hx due to continued confusion - Will get PT evaluation once more awake (4) Bipolar disorder Onset Date: 01/29/17 Current Visit: No Status: Chronic (5) COPD (chronic obstructive pulmonary disease) Onset Date: 01/29/17 Current Visit: No Status: Chronic Plan: Continue breathing treatments as needed (6) Drug abuse Onset Date: 01/29/17 Current Visit: No Status: Chronic (7) Diabetes mellitus Onset Date: 01/29/17 Current Visit: No Status: Chronic Plan: Accu-checks and mild sliding scale insulin. Monitor and adjust as needed. (8) GERD (gastroesophageal reflux disease) Onset Date: 01/29/17 Current Visit: No Status: Chronic (9) Hyperlipidemia Onset Date: 01/29/17 Current Visit: No Status: Chronic (10) Hypertension Onset Date: 01/29/17 Current Visit: No Status: Chronic (11) Hypothyroidism Onset Date: 01/29/17 Current Visit: No Status: Chronic (12) Nicotine dependence Current Visit: No Status: Chronic Plan: Nicotine patch ordered for patient. - Plan DVT prophylaxis: Lovenox Diet: Diabetic diet (patient passed bedside swallow study) GI Prophylaxis: None Plan: Continue monitoring in ICU for withdrawal symptoms and suicide precautions. He will need psych eval once medically stable, possibly tomorrow.
[2019-06-25 13:03] LABS: ALT/SGPT 12 U/L (12-78); AST/SGOT 12 U/L (15-37); Albumin 3.1 g/dL (3.4-5.0); Alkaline Phosphatase 93 U/L (45-117); BUN Blood Urea Nitrogen 10 mg/dL (7-18); Bicarbonate 24 mmol/L (21-32); Bilirubin Total 0.5 mg/dL (0.2-1.0); Glucose Level 147 mg/dL (74-106); Potassium 3.4 mmol/L (3.5-5.1); Protein, Total 6.2 g/dL (6.4-8.2); Sodium Level 142 mmol/L (136-145)
[2019-06-25 13:04] LABS: Absolute Lymphocytes (CBC) 2.2 K/uL (0.7-4.9); Basophils % 0.7 % (0-1.3); Hematocrit 43.6 % (39.6-49.0); Lymphocytes % 28.4 % (15.3-44.8); MPV 9.2 fL (7.6-11.3); RBC Red Blood Cell Count 4.62 M/uL (4.33-5.43)
[2019-06-26] MEDS: chlordiazePOXIDE HCl 25 MG CAP PO SCH ×3 (00:31→17:37)
[2019-06-26] MEDS: LORazepam 2 MG/ML VIAL IV PRN ×3 (01:14→17:15)
[2019-06-26 05:20] VITALS: BMI 23.1
[2019-06-26] MEDS: METOPROLOL TAR 25 MG TAB PO SCH (06:00)
[2019-06-26] MEDS: INSULIN -REGULAR HUMAN 50 UNIT/0.5 ML ML SQ SCH ×3 (07:30→16:30)
[2019-06-26] MEDS: NICOTINE 21 MG/PAT TD SCH (10:01)
[2019-06-26] MEDS: FOLIC ACID 1 MG, MULTIVITAMINS INJ 10 ML, THIAMINE HCL 100 MG in NA CHLORIDE 0.9% 1,000 ML IV SCH (10:01)
--- NOTE | 2019-06-26 14:20 | RAD REPORT ---
EXAM DESCRIPTION: CT - Head Brain Wo Cont - 06/24/2019 3:38 am CLINICAL HISTORY: The patient is 68 years old and is Male; DIZZINESS TECHNIQUE: Axial computed tomography images of the head/brain without intravenous contrast. Sagitt al and coronal reformatted images were created and reviewed. This CT exam was performed using one o r more of the following dose reduction techniques: automated exposure control, adjustment of the mA and/or kV according to patient size, and/or use of iterative reconstruction technique. COMPARISON: CT of the head May 03, 2019. FINDINGS: BRAIN: There is diffuse cerebral atrophy present, consistent with this patient's age. There is patchy hypoattenuation of the deep white matter which is non-specific, but most likely owing to chronic small vessel ischemic change in a patient of this age group. Area of low attenuation wi thin the left frontal lobe is present, this is unchanged from prior exam. No intracranial hemorrhage, mass effect, or midline shift is seen. There are no extra-axial fluid collections. VENTRICLES: Unremarkable. No ventriculomegaly. BONES/JOINTS: No acute fracture. SOFT TISSUES: Unremarkable. SINUSES: Unremarkable as visualized. No acute sinusitis. MASTOID AIR CELLS: Unremarkable as visualized. No mastoid effusion. IMPRESSION: No acute intracranial findings. Chronic findings as above. Electronically signed by: Kate Magaña MD 06/23/2019 11:37 PM CDT Due to temporary technical issues with the PACS/Fluency reporting system, reports are being signed by the in house radiologist as a courtesy to ensure prompt reporting. The interpreting radiologist is f ully responsible for the content of the report.
[2019-06-26 15:35] VITALS: TEMP 98.6
--- NOTE | 2019-06-26 16:19 | P.DS ---
Admission Date: 06/23/19 Discharge Date: 06/26/19 Reason for Admission: Alcohol intoxication/suicidal ideations - Problems (1) Suicidal ideation Current Visit: Yes Status: Acute (2) Alcohol use Onset Date: 01/29/17 Current Visit: Yes Status: Acute (3) Altered mental status Onset Date: 01/29/17 Current Visit: Yes Status: Acute Qualifiers: Altered mental status type: unspecified Qualified Code(s): R41.82 - Altered mental status, unspecified (4) Bipolar disorder Onset Date: 01/29/17 Current Visit: No Status: Chronic Qualifiers: Active/Remission status: currently active Current bipolar episode type: depressed Current episode severity: severe Psychotic features: without psychotic features Qualified Code(s): F31.4 - Bipolar disorder, current episode depressed, severe, without psychotic features (5) COPD (chronic obstructive pulmonary disease) Onset Date: 01/29/17 Current Visit: No Status: Chronic Qualifiers: Chronic bronchitis type: unspecified (6) Drug abuse Onset Date: 01/29/17 Current Visit: No Status: Chronic (7) Diabetes mellitus Onset Date: 01/29/17 Current Visit: No Status: Chronic Qualifiers: Diabetes mellitus type: type 2 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 care home insulin use status Diabetes mellitus complication status : without complication Qualified Code(s): E11.9 - Type 2 diabetes mellitus without complications (8) GERD (gastroesophageal reflux disease) Onset Date: 01/29/17 Current Visit: No Status: Chronic Qualifiers: Esophagitis presence: esophagitis presence not specified Qualified Code(s) : K21.9 - Gastro-esophageal reflux disease without esophagitis (9) Hyperlipidemia Onset Date: 01/29/17 Current Visit: No Status: Chronic Qualifiers: Hyperlipidemia type: unspecified Qualified Code(s): E78.5 - Hyperlipidemia , unspecified (10) Hypertension Onset Date: 01/29/17 Current Visit: No Status: Chronic Qualifiers: Hypertension type: essential hypertension Qualified Code(s): I10 - Essential (primary) hypertension (11) Hypothyroidism Onset Date: 01/29/17 Current Visit: No Status: Chronic Qualifiers: Hypothyroidism type: unspecified Qualified Code(s): E03.9 - Hypothyroidism , unspecified (12) Nicotine dependence Current Visit: No Status: Chronic Qualifiers: Nicotine product type: cigarettes Substance use status: uncomplicated Qualified Code(s): F17.210 - Nicotine dependence, cigarettes, uncomplicated Brief History of Present Illness: Patient is a 68-year-old gentleman who came into the hospital intoxicated. Patient was obtunded and not making a lot of sense. The please had actually gone to his house because he was being suicidal. We arrived to the hospital he was already being restrained by police because he was being combative. He reported to us that he had taken drugs and drank some alcohol and that he wanted to kill himself." Patient stated: "I don't want to hurt myself, I want to kill myself, there is a difference." Soft restraints were placed on patient because he continuously tried to get out of bed and kick or hit medical staff. The patient continued to cuss at nursing staff throughout his stay in the emergency room. Hospital Course: This patient was admitted for this patient was intoxicated. He was admitted to the ICU, started on IV fluids, IV Ativan as needed. He also endorses subtle ideation. He continued to do so throughout the stay. He does have a history of drug abuse, bipolar disorder, diabetes, reflux, hyperlipidemia, hypertension , hypothyroidism. He does currently smoke in uses synthetic marijuana. He was medically stabilized, evaluated by [facility]. He was not a safe discharge home, as he was continued the endorsing suicidal ideation. He was working with physical therapy, getting out of bed. He was then transferred to a inpatient psych facility for further management and evaluation after being medically stabilized. He otherwise remained hemodynamically stable throughout the stay. He did required to get a warrant to transfer patient out to the inpatient psych facility. Vital Signs/Physical Exam: Temp Pulse Resp BP Pulse Ox 98.6 F 71 22 H 129/75 96 06/26/19 12:00 06/26/19 15:00 06/26/19 15:00 06/26/19 15:00 06/26/19 11:00 General: Alert, In no apparent distress, Other (Stating that he was alcohol) HEENT: Atraumatic, PERRLA, EOMI Neck: Supple, JVD not distended Respiratory: Clear to auscultation bilaterally, Normal air movement Cardiovascular: Regular rate/rhythm, Normal S1 S2 Gastrointestinal: Normal bowel sounds, No tenderness Musculoskeletal: No tenderness Integumentary: No rashes Neurological: Normal speech, Normal tone, Normal affect Lymphatics: No axilla or inguinal lymphadenopathy Laboratory Data at Discharge: WBC 7.7 K/uL (4.3-10.9) 06/25/19 12:32 Hgb 15.1 g/dL (13.6-17.9) 06/25/19 12:32 Hct 43.6 % (39.6-49.0) 06/25/19 12:32 Plt Count 174 K/uL (152-406) 06/25/19 12:32 PT 11.9 SECONDS (9.5-12.5) 06/23/19 20:49 INR 1.01 06/23/19 20:49 APTT 25.9 SECONDS (24.3-36.9) 06/23/19 20:49 Sodium 142 mmol/L (136-145) 06/25/19 12:32 Potassium 3.4 mmol/L (3.5-5.1) L 06/25/19 12:32 BUN 10 mg/dL (7-18) 06/25/19 12:32 Creatinine 0.66 mg/dL (0.55-1.3) 06/25/19 12:32 Glucose 147 mg/dL (74-106) H 06/25/19 12:32 Phosphorus 3.3 mg/dL (2.5-4.9) 06/23/19 20:49 Magnesium 1.9 mg/dL (1.8-2.4) 06/23/19 20:49 Total Bilirubin 0.5 mg/dL (0.2-1.0) 06/25/19 12:32 AST 12 U/L (15-37) L 06/25/19 12:32 ALT 12 U/L (12-78) 06/25/19 12:32 Alkaline Phosphatase 93 U/L (45-117) 06/25/19 12:32 Home Medications: Levothyroxine [Synthroid*] 0.05 mg PO [id number] #30 tablet 01/29/17 Pantoprazole [Protonix Tab*] 40 mg PO DAILYAC #30 tab 01/29/17 Albuterol Sulfate [Proair Hfa] 8.5 gm IH TID PRN #1 hfa.aer.ad 12/20/18 Budesonide/Formoterol Fumarate [Symbicort 160-4.5 Mcg Inhaler] 2 puff IH BID #1 hfa.aer.ad 12/20/18 Lisinopril [Prinivil*] 10 mg PO DAILY #30 tab 12/20/18 Metformin HCl 500 mg PO DAILY #30 tablet 12/20/18 Diet: Regular Activity: Ad pal
[2019-06-26 20:41] VITALS: BP 147/80; O2SAT 96
== END 2019-06-26 20:15 | DRG 897 ==
LOC: ER 19:30 → ERHOLD 23:16 → 3RD-ICU 23:41
PROVIDERS: ADMIT Hospitalist; ATTEND Family Medicine
DX: F10.129 Alcohol abuse with intoxication, unspecified (principal); R45.851 Suicidal ideations; F31.4 Bipolar disorder, current episode depressed, severe, without psychotic features; E11.9 Type 2 diabetes mellitus without complications; I10 Essential (primary) hypertension; J44.9 Chronic obstructive pulmonary disease, unspecified; K21.9 Gastro-esophageal reflux disease without esophagitis; F12.10 Cannabis abuse, uncomplicated; F17.210 Nicotine dependence, cigarettes, uncomplicated; E03.9 Hypothyroidism, unspecified; E78.5 Hyperlipidemia, unspecified; Z79.4 Long term (current) use of insulin
CPT/HCPCS: 36415; 70450; 71045; 80048; 80053; 80076; 80307; 80320; 80329; 81003; 82550; 82553; 82962; 83735; 83880; 84100; 84484; 85025; 85610; 85730; 93005; 96361; 96372; 96374; 96375; 97112; 97116; 97161; 99285; J3411; J3475; J3486; J7030

== ENCOUNTER 2019-12-05 21:47 | Inpatient (IN) | payer OTHER ==
[2019-12-05] MEDS ORDERED: NA CHLORIDE 0.9% 1,000 ML ONE ×3 (22:01→23:28)
[2019-12-05] MEDS ORDERED: propofoL 1,000 MG/100 ML VIAL IV ONE (22:01)
[2019-12-05] MEDS ORDERED: RSI MEDICATION KIT IV ONE (22:01)
[2019-12-05 22:27] LABS: Protime INR 0.98
[2019-12-05 22:33] LABS: Absolute Lymphocytes (CBC) 3.4 K/uL (0.7-4.9); Basophils % 0.8 % (0-1.3); Hematocrit 50.9 % (39.6-49.0); Lymphocytes % 23.6 % (15.3-44.8); MPV 9.7 fL (7.6-11.3); RBC Red Blood Cell Count 5.56 M/uL (4.33-5.43)
[2019-12-05 22:42] LABS: ALT/SGPT 19 U/L (12-78); AST/SGOT 18 U/L (15-37); Albumin 4.4 g/dL (3.4-5.0); Alkaline Phosphatase 138 U/L (45-117); BUN Blood Urea Nitrogen 12 mg/dL (7-18); Bilirubin Direct 0.2 mg/dL (0-0.2); Bilirubin Total 0.4 mg/dL (0.2-1.0); Glucose Level 239 mg/dL (74-106); Potassium 3.1 mmol/L (3.5-5.1); Protein, Total 8.4 g/dL (6.4-8.2); Sodium Level 138 mmol/L (136-145)
[2019-12-05 22:44] LABS: Bicarbonate 14 mmol/L (21-32)
[2019-12-05] MEDS ORDERED: SODIUM BICARB 50 MEQ/50ML VIAL ONE (22:46)
[2019-12-05] MEDS ORDERED: KCL 20 MEQ/100 mL IVPB 20 MEQ/100 ML BAG IV ONE (22:59)
[2019-12-05 23:12] LABS: Arterial Blood Carboxyhemoglob 3.6 % (0-1.5); Blood Gas Oxyhemoglobin 91.5 % (94-97); Blood O2 Saturation 95.8 % (92-98.5)
[2019-12-05] MEDS ORDERED: LABETALOL 20 MG/4ML SYRINGE IV ONE (23:12)
[2019-12-05] MEDS ORDERED: MIDAZOLAM HCL 2 MG/2 ML INJ ONE (23:12)
[2019-12-06 00:10] LABS: Barbiturates NEGATIVE (NEGATIVE); Benzodiazepines NEGATIVE (NEGATIVE); Cocaine NEGATIVE (NEGATIVE); METHAMPHETAM NEGATIVE (NEGATIVE); Methadone NEGATIVE (NEGATIVE); Opiates NEGATIVE (NEGATIVE); Phencyclidine NEGATIVE (NEGATIVE); THC Cannibis NEGATIVE (NEGATIVE)
--- NOTE | 2019-12-06 00:23 | EDPHYS ---
Physician Documentation [facility] Name: Prakash Bailey Age: 69 yrs Sex: Male : 1950 Arrival Date: 12/05/2019 Time: 21:50 Bed 3 Private MD: ED Physician Scotty Greenwood HPI: 12/05 23:47 This 69 yrs old Male presents to ER via EMS with complaints of Altered Mental jr8 Status. 23:47 The patient presents with agitation. Onset: The symptoms/episode began/occurred jr8 acutely, today. Possible causes: drug use, alcohol. Associated signs and symptoms: Pertinent positives: agitation, combativeness. Current symptoms: In the emergency department the patient's symptoms have improved. Patient's baseline: Neuro: alert and fully oriented, Motor: no deficits, Ambulation: walks without assistance, Speech: normal. It is unknown whether or not the patient has had similar symptoms in the past. It is unknown whether or not the patient has recently seen a physician. PD stated that patient has history of ETOH and Drug abuse. Started to have altercation with family over money. Stated that he was very irate on scene. EMS ended up having to sedate patient to control him. Patient given ketamine prior to ED arrival. Patient now sedated and non combative . Historical: - Allergies: 22:35 Aspirin; bb - Home Meds: 22:35 Unable to obtain [Active]; bb - PMHx: 22:35 COPD; Diabetes - IDDM; Hypertension; Substance Abuse; bb - PSHx: 22:35 Knee surgery; bb - Immunization history:: Adult Immunizations unknown. - Social history:: Smoking status: unknown Patient uses street drugs. - Ebola Screening: : No symptoms or risks identified at this time. ROS: 23:47 Unable to obtain ROS due to altered mental status, obtunded state. jr8 Exam: 23:47 ENT: Nares patent. No nasal discharge, no septal abnormalities noted. Oropharynx jr8 with no redness, swelling, or masses, exudates, or evidence of obstruction, uvula midline. Mucous membranes moist. Cardiovascular: Sinus Tachycardia with a normal S1 and S2. No gallops, murmurs, or rubs. Normal PMI, no JVD. No pulse deficits. Abdomen/GI: Soft with normal bowel sounds. No distension or tympany. Skin: Warm, dry with normal turgor. Normal color with no rashes, no lesions, and no evidence of cellulitis. MS/ Extremity: Pulses equal, no cyanosis. Neurovascular intact. Full, normal range of motion. 23:47 Eyes: Periorbital structures: appear normal, Pupils: right pupil is approximately 3 mm(s), left pupil is approximately 3 mm(s), Extraocular movements: intact throughout, Conjunctiva: injected, Corneas: are normal, Sclera: no appreciated abnormality, Anterior chamber: normal, Lids and lashes: appear normal. 23:47 Neck: External neck: is normal, no ecchymosis, no erythema, no mass, no rash, no swelling, C-spine: appears grossly normal, no crepitus, ROM/movement: is normal, is supple. 23:47 Respiratory: the patient does not display signs of respiratory distress, Respirations: shallow respirations, that is moderate, periods of apnea noted . 23:47 Neuro: Patient sedated and not following commands. Freely moving all extremities. Moves with painful stimulus . Vital Signs: 22:15 BP 164 / 89; Pulse 114; Resp 10 S; Pulse Ox 95% on 4 lpm NC; Weight 68.04 kg (R); bb 22:22 BP 224 / 112; Pulse 129; Resp 17 A; Pulse Ox 98% on BVM; bb 22:28 BP 204 / 90; Pulse 106; Resp 16; Pulse Ox 98% on 50% FiO2 ETT vent; bb 23:00 BP 233 / 124; Pulse 122; Resp 20; Pulse Ox 98% on 50% FiO2 ETT vent; bb 23:30 BP 114 / 75; Pulse 85; Resp 16; Temp 96(C); Pulse Ox 98% on 50% FiO2 ETT vent; bb 23:48 BP 172 / 123; Pulse 101; Resp 22; Temp 95.9(C); Pulse Ox 100% on 50% FiO2 ETT vent; bb 12/06 00:17 BP 144 / 100; Pulse 112; Resp 20; Temp 96.6(C); Pulse Ox 98% on 50% FiO2 ETT vent; bb 01:15 BP 94 / 66; Pulse 92; Resp 16; Temp 97.1; Pulse Ox 96% on 50% FiO2 ETT vent; ea 02:18 BP 108 / 71; Pulse 94; Resp 16; Temp 97.2(C); Pulse Ox 96% on 50% FiO2 ETT vent; ea 07:03 BP 142 / 79; Pulse 105; Resp 18; Temp 99.5(C); Pulse Ox 98% on ETT vent; sg [place] Coma Score: 12/05 23:47 Eye Response: to pain(2). Verbal Response: none(1). Motor Response: withdraws from jr8 pain(4). Total: 7. Ventilator: 22:28 Fi02: 50%; Rate: 16min; T.V.: 500ml; Peep: 5cm; Mode: CMV; ET tube: 7.5 mm (Oral); bb Procedures: 23:47 Intubation: Ventilated with 100% NRB prior to procedure. Intubated orally using # 4 jr8 Halie blade with 7.5 mm ETT. was successful on first attempt. Ventilated with Ambu bag. ventilator. Cricoid pressure applied during procedure. Tube secured with ETT up at center of mouth measured 22 cm at lip. Placement verified by CXR, CO2 detector with (+) color change, auscultating bilateral breath sounds, O2 saturation after procedure was 98 %. Patient tolerated well. MDM: 21:57 Patient medically screened. 12/06 00:17 Data reviewed: vital signs, nurses notes, lab test result(s), EKG, radiologic studies, jr CT scan, plain films. Data interpreted: Pulse oximetry: on room air is 90 %. Interpretation: hypoxia. Counseling: I had a detailed discussion with the patient and/or guardian regarding: the historical points, exam findings, and any diagnostic results supporting the discharge/admit diagnosis, lab results, radiology results, the need for further work-up and treatment in the hospital. Physician consultation: Carolyn Rivas MD was called at 00:21, was contacted at 00:21, regarding admission, to the ICU, consult, patient's condition, and will see patient. 12/05 21:57 Order name: Acetaminophen 12/05 21:57 Order name: Basic Metabolic Panel; Complete Time: 22:53 12/05 21:57 Order name: CBC with Diff; Complete Time: 22:53 [facility] 12/05 21:57 Order name: ETOH Level; Complete Time: 22:53 [facility] 12/05 21:57 Order name: Hepatic Function; Complete Time: 22:53 [facility] 12/05 21:57 Order name: PT-INR; Complete Time: 22:53 [facility] 12/05 21:57 Order name: Ptt, Activated; Complete Time: 22:53 [facility] 12/05 21:57 Order name: Salicylate; Complete Time: 00:27 [facility] 12/05 21:57 Order name: Urine Drug Screen; Complete Time: 00:13 [facility] 12/05 21:58 Order name: Acetaminophen Level; Complete Time: 22:53 MS 12/05 21:58 Order name: ABG; Complete Time: 23:58 [facility] 12/05 23:02 Order name: Urine Dipstick--Ancillary (enter results); Complete Time: 01:15 [facility] 12/06 00:42 Order name: Comprehensive Metabolic Panel EDMS 12/06 00:42 Order name: Comprehensive Metabolic Panel EDMS 12/05 22:27 Order name: XRAY Chest (1 view) ea 12/05 23:07 Order name: CT Head Brain wo Cont [facility] 12/06 00:42 Order name: Lactate EDMS 12/06 00:42 Order name: Lactate EDMS 12/06 00:44 Order name: ABG Arterial Blood Gas EDMS 12/06 00:44 Order name: ABG Arterial Blood Gas EDMS 12/06 00:44 Order name: CBC with Automated Diff EDMS 12/06 00:44 Order name: CBC with Automated Diff EDMS 12/06 00:45 Order name: Magnesium EDMS 12/06 00:45 Order name: Magnesium EDMS 12/06 00:45 Order name: Phosphorus EDMS 12/06 00:45 Order name: Phosphorus EDMS 12/06 00:45 Order name: NT PRO-BNP EDMS 12/06 00:45 Order name: NT PRO-BNP EDMS 12/06 08:51 Order name: Lactate Sepsis 2 HR Follow-up EDMS 12/05 21:57 Order name: EKG; Complete Time: 21:58 [facility] 12/05 21:57 Order name: EKG - Nurse/Tech; Complete Time: 22:59 [facility] 12/05 21:57 Order name: IV Saline Lock; Complete Time: 22:32 [facility] 12/05 21:57 Order name: Labs collected and sent; Complete Time: 22:32 [facility] 12/05 21:57 Order name: Urine Dipstick-Ancillary (obtain specimen); Complete Time: 22:42 8 12/05 22:32 Order name: Lito; Complete Time: 22:32 de 12/06 00:44 Order name: CONS Physician Consult [facility] 12/06 00:44 Order name: NPO EDIN 12/06 01:25 Order name: Restraint:Non-Violent; Complete Time: 01:25 ea Administered Medications: 12/05 22:18 Drug: Etomidate 20 mg Route: IVP; Site: left forearm; bb 22:30 Follow up: Response: No adverse reaction ea 22:18 Drug: Rocuronium 50 mg Route: IVP; Site: left forearm; bb 22:30 Follow up: Response: No adverse reaction ea 22:26 Drug: Propofol 40 mg Route: IVP; Site: left forearm; bb 22:30 Follow up: Response: No adverse reaction ea 22:27 Drug: Propofol 5 mcg/kg/min Route: IV; Rate: calculated rate; Site: left forearm; bb 12/06 07:05 Follow up: Rate change 40 mcg/kg/min 12/05 22:32 Drug: NS 0.9% 1000 ml Route: IV; Rate: 1000 ml; Site: right antecubital; ea 12/06 00:30 Follow up: Response: No adverse reaction; IV Status: Completed infusion; IV Intake: ea 1000ml 12/05 22:58 Drug: NS 0.9% 1000 ml Route: IV; Rate: 1000 ml; Site: right forearm; rv 12/06 00:30 Follow up: Response: No adverse reaction; IV Status: Completed infusion; IV Intake: ea 1000ml 12/05 22:58 Drug: Potassium Chloride 20 mEq Route: IV; Rate: calculated rate; Site: right forearm; rv 12/06 01:00 Follow up: Response: No adverse reaction; IV Status: Completed infusion ea 12/05 23:16 Drug: Versed 2 mg Route: IVP; Site: right forearm; 12/06 01:23 Follow up: Response: No adverse reaction ea 12/05 23:17 Drug: Labetalol 10 mg Route: IVP; Infused Over: 2 mins; Site: right forearm; bb 12/06 00:00 Follow up: Response: No adverse reaction ea 00:27 Drug: Ativan 2 mg Route: IVP; Site: right forearm; bb 00:35 Follow up: Response: No adverse reaction ea 02:53 Drug: Ativan 2 mg Route: IVP; Site: right forearm; ea Disposition: 12/06/19 00:22 Hospitalization ordered by Carolyn Rivas for Inpatient Admission. Preliminary diagnosis are Alcohol abuse, Altered mental status, unspecified. - Bed requested for Intensive Care Unit. - Status is Inpatient Admission. ss - Condition is Fair. - Problem is new. - Symptoms have improved. UTI on Admission? No Signatures: Dispatcher [employer] EDMS Roshni Andrade RN RN Rhona Luong RN RN Lyla Cagle RN RACHEL Sahka Lucas PA PA jr8 Natasha Santoro RN Shanita Solis mt, Elena RN Kale Montes ea RN Gustabo Hart RN sg Corrections: (The following items were deleted from the chart) 01:11 00:22 Hospitalization Ordered by Carolyn Rivas MD for Inpatient Admission. Preliminary cg diagnosis is Alcohol abuse; Altered mental status, unspecified. Bed requested for Intensive Care Unit. Status is Inpatient Admission. Condition is Fair. Problem is new. Symptoms have improved. UTI on Admission? No. jr8 09:17 01:11 12/06/2019 00:22 Hospitalization Ordered by Carolyn Rivas MD for Inpatient dw Admission. Preliminary diagnosis is Alcohol abuse; Altered mental status, unspecified. Bed requested for [facility] ER HOLD. Status is Inpatient Admission. Condition is Fair. Problem is new. Symptoms have improved. UTI on Admission? No. cg 10:30 09:17 12/06/2019 00:22 Hospitalization Ordered by Carolyn Rivas MD for Inpatient ss Admission. Preliminary diagnosis is Alcohol abuse; Altered mental status, unspecified. Bed requested for Intensive Care Unit. Status is Inpatient Admission. Condition is Fair. Problem is new. Symptoms have improved. UTI on Admission? No. dw
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
[2019-12-06] MEDS ORDERED: LORazepam 2 MG/ML VIAL ONE ×3 (00:26→09:50)
[2019-12-06] MEDS ORDERED: ONDANSETRON 4 MG/2 ML VIAL IV PRN (00:35)
[2019-12-06 00:58] LABS: Urine Blood 1+ (NEG); Urine Glucose TRACE (NEG); Urine Protein NEGATIVE (NEG); Urine Specific Gravity <1.005 (1.005-1.030); Urine pH 5.5 (5.0-7.0)
[2019-12-06] MEDS ORDERED: D5W 1,000 ML with NA BICARB 8.4% 50 MEQ IV SCH ×4 (01:00→13:00)
[2019-12-06] MEDS: ALBUTEROL 2.5 MG/3 ML NEB SOL NEB SCH ×4 (02:15→19:40)
[2019-12-06] MEDS: IPRATROPIUM BROM 0.5MG/2.5ML NEB SCH ×4 (02:15→19:40)
[2019-12-06] MEDS ORDERED: ALBUTEROL 2.5 MG/3 ML NEB SOL ONE ×2 (02:25→08:17)
[2019-12-06] MEDS ORDERED: IPRATROPIUM BROM 0.5MG/2.5ML ONE ×2 (02:25→08:17)
[2019-12-06] MEDS ORDERED: D5W 1,000 ML IV ONE (04:50)
[2019-12-06] MEDS ORDERED: propofoL 200 MG/20 ML VIAL IV ONE (05:36)
[2019-12-06] MEDS ORDERED: propofoL 1,000 MG/100 ML VIAL IV ONE ×2 (05:38→08:48)
[2019-12-06] MEDS ORDERED: ROCURONIUM 50 MG/5 ML VIAL IV ONE (06:00)
[2019-12-06] MEDS ORDERED: ETOMIDATE 20 MG/10 ML VIAL IV ONE (06:00)
--- NOTE | 2019-12-06 07:45 | EKG ---
Test Date: 2019-12-05 Test Time: 22:51:38 Contracting Executive: DENNIS MEASUREMENT RESULTS: Intervals: Rate: 113 CT: 194 QRSD: 90 QT: 332 QTc: 455 [place]: P: 73 CT: 194 QRS: 74 T: 63 INTERPRETIVE STATEMENTS: Sinus tachycardia Otherwise normal ECG Compared to ECG 06/23/2019 21:12:21 Atrial fibrillation no longer present Myocardial infarct finding no longer present Electronically Signed On 12-06-19 07:44:18 CARTON PACKAGING MACHINE OPERATOR by Nehemiah Skaggs
[2019-12-06 08:06] VITALS: BMI 22.1
--- NOTE | 2019-12-06 08:36 | RAD REPORT ---
EXAM DESCRIPTION: RAD - Chest Single View - 12/05/2019 10:40 pm CLINICAL HISTORY: ET tube placement Chest pain. COMPARISON: Chest Single View dated 06/23/2019; Chest Single View dated 05/03/2019; Chest Single View d ated 03/27/2019; Chest Single View dated 01/31/2019 FINDINGS: Portable technique limits examination quality. Tip of the ET tube is above john. Enteric tube descends into the stomach. The lungs are grossly chinyere ar. The heart is normal in size. No displaced fractures.
[2019-12-06] MEDS: ENOXAPARIN 40 MG/0.4 ML SQ SCH (09:00)
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
[2019-12-06] MEDS ORDERED: NA CHLORIDE 0.9% 250 ML IV PRN (09:19)
[2019-12-06] MEDS ORDERED: HALOPERIDOL LACT 5 MG/ML INJ ONE (09:50)
[2019-12-06] MEDS ORDERED: FENTANYL CITR 100 MCG/2 ML ONE (09:50)
[2019-12-06] MEDS: LORazepam 2 MG/ML VIAL IV PRN ×4 (09:57→19:25)
[2019-12-06] MEDS: HALOPERIDOL LACT 5 MG/ML INJ IV PRN ×4 (09:57→23:10)
[2019-12-06] MEDS: FENTANYL CITR 100 MCG/2 ML IV PRN ×4 (09:57→21:33)
[2019-12-06] MEDS ORDERED: ENOXAPARIN 40 MG/0.4 ML SQ ONE (10:03)
[2019-12-06] MEDS: MIDAZOLAM HCL 2 MG/2 ML INJ IV PRN ×4 (11:01→20:42)
[2019-12-06 11:11] LABS: Absolute Lymphocytes (CBC) 2.4 K/uL (0.7-4.9); Basophils % 1.1 % (0-1.3); Hematocrit 51.4 % (39.6-49.0); Lymphocytes % 16.4 % (15.3-44.8); MPV 8.9 fL (7.6-11.3); RBC Red Blood Cell Count 5.73 M/uL (4.33-5.43)
--- NOTE | 2019-12-06 12:30 | RAD REPORT ---
EXAM DESCRIPTION: Head Brain Wo Cont CLINICAL HISTORY: 69 years Male MENTAL STATUS CHANGE COMPARISON: None TECHNIQUE: Images were obtained in axial, sagittal, and coronal planes. This exam was performed according to our departmental dose-optimization program which includes use of Automated Exposure Control, adjustment of the mA and/or kV according to patient size and/or use of i terative reconstruction technique. FINDINGS: Ventricular system appears normal. No abnormal areas of increased or decreased attenuation are seen involving the brain parenchyma. No e xtra-axial fluid collections noted. The coastal thickening bilateral frontal, bilateral ethmoid, bilateral maxillary common sphenoid sinu ses. Mucosal thickening nasal turbinates bilaterally. Symmetric aeration of mastoid air cells bilater ally. Scalp soft tissue swelling with suspected hematoma anteriorly and laterally on the left. IMPRESSION: No acute intracranial abnormality. No evidence for hemorrhage, mass lesion, or large acu te infarction. Scalp soft tissue swelling with suspected hematoma anteriorly and laterally on the left. Electronically signed by: Ruthy Gregg MD 12/06/2019 12:46 AM UNDERCAR SPECIALIST Due to temporary technical issues with the PACS/Fluency reporting system, reports are being signed by the in house radiologist as a courtesy to ensure prompt reporting. The interpreting radiologist is f ully responsible for the content of the report.
[2019-12-06 13:04] LABS: Magnesium 1.9 mg/dL (1.8-2.4); Potassium 3.4 mmol/L (3.5-5.1)
[2019-12-06] MEDS: KCL 20 MEQ/100 mL IVPB 20 MEQ/100 ML BAG IV SCH ×2 (13:17→15:45)
--- NOTE | 2019-12-06 14:01 | P.PN ---
Subjective Date of Service: 12/06/19 Primary Care Provider: Unknown Chief Complaint: Airway protection/ intubation Subjective: Other (Patient currently intubated) Physical Examination - Vital Signs Temperature: 99.5 F Blood Pressure: 159/80 Pulse: 106 Respirations: 19 Pulse Ox (%): 99 - Physical Exam General: Other (Patient intubated and sedated) Neck: Supple Respiratory: Clear to auscultation bilaterally Cardiovascular: Other (Slightly tachycardic) Gastrointestinal: Normal bowel sounds, No ascites, No tenderness, No masses Integumentary: No erythema, No warmth, No cyanosis - Studies Laboratory Data (last 24 hrs) 12/05/19 22:00: PT 11.6, INR 0.98, APTT 27.3 12/05/19 22:00: WBC 14.6 H, Hgb 17.9, Hct 50.9 H, Plt Count 260 12/05/19 22:00: Sodium 138, Potassium 3.1 L, BUN 12, Creatinine 1.32 H, Glucose 239 H, Total Bilirubin 0.4, AST 18, ALT 19, Alkaline Phosphatase 138 H Medications List Reviewed: Yes Assessment & Plan Discharge Plan: Home Plan to discharge in: Greater than 2 days Physician Review Additional Text: Impression: Altered mental status likely related to alcohol intoxication Acute respiratory failure related to medication with history of COPD Hypertension Diabetes mellitus type 2 Bipolar disorder Acute renal injury likely dehydration Plan: Altered mental status likely related to alcohol intoxication: Patient remains intubated. Will continue to monitor closely. Recheck alcohol level tomorrow. Patient came in intoxicated. Patient received ketamine in the ER. Continue IV fluids. Will monitor closely. Pulmonology consulted for further recommendation. Acute respiratory failure related to medication with history of COPD: Patient currently intubated at this time. Vent protocol in place. Case discussed with pulmonology. Will continue to monitor closely. Continue CBT medication. Hypertension: Will provide medication. Diabetes mellitus type 2: Monitor Accu-Cheks. Sliding scale in place. Bipolar disorder: Will need to check if patient is taking medication as an outpatient. Check to see patient is seen by psychiatry. Acute renal injury likely dehydration: Continue IV fluids. Will monitor and adjust appropriately. Time Spent Managing Pts Care (In Minutes): 55
[2019-12-06] MEDS: propofoL 1,000 MG/100 ML VIAL IV PRN ×2 (19:16→23:59)
[2019-12-06] MEDS: FAMOTIDINE 20 MG/2 ML VIAL IV SCH (20:34)
[2019-12-06] MEDS: D5 0.45 NS 1,000 ML IV SCH (23:59)
[2019-12-07] MEDS: LORazepam 2 MG/ML VIAL IV PRN ×5 (00:33→22:45)
[2019-12-07] MEDS: IPRATROPIUM BROM 0.5MG/2.5ML NEB SCH ×3 (01:35→14:00)
[2019-12-07] MEDS: ALBUTEROL 2.5 MG/3 ML NEB SOL NEB SCH ×4 (01:35→20:00)
[2019-12-07] MEDS: MIDAZOLAM HCL 2 MG/2 ML INJ IV PRN (02:04)
[2019-12-07] MEDS: KCL 20 MEQ/100 mL IVPB 20 MEQ/100 ML BAG IV SCH ×2 (02:18→04:25)
[2019-12-07] MEDS: FENTANYL CITR 100 MCG/2 ML IV PRN ×2 (03:52→18:45)
[2019-12-07] MEDS: propofoL 1,000 MG/100 ML VIAL IV PRN ×2 (04:26→10:16)
[2019-12-07 05:07] LABS: Absolute Lymphocytes (CBC) 1.8 K/uL (0.7-4.9); Basophils % 0.8 % (0-1.3); Hematocrit 44.8 % (39.6-49.0); Lymphocytes % 12.4 % (15.3-44.8); MPV 9.5 fL (7.6-11.3); RBC Red Blood Cell Count 4.99 M/uL (4.33-5.43)
[2019-12-07 05:24] LABS: ALT/SGPT 13 U/L (12-78); AST/SGOT 18 U/L (15-37); Albumin 3.1 g/dL (3.4-5.0); Alkaline Phosphatase 84 U/L (45-117); BUN Blood Urea Nitrogen 7 mg/dL (7-18); Bicarbonate 29 mmol/L (21-32); Bilirubin Total 0.9 mg/dL (0.2-1.0); Glucose Level 227 mg/dL (74-106); Magnesium 1.8 mg/dL (1.8-2.4); Phosphorus 2.1 mg/dL (2.5-4.9); Potassium 3.6 mmol/L (3.5-5.1); Protein, Total 6.3 g/dL (6.4-8.2); Sodium Level 140 mmol/L (136-145)
[2019-12-07] MEDS ORDERED: POTASSIUM PHOS IN 0.9 % NACL 15 MMOL/250 ML BAG IV ONE (05:30)
[2019-12-07] MEDS ORDERED: MAGNESIUM SULFATE 1 gm IVPB 1 GM/100 ML BAG IV ONE (05:30)
[2019-12-07 05:53] LABS: Arterial Blood Carboxyhemoglob 1.6 % (0-1.5); Blood Gas Oxyhemoglobin 94.3 % (94-97); Blood O2 Saturation 96.5 % (92-98.5)
--- NOTE | 2019-12-07 08:20 | RAD REPORT ---
EXAM DESCRIPTION: RAD - Chest Single View - 12/07/2019 5:56 am CLINICAL HISTORY: Intubated Chest pain. COMPARISON: Chest Single View dated 12/05/2019; Chest Single View dated 06/23/2019; Chest Single View d ated 05/03/2019; Chest Single View dated 03/27/2019 FINDINGS: Portable technique limits examination quality. The lungs are grossly clear. The heart is normal in size. ET tube tip is above the john. Enteric tu be tip is in the stomach.
[2019-12-07] MEDS: THIAMINE 200 MG/2 ML INJ IVP SCH (08:45)
[2019-12-07] MEDS: FAMOTIDINE 20 MG/2 ML VIAL IV SCH ×2 (08:46→20:44)
[2019-12-07] MEDS: ENOXAPARIN 40 MG/0.4 ML SQ SCH (08:47)
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
[2019-12-07] MEDS ORDERED: LORazepam 2 MG/ML VIAL IV ONE (09:52)
[2019-12-07] MEDS: D5 0.45 NS 1,000 ML IV SCH ×3 (10:00→16:02)
[2019-12-07] MEDS ORDERED: ACETAMINOPHEN 650MG/RECT SUPP PR PRN (13:42)
[2019-12-07] MEDS ORDERED: IPRATROPIUM BROM 0.5MG/2.5ML NEB PRN (14:24)
[2019-12-07] MEDS ORDERED: METOPROLOL TARTRATE 5 MG/5 ML INJ IV PRN (14:24)
--- NOTE | 2019-12-07 14:27 | P.PN ---
Subjective Date of Service: 12/07/19 Primary Care Provider: Unknown Chief Complaint: Airway protection/ intubation Subjective: Other (Patient intubated at this time.) Physical Examination - Vital Signs Temperature: 100.9 F Blood Pressure: 206/81 Pulse: 114 Respirations: 25 Pulse Ox (%): 93 - Physical Exam General: Alert, Other (Patient intubated) Respiratory: Clear to auscultation bilaterally, Normal air movement Cardiovascular: Other (Mild sinus tachycardia) - Studies Medications List Reviewed: Yes Assessment & Plan Discharge Plan: Home Plan to discharge in: Greater than 2 days Physician Review Additional Text: Impression: Altered mental status likely related to alcohol intoxication Acute respiratory failure related to medication with history of COPD Hypertension Diabetes mellitus type 2 Bipolar disorder Acute renal injury likely dehydration Plan: Altered mental status likely related to alcohol intoxication: Patient remains intubated. Spoke with pulmonology. Plan is to extubate patient. Need to obtain prior home medications. Acute respiratory failure related to medication with history of COPD: Patient to be extubated today. Will monitor closely. Await further recommendations from pulmonology. Hypertension: Will need to obtain and verify home medication. Will start metoprolol prn,. Diabetes mellitus type 2: Monitor Accu-Cheks. Sliding scale in place. Bipolar disorder: Will need to check if patient is taking medication as an outpatient. Patient with history of suicidal ideation. Check to see patient is seen by psychiatry. Acute renal injury likely dehydration: Continue IV fluids. Will monitor and adjust appropriately. Time Spent Managing Pts Care (In Minutes): 55
--- NOTE | 2019-12-07 16:25 | RAD REPORT ---
EXAM DESCRIPTION: RAD - Hand Right 2 View - 12/07/2019 4:07 pm CLINICAL HISTORY: Right hand pain and swelling, unknown triggering event COMPARISON: None. FINDINGS: No fracture is identified. No dislocation or periosteal reaction. Patient has mild IP joint degenerative change and mild degener ative change at the first MCP joint. Trapezial and degenerative change with the scaphoid and first me tacarpal present. There is mild narrowing of the radiocarpal row. Pronounced soft tissue swelling present over the hand. No air or foreign body. IMPRESSION: Pronounced right hand soft tissue swelling. No air or foreign body. Joint degenerative change as detailed. No acute or destructive bone process.
[2019-12-07] MEDS: HALOPERIDOL LACT 5 MG/ML INJ IV PRN (17:25)
[2019-12-07] MEDS: ZIPRASIDONE MESYLA 20 MG/VIAL IM PRN (21:14)
[2019-12-07] MEDS: WATER FOR INJ,STERILE 10 ML IM PRN (21:14)
[2019-12-08] MEDS: HALOPERIDOL LACT 5 MG/ML INJ IV PRN (01:00)
[2019-12-08] MEDS: D5 0.45 NS 1,000 ML IV SCH (01:16)
[2019-12-08] MEDS: ALBUTEROL 2.5 MG/3 ML NEB SOL NEB SCH (02:40)
[2019-12-08] MEDS: ZIPRASIDONE MESYLA 20 MG/VIAL IM PRN ×2 (03:55→20:30)
[2019-12-08] MEDS: WATER FOR INJ,STERILE 10 ML IM PRN ×2 (03:55→20:30)
[2019-12-08] MEDS: LORazepam 2 MG/ML VIAL IV PRN (05:54)
[2019-12-08 07:00] LABS: BUN Blood Urea Nitrogen 6 mg/dL (7-18); Bicarbonate 27 mmol/L (21-32); Glucose Level 194 mg/dL (74-106); Magnesium 2.1 mg/dL (1.8-2.4); Phosphorus 1.9 mg/dL (2.5-4.9); Potassium 3.2 mmol/L (3.5-5.1); Sodium Level 141 mmol/L (136-145)
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
[2019-12-08] MEDS ORDERED: ALBUTEROL 2.5 MG/3 ML NEB SOL NEB PRN (07:58)
--- NOTE | 2019-12-08 08:55 | RAD REPORT ---
EXAM DESCRIPTION: Kristen Single View12/08/2019 8:49 am CLINICAL HISTORY: Shortness of breath COMPARISON: December 07, 2019 FINDINGS: The lungs are hyperaerated Endotracheal and nasogastric tubes been removed The lungs appear clear of acute infiltrate. The heart is normal size IMPRESSION: No acute abnormalities displayed
[2019-12-08] MEDS: ENOXAPARIN 40 MG/0.4 ML SQ SCH ×2 (09:00→09:04)
[2019-12-08] MEDS: FAMOTIDINE 20 MG/2 ML VIAL IV SCH ×2 (09:04→20:47)
[2019-12-08] MEDS: THIAMINE 200 MG/2 ML INJ IVP SCH (09:05)
[2019-12-08] MEDS: ARFORMOTEROL TARTRATE 15 MCG/2 ML VIAL.NEB NEB SCH ×2 (12:09→20:10)
[2019-12-08] MEDS ORDERED: POTASSIUM PHOS IN 0.9 % NACL 15 MMOL/250 ML BAG IV ONE (15:42)
[2019-12-08] MEDS ORDERED: POTASSIUM 25 MEQ EFFERV TAB PO ONE (19:39)
[2019-12-08] MEDS: NICOTINE 21 MG/PAT TD SCH (20:47)
[2019-12-09] MEDS: D5 0.45 NS 1,000 ML IV SCH ×3 (00:52→12:00)
[2019-12-09] MEDS ORDERED: KCL 20 MEQ/100 mL IVPB 20 MEQ/100 ML BAG IV SCH (01:25)
[2019-12-09] MEDS: LORazepam 2 MG/ML VIAL IV PRN ×2 (03:21→23:24)
[2019-12-09] MEDS: ARFORMOTEROL TARTRATE 15 MCG/2 ML VIAL.NEB NEB SCH ×2 (08:50→20:10)
[2019-12-09] MEDS: NICOTINE 21 MG/PAT TD SCH ×2 (08:53→21:00)
[2019-12-09] MEDS: FAMOTIDINE 20 MG/2 ML VIAL IV SCH ×2 (08:53→20:59)
[2019-12-09] MEDS: THIAMINE 200 MG/2 ML INJ IVP SCH (08:53)
[2019-12-09] MEDS: ENOXAPARIN 40 MG/0.4 ML SQ SCH (08:53)
[2019-12-09 09:11] LABS: Absolute Lymphocytes (CBC) 1.5 K/uL (0.7-4.9); Hematocrit 42.9 % (39.6-49.0); Lymphocytes % 19.5 % (15.3-44.8); MPV 8.7 fL (7.6-11.3); RBC Red Blood Cell Count 4.74 M/uL (4.33-5.43)
[2019-12-09 09:37] LABS: BUN Blood Urea Nitrogen 5 mg/dL (7-18); Bicarbonate 26 mmol/L (21-32); Glucose Level 197 mg/dL (74-106); Phosphorus 2.1 mg/dL (2.5-4.9); Potassium 3.4 mmol/L (3.5-5.1); Sodium Level 142 mmol/L (136-145)
[2019-12-09] MEDS ORDERED: HYDRALAZINE HCL 20 MG/ML VIAL IV PRN (10:27)
[2019-12-09] MEDS: POTASS/SODIUM PHOSPHATE 1 PKT POWD.PACK PO SCH ×3 (10:29→13:20)
[2019-12-09] MEDS ORDERED: POTASSIUM 25 MEQ EFFERV TAB PO ONE ×2 (11:00→18:18)
[2019-12-09] MEDS ORDERED: D50W 25 GM/50 ML SYRINGE/VIAL IV PRN (11:14)
[2019-12-09] MEDS ORDERED: GLUCAGON 1 MG/VIAL IM PRN (11:14)
[2019-12-09] MEDS: AMLODIPINE 5 MG TAB PO SCH (11:49)
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
[2019-12-09] MEDS: TEMAZEPAM 15 MG CAP PO PRN (21:00)
[2019-12-09] MEDS: INSULIN GLARGINE 100 UNITS/ML SQ SCH (21:01)
[2019-12-10] MEDS: LORazepam 2 MG/ML VIAL IV PRN ×6 (01:15→22:30)
[2019-12-10] MEDS: WATER FOR INJ,STERILE 10 ML IM PRN ×2 (01:38→14:35)
[2019-12-10] MEDS: ZIPRASIDONE MESYLA 20 MG/VIAL IM PRN ×2 (01:38→14:35)
[2019-12-10 08:42] LABS: Absolute Lymphocytes (CBC) 1.5 K/uL (0.7-4.9); Basophils % 0.8 % (0-1.3); Hematocrit 44.2 % (39.6-49.0); Lymphocytes % 20.6 % (15.3-44.8); MPV 8.9 fL (7.6-11.3); RBC Red Blood Cell Count 4.91 M/uL (4.33-5.43)
[2019-12-10 08:48] LABS: ALT/SGPT 18 U/L (12-78); AST/SGOT 15 U/L (15-37); Albumin 2.9 g/dL (3.4-5.0); Alkaline Phosphatase 74 U/L (45-117); BUN Blood Urea Nitrogen 5 mg/dL (7-18); Bicarbonate 27 mmol/L (21-32); Bilirubin Total 0.5 mg/dL (0.2-1.0); Glucose Level 140 mg/dL (74-106); Magnesium 1.9 mg/dL (1.8-2.4); Phosphorus 3.5 mg/dL (2.5-4.9); Potassium 3.4 mmol/L (3.5-5.1); Protein, Total 6.9 g/dL (6.4-8.2); Sodium Level 144 mmol/L (136-145)
[2019-12-10] MEDS: THIAMINE 200 MG/2 ML INJ IVP SCH (08:52)
[2019-12-10] MEDS: AMLODIPINE 5 MG TAB PO SCH (08:52)
[2019-12-10] MEDS: ENOXAPARIN 40 MG/0.4 ML SQ SCH (08:53)
[2019-12-10] MEDS: FAMOTIDINE 20 MG/2 ML VIAL IV SCH ×2 (08:53→19:54)
[2019-12-10] MEDS ORDERED: POTASSIUM 25 MEQ EFFERV TAB PO ONE ×2 (10:00→20:00)
[2019-12-10] MEDS ORDERED: MAGNESIUM SULFATE 1 gm IVPB 1 GM/100 ML BAG IV ONE (10:00)
[2019-12-10] MEDS: ARFORMOTEROL TARTRATE 15 MCG/2 ML VIAL.NEB NEB SCH ×2 (10:10→19:50)
[2019-12-10] MEDS ORDERED: AMLODIPINE 5 MG TAB PO ONE ×2 (13:00)
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
[2019-12-10] MEDS: FENTANYL CITR 100 MCG/2 ML IV PRN (19:15)
[2019-12-10] MEDS: NICOTINE 21 MG/PAT TD SCH (19:53)
[2019-12-10] MEDS: TEMAZEPAM 15 MG CAP PO PRN (19:54)
[2019-12-10] MEDS: INSULIN GLARGINE 100 UNITS/ML SQ SCH (19:55)
[2019-12-10] MEDS ORDERED: HYDROMORPHONE HCL 1 MG/ML INJ IV STA (20:42)
[2019-12-10] MEDS ORDERED: HYDROMORPHONE HCL 1 MG/ML INJ ONE (21:02)
[2019-12-11] MEDS: WATER FOR INJ,STERILE 10 ML IM PRN (00:16)
[2019-12-11] MEDS: ZIPRASIDONE MESYLA 20 MG/VIAL IM PRN (00:17)
[2019-12-11 05:57] LABS: Absolute Lymphocytes (CBC) 2.2 K/uL (0.7-4.9); Basophils % 0.7 % (0-1.3); Lymphocytes % 28.4 % (15.3-44.8); MPV 8.6 fL (7.6-11.3); RBC Red Blood Cell Count 5.03 M/uL (4.33-5.43)
[2019-12-11 06:22] LABS: BUN Blood Urea Nitrogen 9 mg/dL (7-18); Bicarbonate 28 mmol/L (21-32); Glucose Level 165 mg/dL (74-106); Magnesium 1.9 mg/dL (1.8-2.4); Phosphorus 3.5 mg/dL (2.5-4.9); Potassium 3.9 mmol/L (3.5-5.1); Sodium Level 141 mmol/L (136-145)
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
[2019-12-11] MEDS ORDERED: POTASSIUM 25 MEQ EFFERV TAB PO ONE (08:00)
[2019-12-11] MEDS: AMLODIPINE 10 MG TAB PO SCH (08:48)
[2019-12-11] MEDS: ZIPRASIDONE 20 MG CAP PO SCH ×2 (08:48→22:15)
[2019-12-11] MEDS: ENOXAPARIN 40 MG/0.4 ML SQ SCH (08:48)
[2019-12-11] MEDS: FAMOTIDINE 20 MG/2 ML VIAL IV SCH (08:55)
[2019-12-11] MEDS: THIAMINE 200 MG/2 ML INJ IVP SCH (09:03)
[2019-12-11] MEDS: ARFORMOTEROL TARTRATE 15 MCG/2 ML VIAL.NEB NEB SCH ×2 (11:55→20:05)
[2019-12-11] MEDS ORDERED: GLUCAGON 1 MG/VIAL IM PRN (17:44)
[2019-12-11] MEDS ORDERED: D50W 25 GM/50 ML SYRINGE/VIAL IV PRN (17:44)
[2019-12-11] MEDS: NICOTINE 21 MG/PAT TD SCH (22:15)
[2019-12-11] MEDS: TEMAZEPAM 15 MG CAP PO PRN (22:15)
[2019-12-11] MEDS: INSULIN -REGULAR HUMAN 50 UNIT/0.5 ML ML SQ SCH (22:15)
[2019-12-11] MEDS: INSULIN GLARGINE 100 UNITS/ML SQ SCH (22:15)
[2019-12-11] MEDS: LORazepam 2 MG/ML VIAL IV PRN (22:24)
[2019-12-11] MEDS ORDERED: FENTANYL CITR 100 MCG/2 ML ONE (22:55)
[2019-12-11] MEDS ORDERED: LORazepam 2 MG/ML VIAL ONE (22:55)
[2019-12-11] MEDS ORDERED: ZIPRASIDONE MESYLA 20 MG/VIAL IM ONE ×2 (22:56→23:40)
[2019-12-11] MEDS ORDERED: WATER FOR INJ,STERILE 10 ML ONE (22:56)
[2019-12-11] MEDS: FAMOTIDINE 20 MG TAB PO SCH (23:15)
[2019-12-11] MEDS ORDERED: FENTANYL CITR 100 MCG/2 ML IV PRN (23:32)
[2019-12-11] MEDS ORDERED: LORazepam 2 MG/ML VIAL IV PRN (23:38)
[2019-12-11] MEDS ORDERED: WATER FOR INJ,STERILE 10 ML IM PRN (23:40)
[2019-12-12 06:42] LABS: ALT/SGPT 19 U/L (12-78); AST/SGOT 19 U/L (15-37); Albumin 2.9 g/dL (3.4-5.0); Alkaline Phosphatase 76 U/L (45-117); BUN Blood Urea Nitrogen 12 mg/dL (7-18); Bicarbonate 27 mmol/L (21-32); Bilirubin Total 0.4 mg/dL (0.2-1.0); Glucose Level 122 mg/dL (74-106); Potassium 3.6 mmol/L (3.5-5.1); Protein, Total 6.5 g/dL (6.4-8.2); Sodium Level 140 mmol/L (136-145)
[2019-12-12] MEDS: INSULIN -REGULAR HUMAN 50 UNIT/0.5 ML ML SQ SCH ×4 (07:30→21:18)
[2019-12-12] MEDS: ARFORMOTEROL TARTRATE 15 MCG/2 ML VIAL.NEB NEB SCH ×2 (08:00→20:20)
[2019-12-12] MEDS: AMLODIPINE 10 MG TAB PO SCH (09:00)
[2019-12-12] MEDS: FAMOTIDINE 20 MG TAB PO SCH ×2 (09:42→21:02)
[2019-12-12] MEDS: ENOXAPARIN 40 MG/0.4 ML SQ SCH (09:42)
[2019-12-12] MEDS: ZIPRASIDONE 20 MG CAP PO SCH ×2 (09:43→21:02)
[2019-12-12] MEDS: THIAMINE 200 MG/2 ML INJ IVP SCH (09:43)
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
[2019-12-12] MEDS: ACETAMINOPHEN 500 MG TAB PO PRN (21:03)
[2019-12-12] MEDS: NICOTINE 21 MG/PAT TD SCH (21:04)
[2019-12-12] MEDS: INSULIN GLARGINE 100 UNITS/ML SQ SCH (21:05)
[2019-12-12 21:56] VITALS: O2SAT 98
[2019-12-13] MEDS: ACETAMINOPHEN 500 MG TAB PO PRN (05:00)
[2019-12-13 05:09] LABS: Absolute Lymphocytes (CBC) 2.6 K/uL (0.7-4.9); Basophils % 0.7 % (0-1.3); Hematocrit 45.4 % (39.6-49.0); Lymphocytes % 32.3 % (15.3-44.8); MPV 8.5 fL (7.6-11.3)
[2019-12-13 05:20] LABS: ALT/SGPT 26 U/L (12-78); AST/SGOT 23 U/L (15-37); Albumin 3.4 g/dL (3.4-5.0); Alkaline Phosphatase 80 U/L (45-117); BUN Blood Urea Nitrogen 12 mg/dL (7-18); Bicarbonate 30 mmol/L (21-32); Bilirubin Total 0.5 mg/dL (0.2-1.0); Glucose Level 113 mg/dL (74-106); Protein, Total 7.3 g/dL (6.4-8.2); Sodium Level 141 mmol/L (136-145)
[2019-12-13] MEDS: ARFORMOTEROL TARTRATE 15 MCG/2 ML VIAL.NEB NEB SCH (08:00)
[2019-12-13] MEDS: AMLODIPINE 10 MG TAB PO SCH (08:50)
[2019-12-13] MEDS: THIAMINE 200 MG/2 ML INJ IVP SCH (08:50)
[2019-12-13] MEDS: ENOXAPARIN 40 MG/0.4 ML SQ SCH (08:50)
[2019-12-13] MEDS: INSULIN -REGULAR HUMAN 50 UNIT/0.5 ML ML SQ SCH ×2 (08:51→12:33)
[2019-12-13] MEDS: FAMOTIDINE 20 MG TAB PO SCH (08:53)
[2019-12-13] MEDS ORDERED: AMOXICILLIN TRIHYDR 250 MG CAP PO SCH (09:00)
[2019-12-13 11:10] VITALS: BP 125/65
[2019-12-13 11:14] VITALS: TEMP 97.9
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
== END 2019-12-13 15:15 | disposition home or self-care (01) | DRG 208 ==
LOC: ER 21:47 → ERHOLD 12-06 02:26 → 3RD-ICU 12-06 10:17
PROVIDERS: ADMIT Hospitalist; ATTEND Family Medicine
PROC: 0BH17EZ Insertion of Endotracheal Airway into Trachea, Via Natural or Artificial Opening (ICD-10-PCS; principal; 2019-12-06)
PROC: 5A1945Z Respiratory Ventilation, 24-96 Consecutive Hours (ICD-10-PCS; 2019-12-06)
DX: J96.01 Acute respiratory failure with hypoxia (principal); G93.41 Metabolic encephalopathy; N17.9 Acute kidney failure, unspecified; F10.231 Alcohol dependence with withdrawal delirium; T51.0X1A Toxic effect of ethanol, accidental (unintentional), initial encounter; Y90.6 Blood alcohol level of 120-199 mg/100 ml; I10 Essential (primary) hypertension; F31.9 Bipolar disorder, unspecified; J42 Unspecified chronic bronchitis; E11.65 Type 2 diabetes mellitus with hyperglycemia; E87.6 Hypokalemia; E03.9 Hypothyroidism, unspecified
CPT/HCPCS: 31500; 36415; 51702; 70450; 71045; 80048; 80053; 80076; 80307; 80320; 80329; 81003; 82805; 82947; 83036; 83605; 83735; 83880; 84100; 84132; 84145; 85025; 85610; 85730; 87040; 93005; 94002; 94003; 94640; 97112; 97116; 97161; 97530; 99291; 99292; J1170; J1630; J1650; J1815; J2250; J2704; J3010; J3411; J3475; J3486; J7030; J7605; J7799

== ENCOUNTER 2019-12-14 21:19 | Observation (INO) | payer OTHER ==
[2019-12-14 22:29] LABS: Absolute Lymphocytes (CBC) 2.3 K/uL (0.7-4.9); Basophils % 0.9 % (0-1.3); Hematocrit 46.1 % (39.6-49.0); Lymphocytes % 14.9 % (15.3-44.8); MPV 8.3 fL (7.6-11.3); RBC Red Blood Cell Count 5.04 M/uL (4.33-5.43)
[2019-12-14] MEDS ORDERED: NA CHLORIDE 0.9% 1,000 ML ONE ×2 (22:29→22:46)
[2019-12-14] MEDS ORDERED: THIAMINE 200 MG/2 ML INJ ONE ×2 (22:29→22:46)
[2019-12-14 22:39] LABS: Protime INR 1.07
[2019-12-14 22:40] LABS: Barbiturates NEGATIVE (NEGATIVE); Benzodiazepines NEGATIVE (NEGATIVE); Cocaine NEGATIVE (NEGATIVE); METHAMPHETAM POSITIVE (NEGATIVE); Methadone NEGATIVE (NEGATIVE); Opiates NEGATIVE (NEGATIVE); Phencyclidine NEGATIVE (NEGATIVE); THC Cannibis NEGATIVE (NEGATIVE)
[2019-12-14 23:09] LABS: Urine Blood NEGATIVE (NEG); Urine Glucose NEGATIVE (NEG); Urine Protein NEGATIVE (NEG); Urine Specific Gravity 1.015 (1.005-1.030)
[2019-12-14 23:11] LABS: ALT/SGPT 29 U/L (12-78); AST/SGOT 30 U/L (15-37); Albumin 4.2 g/dL (3.4-5.0); Alkaline Phosphatase 89 U/L (45-117); BUN Blood Urea Nitrogen 23 mg/dL (7-18); Bicarbonate 23 mmol/L (21-32); Bilirubin Direct 0.2 mg/dL (0-0.2); Bilirubin Total 0.7 mg/dL (0.2-1.0); Glucose Level 109 mg/dL (74-106); Magnesium 1.8 mg/dL (1.8-2.4); NT PRO-BNP 251 pg/mL (<125); Potassium 4.3 mmol/L (3.5-5.1); Protein, Total 8.3 g/dL (6.4-8.2); Sodium Level 136 mmol/L (136-145); Troponin (Emerg Dept Use Only) < 0.02 ng/mL (0.0-0.045)
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
--- NOTE | 2019-12-14 23:15 | EDPHYS ---
Physician Documentation [facility] Name: Prakash Bailey Age: 69 yrs Sex: Male : 1950 Arrival Date: 12/14/2019 Time: 21:20 Bed 6 Private MD: ED Physician [place] HPI: 12/14 22:15 This 69 yrs old Male presents to ER via EMS with complaints of Altered Mental umer Status. 22:15 The patient presents with trouble concentrating. Onset: The symptoms/episode umer began/occurred just prior to arrival. Possible causes: drug use, alcohol, unknown. Associated signs and symptoms: Pertinent positives: ataxia. Patient's baseline: Neuro: alert and fully oriented, Motor: no deficits. The patient has experienced similar episodes in the past, multiple times. Historical: - Allergies: 21:31 Aspirin; jd3 - PMHx: 21:31 COPD; Diabetes - IDDM; Hypertension; Substance Abuse; jd3 - PSHx: 21:31 Knee surgery; jd3 - Immunization history:: Adult Immunizations unknown. - Social history:: Smoking status: Patient reports the use of cigarette tobacco products, smokes one pack cigarettes per day. - Ebola Screening: : Patient negative for fever greater than or equal to 101.5 degrees Fahrenheit, and additional compatible Ebola Virus Disease symptoms. - Family history:: not pertinent. ROS: 22:15 Constitutional: Negative for fever, chills, and weight loss, Eyes: Negative for injury, umer pain, redness, and discharge, ENT: Negative for injury, pain, and discharge, Neck: Negative for injury, pain, and swelling, Respiratory: Negative for shortness of breath, cough, wheezing, and pleuritic chest pain, Abdomen/GI: Negative for abdominal pain, nausea, vomiting, diarrhea, and constipation, Back: Negative for injury and pain, : Negative for injury, bleeding, discharge, and swelling, MS/Extremity: Negative for injury and deformity, Skin: Negative for injury, rash, and discoloration, Psych: Negative for depression, anxiety, suicide ideation, homicidal ideation, and hallucinations, Allergy/Immunology: Negative for hives, rash, and allergies, Endocrine: Negative for neck swelling, polydipsia, polyuria, polyphagia, and marked weight changes, Hematologic/Lymphatic: Negative for swollen nodes, abnormal bleeding, and unusual bruising. 22:15 Cardiovascular: Positive for palpitations. 22:15 MS/extremity: Positive for pain, of the right leg and left knee. Exam: 22:15 Constitutional: This is a well developed, well nourished patient who is awake, alert, umer and in no acute distress. Head/Face: Normocephalic, atraumatic. Eyes: Pupils equal round and reactive to light, extra-ocular motions intact. Lids and lashes normal. Conjunctiva and sclera are non-icteric and not injected. Cornea within normal limits. Periorbital areas with no swelling, redness, or edema. ENT: Nares patent. No nasal discharge, no septal abnormalities noted. Tympanic membranes are normal and external auditory canals are clear. Oropharynx with no redness, swelling, or masses, exudates, or evidence of obstruction, uvula midline. Mucous membranes moist. Neck: Trachea midline, no thyromegaly or masses palpated, and no cervical lymphadenopathy. Supple, full range of motion without nuchal rigidity, or vertebral point tenderness. No Meningismus. Chest/axilla: Normal chest wall appearance and motion. Nontender with no deformity. No lesions are appreciated. Cardiovascular: Regular rate and rhythm with a normal S1 and S2. No gallops, murmurs, or rubs. Normal PMI, no JVD. No pulse deficits. Respiratory: Lungs have equal breath sounds bilaterally, clear to auscultation and percussion. No rales, rhonchi or wheezes noted. No increased work of breathing, no retractions or nasal flaring. Abdomen/GI: Soft, non-tender, with normal bowel sounds. No distension or tympany. No guarding or rebound. No evidence of tenderness throughout. Back: No spinal tenderness. No costovertebral tenderness. Full range of motion. Male : Normal genitalia with no discharge or lesions. Skin: Warm, dry with normal turgor. Normal color with no rashes, no lesions, and no evidence of cellulitis. Psych: Awake, alert, with orientation to person, place and time. Behavior, mood, and affect are within normal limits. 22:15 Musculoskeletal/extremity: ROM: full active range of motion, full passive range of motion, Circulation is intact in all extremities. Sensation intact. Compartment Syndrome exam of affected extremity: is normal. Joints: the left knee and right knee displays painful range of motion. Vital Signs: 21:31 BP 131 / 75; Pulse 110; Resp 18 S; Temp 98.1(O); Pulse Ox 96% on R/A; Weight 72.57 kg jd3 (R); Height 5 ft. 6 in. (167.64 cm) (R); Pain 8/10; 22:53 BP 144 / 78; Pulse 106; Resp 17; Pulse Ox 95% on R/A; rv 12/15 00:04 BP 146 / 93; Pulse 106; Resp 17 S; Pulse Ox 97% on R/A; jd3 12/14 21:31 Body Mass Index 25.82 (72.57 kg, 167.64 cm) jd3 MDM: 12/14 21:40 Patient medically screened. [facility] 22:18 Data reviewed: vital signs, nurses notes, lab test result(s), EKG, radiologic studies, [facility] CT scan, plain films. 12/14 21:42 Order name: Basic Metabolic Panel; Complete Time: 23:12 [facility] 12/14 21:42 Order name: CBC with Diff; Complete Time: 22:53 [facility] 12/14 21:42 Order name: LFT's; Complete Time: 23:12 [facility] 12/14 21:42 Order name: Magnesium; Complete Time: 23:12 [facility] 12/14 21:42 Order name: NT PRO-BNP; Complete Time: 23:12 [facility] 12/14 21:42 Order name: PT-INR; Complete Time: 22:53 [facility] 12/14 21:42 Order name: Troponin (emerg Dept Use Only); Complete Time: 23:12 [facility] 12/14 21:42 Order name: Acetaminophen; Complete Time: 23:12 [facility] 12/14 21:42 Order name: ETOH Level; Complete Time: 22:53 [facility] 12/14 21:42 Order name: Ptt, Activated; Complete Time: 22:53 [facility] 12/14 21:42 Order name: Salicylate; Complete Time: 23:12 [facility] 12/14 21:42 Order name: Urine Drug Screen; Complete Time: 22:53 [facility] 12/14 23:00 Order name: Urine Dipstick--Ancillary (enter results); Complete Time: 23:12 ar5 12/15 00:59 Order name: Comprehensive Metabolic Panel EDMS 12/14 21:42 Order name: XRAY Chest (1 view) [facility] 12/14 21:42 Order name: EKG; Complete Time: 21:43 [facility] 12/14 21:42 Order name: Cardiac monitoring; Complete Time: 22: [facility] 12/14 21:42 Order name: EKG - Nurse/Tech; Complete Time: 23:31 [facility] 12/14 21:42 Order name: IV Saline Lock; Complete Time: 22:31 [facility] 12/14 21:42 Order name: Labs collected and sent; Complete Time: : [facility] 12/14 21:42 Order name: O2 Per Protocol; Complete Time: 22: [facility] 12/14 21:42 Order name: O2 Sat Monitoring; Complete Time: 22: [facility] 12/14 21:42 Order name: CT Head Brain wo Cont [facility] 12/15 00:59 Order name: Social Service Consult [facility] 12/15 00:59 Order name: Regular [facility]VT 12/15 00:59 Order name: Magnesium [facility] 12/15 01:00 Order name: Protime (+INR) [facility] 12/15 01:00 Order name: Thyroid Stimulating Hormone [facility] 12/14 21:42 Order name: Urine Dipstick-Ancillary (obtain specimen); Complete Time: 22:31 [facility] Administered Medications: 22:31 Drug: NS 0.9% 1000 ml Route: IV; Rate: 1 bolus; Site: right antecubital; rv 23:31 Follow up: IV Status: Completed infusion; IV Intake: 1000ml rv 22:31 Drug: Thiamine 100 mg Route: IV; Rate: bolus; Site: right antecubital; rv 23:31 Follow up: IV Status: Completed infusion rv Disposition: 12/14/19 23:15 Hospitalization ordered by Betty Hayes for Inpatient Admission. Preliminary diagnosis are Altered mental status, unspecified, Abuse of non-psychoactive substances, Alcohol abuse, Adverse effect of amphetamines, Type 1 diabetes mellitus. - Bed requested for Telemetry/MedSurg (Inpatient). - Status is Inpatient Admission. eb - Condition is Fair. - Problem is new. - Symptoms have improved. UTI on Admission? No Signatures: Dispatcher [employer] EDVT James Park MD MD cha Garcia, Cindy, RN RN cg Davies, Jonathon, RN RN jd3 Botello, Elizabeth eb Vicente, Ronaldo, RN RN rv Corrections: (The following items were deleted from the chart) 12/15 00:29 12/14 23:15 Hospitalization Ordered by Betty Hayes MD for Inpatient Admission. cg Preliminary diagnosis is Altered mental status, unspecified; Abuse of non-psychoactive substances; Alcohol abuse; Adverse effect of amphetamines; Type 1 diabetes mellitus. Bed requested for Telemetry/MedSurg (Inpatient). Status is Inpatient Admission. Condition is Fair. Problem is new. Symptoms have improved. UTI on Admission? No. umer 12/15 07:09 00:29 12/14/2019 23:15 Hospitalization Ordered by Betty Hayes MD for Inpatient eb Admission. Preliminary diagnosis is Altered mental status, unspecified; Abuse of non-psychoactive substances; Alcohol abuse; Adverse effect of amphetamines; Type 1 diabetes mellitus. Bed requested for [facility] ER HOLD. Status is Inpatient Admission. Condition is Fair. Problem is new. Symptoms have improved. UTI on Admission? No. cg 08:03 07:09 12/14/2019 23:15 Hospitalization Ordered by Betty Hayes MD for Inpatient eb Admission. Preliminary diagnosis is Altered mental status, unspecified; Abuse of non-psychoactive substances; Alcohol abuse; Adverse effect of amphetamines; Type 1 diabetes mellitus. Bed requested for Telemetry/MedSurg (Inpatient). Status is Inpatient Admission. Condition is Fair. Problem is new. Symptoms have improved. UTI on Admission? No. eb
[2019-12-15] MEDS ORDERED: ONDANSETRON 4 MG/2 ML VIAL IV PRN (00:57)
[2019-12-15] MEDS ORDERED: NA CHLORIDE 0.9% 1,000 ML IV SCH (01:00)
[2019-12-15] MEDS ORDERED: FOLIC ACID 1 MG, MULTIVITAMINS INJ 10 ML, THIAMINE HCL 100 MG in NA CHLORIDE 0.9% 1,000 ML IV ONE (01:00)
[2019-12-15] MEDS ORDERED: NA CHLORIDE 0.9% 2,000 ML ONE (01:24)
[2019-12-15] MEDS ORDERED: MULTIVITAMINS 10 ML VIAL (INJ) IV ONE (01:25)
[2019-12-15] MEDS ORDERED: FOLIC ACID 5 MG/ML VIAL ONE (01:26)
[2019-12-15] MEDS ORDERED: THIAMINE 200 MG/2 ML INJ ONE (01:31)
[2019-12-15 02:39] VITALS: BMI 25.8
[2019-12-15] MEDS ORDERED: LORazepam 2 MG/ML VIAL IV PRN ×2 (03:38)
[2019-12-15] MEDS ORDERED: LORAZEPAM 0.5 MG TABLET PO PRN (03:38)
[2019-12-15] MEDS ORDERED: LORAZEPAM 1 MG TABLET PO PRN (03:38)
[2019-12-15] MEDS ORDERED: HYDROCODONE/APAP 5/325 MG TAB PO PRN (03:44)
[2019-12-15] MEDS ORDERED: D50W 25 GM/50 ML SYRINGE/VIAL IV PRN (03:48)
[2019-12-15] MEDS ORDERED: GLUCAGON 1 MG/VIAL IM PRN (03:48)
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
[2019-12-15] MEDS ORDERED: ALBUTEROL 2.5 MG/3 ML NEB SOL NEB PRN (04:11)
[2019-12-15] MEDS ORDERED: IPRATROPIUM BROM 0.5MG/2.5ML NEB PRN (04:11)
[2019-12-15 05:46] LABS: Protime INR 1.11
[2019-12-15 06:05] LABS: Albumin 2.9 g/dL (3.4-5.0); Bilirubin Total 0.6 mg/dL (0.2-1.0); Magnesium 1.7 mg/dL (1.8-2.4); Protein, Total 6.2 g/dL (6.4-8.2); Thyroid Stimulating Hormone 1.73 uIU/mL (0.360-3.740)
[2019-12-15] MEDS ORDERED: INSULIN -REGULAR HUMAN 50 UNIT/0.5 ML ML SQ SCH (07:30)
[2019-12-15 08:18] VITALS: O2SAT 97
--- NOTE | 2019-12-15 08:35 | EKG ---
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
--- NOTE | 2019-12-15 08:45 | RAD REPORT ---
EXAM DESCRIPTION: RAD - Chest Single View - 12/14/2019 10:12 pm CLINICAL HISTORY: COUGH Chest pain. COMPARISON: Chest Single View dated 12/08/2019; Chest Single View dated 12/07/2019; Chest Single View dated 12/05/2019; Chest Single View dated 06/23/2019 FINDINGS: Portable technique limits examination quality. The lungs are mildly emphysematous but grossly clear. The heart is normal in size. No displaced fract ures. IMPRESSION: Mild COPD.
[2019-12-15] MEDS ORDERED: MULTIVITAMIN TAB PO SCH (09:00)
[2019-12-15] MEDS ORDERED: THIAMINE HCL 100 MG TABLET PO SCH (09:00)
[2019-12-15] MEDS ORDERED: FOLIC ACID 1 MG TABLET PO SCH (09:00)
[2019-12-15 10:08] LABS: Absolute Lymphocytes (CBC) 1.9 K/uL (0.7-4.9); Basophils % 0.9 % (0-1.3); Hematocrit 38.6 % (39.6-49.0); Lymphocytes % 24.3 % (15.3-44.8); MPV 8.5 fL (7.6-11.3); RBC Red Blood Cell Count 4.28 M/uL (4.33-5.43)
--- NOTE | 2019-12-15 10:46 | RAD REPORT ---
EXAM DESCRIPTION: CT of the head without contrast CLINICAL HISTORY: MENTAL STATUS CHANGE COMPARISON: 12/05/2019 TECHNIQUE: Axial CT of the head obtained from the skull apex to the skull base without contrast. FINDINGS: No acute intracranial hemorrhage identified. No mass, mass effect, shift of the midline, a bnormal extra-axial fluid collection or CT evidence of acute ischemic change identified. The ventricu lar system and sulcal spaces are nonenlarged. Scattered areas of hypodensity throughout the suprate ntorial white matter are nonspecific and may be related to chronic small vessel ischemic change. Mucosal thickening of the paranasal sinuses. Mastoid air cells are well aerated. No skull fracture identified. Visualized orbits and globes are unremarkable. Atherosclerotic calcification of the int racranial internal carotid arteries. IMPRESSION: 1. No acute intracranial abnormality by CT criteria. This exam was performed according to our departmental dose-optimization program, which includes autom ated exposure control, adjustment of the mA and/or kV according to patient size and/or use of iterati ve reconstruction technique. Electronically signed by: Elvis Mcbride 12/14/2019 10:55 PM [employer] INST[employer]ER Due to temporary technical issues with the PACS/Fluency reporting system, reports are being signed by the in house radiologist as a courtesy to ensure prompt reporting. The interpreting radiologist is f ully responsible for the content of the report.
[2019-12-15 12:36] VITALS: BP 118/56; TEMP 98.8
[2019-12-15 13:10] LABS: Blood Morphology Comment NOT SEEN (NOT SEEN); Platelet Estimate ADEQ
--- NOTE | 2019-12-15 13:25 | P.DS ---
Admission Date: 12/15/19 Discharge Date: 12/15/19 Disposition: ROUTINE DISCHARGE Discharge Condition: GOOD - Problems (1) Alcohol use Onset Date: 01/29/17 Status: Acute (2) Drug abuse Onset Date: 01/29/17 Status: Chronic Brief History of Present Illness: "Pt is a poor historian and therefore HPI is limited and obtained from chart review and medical staff. feroz john is a a 69yoM w/ pmhx of bipolar disorder, copd, etoh dependence , DM, HLD, HTN, who presents to the ER after being found wandering the streets and then entering a home that was not his own. he was previously admitted and was obtunded on arrival,however this episode he is awake but paranoid with pressured speech. due to previous admissions it would be appropriate to consider psych eval for capacity for decision making. also to consider is social work for placement as pt is appears to be roaming the streets and is unable to care for himself. he complains of pain in his "lungs" and his knees. otherwise no other complaints. on evaluation he is unsure of his answers and asks questions to determine where he is or what year it is. " Hospital Course: Patient's initial evaluation with UDS was positive for methamphetamine. Patient likely had drug induced psychosis, cannot rule out underlying psych disorder. He was admitted for observation. He was hydrated intravenously. Patient's mental status returned to baseline. He denied walking into people's home and stated that he had bilateral knee pain after walking for long distances. He acknowledged using alcohol however denied use of methamphetamine. Substance use cessation has been advised. Patient is currently awake, alert and oriented X3. He is oriented to the situation and wants to follow up outpatient for any care. Patient remained hemodynamically stable for discharge. He is currently asymptomatic. Vital Signs/Physical Exam: Temp Pulse Resp BP Pulse Ox 98.8 F 86 18 118/56 L 95 12/15/19 12:00 12/15/19 12:00 12/15/19 12:00 12/15/19 12:00 12/15/19 12:00 General: Alert, In no apparent distress, Disheveled HEENT: Atraumatic, PERRLA, EOMI Neck: Supple, JVD not distended Respiratory: Clear to auscultation bilaterally, Normal air movement Cardiovascular: Regular rate/rhythm, Normal S1 S2 Gastrointestinal: Normal bowel sounds, No tenderness Musculoskeletal: No tenderness Integumentary: No rashes Neurological: Normal speech, Normal tone, Normal affect Lymphatics: No axilla or inguinal lymphadenopathy Laboratory Data at Discharge: WBC 7.8 K/uL (4.3-10.9) D 12/15/19 09:59 Hgb 13.4 g/dL (13.6-17.9) L 12/15/19 09:59 Hct 38.6 % (39.6-49.0) L D 12/15/19 09:59 Plt Count 284 K/uL (152-406) 12/15/19 09:59 PT 13.1 SECONDS (9.5-12.5) H 12/15/19 05:21 INR 1.11 12/15/19 05:21 APTT 30.3 SECONDS (24.3-36.9) 12/14/19 22:15 Sodium 140 mmol/L (136-145) 12/15/19 05:21 Potassium 4.0 mmol/L (3.5-5.1) 12/15/19 05:21 BUN 19 mg/dL (7-18) H 12/15/19 05:21 Creatinine 0.93 mg/dL (0.55-1.3) 12/15/19 05:21 Glucose 142 mg/dL (74-106) H 12/15/19 05:21 Magnesium 1.7 mg/dL (1.8-2.4) L 12/15/19 05:21 Total Bilirubin 0.6 mg/dL (0.2-1.0) 12/15/19 05:21 AST 23 U/L (15-37) 12/15/19 05:21 ALT 25 U/L (12-78) 12/15/19 05:21 Alkaline Phosphatase 76 U/L (45-117) 12/15/19 05:21 Home Medications: Amlodipine [Norvasc*] 10 mg PO DAILY #30 tab 12/13/19 Amoxicillin 500 mg PO TID #15 tablet 12/13/19 Aripiprazole [Abilify] 5 mg PO DAILY #30 tablet 12/13/19 Folic Acid 1 mg PO DAILY #30 tablet 12/13/19 Metformin HCl 500 mg PO BID #60 tablet 12/13/19 Nicotine [Nicoderm*] 21 mg TD BEDTIME #30 patch.td24 12/13/19 Thiamine HCl 100 mg PO DAILY #30 tablet 12/13/19 Patient Discharge Instructions: Discontinue drug and alcohol use Diet: Regular Activity: Ad pal Followup: NONE,NONE [Primary Care Provider] - 1 Week
== END 2019-12-15 12:41 | disposition home or self-care (01) ==
LOC: ER 21:19 → ERHOLD 12-15 00:47 → 4TH 12-15 07:49
PROVIDERS: ADMIT Internal Medicine; ATTEND Hospitalist
DX: F10.10 Alcohol abuse, uncomplicated (principal); F15.10 Other stimulant abuse, uncomplicated; I10 Essential (primary) hypertension; E11.9 Type 2 diabetes mellitus without complications; E78.5 Hyperlipidemia, unspecified; E03.9 Hypothyroidism, unspecified; F31.9 Bipolar disorder, unspecified; Z96.653 Presence of artificial knee joint, bilateral; Z88.6 Allergy status to analgesic agent
CPT/HCPCS: 36415; 70450; 71045; 80048; 80053; 80076; 80307; 80320; 80329; 81003; 82947; 83735; 83880; 84443; 84484; 85025; 85610; 85730; 93005; 96365; 99285; G0378; J3411; J7030